=== PATIENT | female | born 1975 | race Caucasian/White ===

== ENCOUNTER → 2018-12-18 | Outpatient (CLI) | payer OTHER, SELFPAY ==
[2018-12-18 11:56] LABS: BUP Internal Control LINE = VALID (VALID); Buprenorphine Drug Screen Positive (<10 ng/mL)
[2018-12-18 12:11] LABS: Amphetamine Urine VISTA NEGATIVE (<1000 ng/mL); Barbiturate Urine VISTA NEGATIVE (< 200 ng/mL); Benzodiazepine Urine VISTA NEGATIVE (< 200 ng/mL); Cocaine Urine VISTA NEGATIVE (< 300 ng/mL); Ecstacy Urine VISTA POSITIVE (< 500 ng/mL); Methadone Urine VISTA NEGATIVE (< 300 ng/mL); PCP Urine VISTA NEGATIVE (< 25 ng/mL); THC Urine VISTA NEGATIVE (< 50 ng/mL); Vista UDS pH Range 5
== END | disposition home or self-care (01) ==
LOC: LAB 11:33
PROVIDERS: Family Provider Family Medicine; PCP Family Medicine; Referring Provider Anesthesiology Pain Medicine; Visit Provider Anesthesiology Pain Medicine
DX: F11.20 Opioid dependence, uncomplicated (principal)
CPT/HCPCS: 80307

== ENCOUNTER 2020-05-30 12:54 | Outpatient (RCR) | payer OTHER, SELFPAY ==
[2019-06-11 13:50] VITALS: BMI 48.7
--- NOTE | 2020-05-30 14:25 | HP.PTEVAL_ITS ---
Patient's Visit Information SARAVANAN POWELL is a 45 year old F referred to Physical Therapy by Dr. Sameer Matt MD with a diagnosis of Vertigo. Date of Evaluation: 05/30/20 Physical Therapist: LISA Mckinney - Visit Plan Frequency: 3x /Week Duration: 6 Weeks Plan: 2X/ week for 6 weeks for VOR progression from sitting to standing and then dynamic and habituation exercises wtih HEP. - Subjective This all started 05-03-2020. She started with her R ear was clogged and could not hear worse than before. She was very dizzy and was losing her balance and vomited. Ambulance and got her and she was in the hospital for 2 days and stroke was ruled out. Pt reports that she has vertigo. She describes it as dizzy nausea. She has better days than other days. Sometimes the room spins. She reports that one time she was just sitting and started spinning. Looking up is very hard for her. Normal day and will get very dizzy and nausea. She takes 2 of the meclazine and that helps some. She has had 2 major episodes since the hospital and the dizziness lasts an hour. Today she feels like her head is spacy....fighting a BHAGAT. She has had more BHAGAT. - Objective -L Hallpike for dizziness or nystagmus. -R Hallpike for dizziness or nystagmus but pt did not feel right and had increase in head pressure on the back of her head. Horizontal saccades.... increase head pressure on B side of head after about 20 seconds. Vertical saccades.... increased slight head pressure. head and eyes move together horizontal.... increase head pressure, slight dizziness, pt does not like to turn her head X 20 seconds but not steady... pt was clearly not comfortable doing this motion... made her head feel spacy. C-spine AROM: flex 100, ext 25% (increase dizzines), R rotation 50% and L Rotation 50%....hesitant to rotate sideways. Gait: walks very slow and guarded. Not able to walk and turn her head... she has to stop to turn her head and has a hard time turning to the L when standing as she feels she will go that dir ection. - Goals Goal 1:: I HEP Goal Time Frame: 1 Week Goal 2:: Be able to walk with head turns with a normal pace without getting dizzy or veering. Goal Time Frame: 4-6 Weeks Goal 3:: Be able to complete head and eye movements in standing X 60 seconds without dizziness Goal Time Frame: 4-6 Weeks - Rehabilitation Potential Rehabilitation Potential: Good - Anticipated Interventions Patient/Client Instruction: Educate patient on: Condition, Plan of Care For the Purpose of:: To increase ROM, To improve nutrient delivery to tissue, To improve muscle performance and motor function, To improve ability to perform ADL's, To increase tolerance to activity/condition/position, To improve performance and independence with ADL's, To decrease level of supervision to perform tasks, To improve ability of physical actions for home/community/work/leisure, To improve gait and locomotor functions, To decrease soft tissue restriction, To increase flexibility/ROM, To improve balance, To improve safety with gait Therapeutic Exercise to Include: Strength training, Balance training, Flexibilty training, Gait and locomotor training, Neuromotor development For the Purpose of:: To improve nutrient delivery to tissue, To increase oxygenation perfusion, To improve muscle performance and motor function, To improve ability to perform ADL's, To increase tolerance to activity/condition/position, To improve performance and independence with ADL's, To decrease level of supervision to perform tasks, To improve gait and locomotor functions, To improve health of tissue, To increase flexibility/ROM, To improve endurance, To improve balance, To improve safety with gait Functional Training to Include: Gait training For the Purpose of:: To improve gait and locomotor functions, To improve safety with gait Thank you for the opportunity to evaluate your patient. For Medicare and Medicare HMO plans, please review the plan of care and approve it. It will need to be FAXED BACK to us at [phone] for Medicare purposes. For Medicare only, by signing this I certify the plan of care. Please let me know if there are questions or concerns regarding this plan of care. Physician Signature: Date:
--- NOTE | 2020-08-09 11:46 | HP.PT.NRP ---
SARAVANAN POWELL was seen in my office for initial evaluation on 05/30/20. The following Plan of Care was established for this patient: Initial Frequency: 3x /Week Initial Duration: 6 Weeks Patient/Client Instruction: Educate patient on: Condition, Plan of Care For the Purpose of:: To increase ROM, To improve nutrient delivery to tissue, To improve muscle performance and motor function, To improve ability to perform ADL's, To increase tolerance to activity/condition/position, To improve performance and independence with ADL's, To decrease level of supervision to perform tasks, To improve ability of physical actions for home/community/work/leisure, To improve gait and locomotor functions, To decrease soft tissue restriction, To increase flexibility/ROM, To improve balance, To improve safety with gait Therapeutic Exercise to Include: Strength training, Balance training, Flexibilty training, Gait and locomotor training, Neuromotor development For the Purpose of:: To improve nutrient delivery to tissue, To increase oxygenation perfusion, To improve muscle performance and motor function, To improve ability to perform ADL's, To increase tolerance to activity/condition/position, To improve performance and independence with ADL's, To decrease level of supervision to perform tasks, To improve gait and locomotor functions, To improve health of tissue, To increase flexibility/ROM, To improve endurance, To improve balance, To improve safety with gait Functional Training to Include: Gait training For the Purpose of:: To improve gait and locomotor functions, To improve safety with gait This patient was last seen in our office 05/30/20. Pertinent comments regarding their Physical therapy will appear below: [facility] PT... pt cancelled his follow up appointment. At this point I will be discontinuing this patient from physical therapy. I would be happy to see this patient again in the future if found appropriate by the physician. Thank you! Alicia Calabrese, MPT
== END 2020-05-30 19:00 | disposition home or self-care (01) ==
LOC: PT 12:54
PROVIDERS: PCP Family Medicine; Referring Provider Family Medicine; Visit Provider Family Medicine
DX: R42 Dizziness and giddiness (principal)
CPT/HCPCS: 97162

== ENCOUNTER → 2020-11-24 08:53 | Outpatient (CLI) | payer OTHER, SELFPAY ==
[2019-06-11 13:50] VITALS: BMI 48.7
[2020-11-24 10:17] LABS: BUP Internal Control LINE = VALID (VALID); Buprenorphine Drug Screen Positive (<10 ng/mL)
[2020-11-24 10:26] LABS: Amphetamine Urine VISTA NEGATIVE (<1000 ng/mL); Barbiturate Urine VISTA NEGATIVE (< 200 ng/mL); Benzodiazepine Urine VISTA POSITIVE (< 200 ng/mL); Cocaine Urine VISTA NEGATIVE (< 300 ng/mL); Ecstacy Urine VISTA POSITIVE (< 500 ng/mL); Methadone Urine VISTA NEGATIVE (< 300 ng/mL); PCP Urine VISTA NEGATIVE (< 25 ng/mL); THC Urine VISTA NEGATIVE (< 50 ng/mL); Vista UDS pH Range 5
== END ==
PROVIDERS: PCP Family Medicine; Referring Provider Anesthesiology Pain Medicine; Visit Provider Anesthesiology Pain Medicine
DX: F11.20 Opioid dependence, uncomplicated (principal)
CPT/HCPCS: 80307

== ENCOUNTER 2021-01-15 01:24 | Emergency (ER) | payer OTHER, SELFPAY ==
[2019-06-11 13:50] VITALS: BMI 48.7
[2021-01-15 01:25] VITALS: BP 187/124; PULSE 90; RESP 28; TEMP 36.2; O2SAT 100; BMI 50.6
--- NOTE | 2021-01-15 01:35 | EX.ED.DYSGE1 ---
HPI History of Present Illness Chief Complaint: Flank Pain Narrative Narrative: 45-year-old female presenting with left flank pain. She states that the pain was acute in onset and woke her up from sleep. Patient states she had this pain in the past and was in the ED and had hematuria without finding of a kidney stone. She has associated nausea. Patient states that she has not had a kidney stone before. She has not had one since that time when she had flank pain. [facility] Medical History Anxiety and depression Arthritis Breast lump in female Carpal tunnel syndrome Diabetes Fibromyalgia Frequent headaches Hearing problem Hormone deficiency Home Medications buprenorphine 1 patch TD Q7D 04/12/17 [History Last Taken Unknown] cephalexin [Keflex] 500 mg PO 4X/DAY #30 capsule 04/12/17 [Rx Last Taken Unknown] duloxetine 60 mg PO BID 04/12/17 [History Last Taken Unknown] glimepiride 1 mg PO DAILY 04/12/17 [History Last Taken Unknown] metformin 1,000 mg PO BID 04/12/17 [History Last Taken Unknown] pregabalin 150 mg PO BID 04/12/17 [History Last Taken Unknown] tramadol 50 mg PO BID 04/12/17 [History Last Taken Unknown] alpha lipoic acid 300 mg capsule 300 mg PO DAILY 05/18/19 [History Last Taken Unknown] bupropion HCl 75 mg tablet 75 mg PO BID tab 05/18/19 [History Last Taken Unknown] cholecalciferol (vitamin D3) 250 mcg (10,000 unit) capsule 10,000 unit PO DAILY 05/18/19 [History Last Taken Unknown] conjugated estrogens 0.3 mg tablet 0.3 mg PO DAILY 05/18/19 [History Last Taken Unknown] esterified estrogens-methyltestosterone 0.625 mg-1.25 mg tablet 1 tab PO DAILY 05/18/19 [History Last Taken Unknown] metoprolol tartrate 25 mg tablet 25 mg PO BID 05/18/19 [History Last Taken Unknown] pyridoxine (vitamin B6) 100 mg tablet 100 mg PO DAILY 05/18/19 [History Last Taken Unknown] sulfamethoxazole-trimethoprim [Bactrim DS] 1 tab PO BID 14 Days #28 tab 01/15/21 [Rx Last Taken Unknown] Allergy/AdvReac Type Severity Reaction Status Date / Time acetaminophen [From Vicodin] AdvReac Unknown Verified 06/11/19 13:28 codeine AdvReac Unknown Verified 06/11/19 13:28 hydrocodone [From Vicodin] AdvReac Unknown Verified 06/11/19 13:28 Family History Other Arthritis Cancer Depression Diabetes Heart disease Hormone disorder Hypertension Severe allergy Skin cancer Surgical History H/O total hysterectomy History of cholecystectomy Social History Smoking Status: Former smoker alcohol intake: never substance use type: does not use additional social history: DOES NOT USE ASPIRIN DOES NOT USE IBUPROFEN ROS ROS ED Constitutional Constitutional ED: Denies chills, fever(s) or sweats Eyes Eyes: Denies blurry vision or change in vision ENT ENT ED: Denies ear pain or sore throat Cardiovascular Cardiovascular: Denies chest pain, palpitations or racing heartbeat Respiratory/Chest Respiratory/Chest: Denies cough, dyspnea or sputum Gastrointestinal Gastrointestinal: Reports nausea; Denies abdominal pain, constipation, diarrhea or vomiting Genitourinary Genitourinary ED: Denies dysuria, hematuria or urinary frequency Musculoskeletal Musculoskeletal: Reports other Details: Left flank pain ; Denies arthralgias, myalgias or neck pain Integumentary Denies abscess, Abrasions or rash Neurologic Neurologic: Denies headache(s), paresthesias or weakness Psychiatric Psychiatric: Denies anxiety, depression, suicidal ideation or suicidal thoughts Endocrine Endocrinology: Denies polydipsia or polyuria EXAM Physical Exam Const Vital Signs: 01/15/21 01:25 Temperature 97.2 F L Temperature Source Temporal Pulse Rate 90 Respiratory Rate 28 H Blood Pressure 187/124 H Blood Pressure Mean 145 Pulse Ox 100 Oxygen Delivery Method Room Air General Appearance ED: Negative for pallor HEENT Reports normocephalic, head/scalp atraumatic and moist mucous membranes Eyes PERRL and EOMs intact bilaterally Neck no lymphadenopathy and supple Resp normal respiratory effort and clear to auscultation bilaterally Auscultation: Negative for rales, rhonchi or wheezes Cardio regular rate and regular rhythm GI normal to inspection, nondistended, normoactive bowel sounds and non-distended Auscultation: normoactive bowel sounds Palpation: soft Narrative: Deferred Back/Spine no CVA tenderness General Back: Negative for CVA tenderness Cervical Spine: Negative for cervical spine tenderness Extremity normal to inspection General Extremety ED: Yes edema and tenderness General Extremity: edema Neuro oriented x3 and CN's II-XII intact bilaterally Sensorium / Orientation: alert Motor Exam: strength 5/5 throughout Psych mental status grossly normal Attitude: No agitated Skin no rashes or lesions noted and no wounds General Skin Exam: Negative for jaundice or pallor MDM MDM MDM Narrative Medical decision making narrative: 45-year-old female presenting with left flank pain which is acute in onset. She denies symptoms prior to this. She has history of this pain previously and had CT imaging which showed no kidney stone. She did not follow-up with urology. Patient states that this pain is similar. Urinalysis today shows positive nitrites without leukocyte Estrace, 0-5 squamous epithelial cells, 1+ bacteria. Patient's blood work shows a slight leukocytosis at 12.4, hemoglobin hematocrit stable. Platelet count 358. Patient had CT of the abdomen pelvis without IV contrast which shows no renal calculi. Patient states she had a history of a stent when she had previous endometriosis which was occluding her ureter. Patient's pain is better with morphine and she was given 1 oxycodone prior to discharge. I did not give her pain medication for home given that she is in pain management. Patient does have a UTI and I will treat her as pyelonephritis. She is given urology follow-up. It is possible she could have passed a stone. She is given strict return precautions. Patient stable for discharge at this time. Impression: 1. Hydronephrosis 2. Hydroureter 3. Hematuria 4. Pyelonephritis Lab Data Attestation: I reviewed the patient's lab results. Labs: Laboratory Results - last 24 hr 01/15/21 01/15/21 01/15/21 01:25 01:25 02:50 WBC 12.4 H RBC 4.94 Hgb 14.0 Hct 41.9 MCV 84.8 MCH 28.3 MCHC 33.4 RDW Std Deviation 40.7 RDW Coeff of Pritesh 13.3 Plt Count 358 MPV 11.3 Immature Gran % (Auto) 0.400 Neut % (Auto) 63.5 Lymph % (Auto) 27.5 [place] % (Auto) 6.5 Eos % (Auto) 1.5 Baso % (Auto) 0.6 Absolute Neuts (auto) 7.9 H Absolute Lymphs (auto) 3.41 Nucleated RBC % 0 Sodium 140 Potassium 3.9 Chloride 104 Carbon Dioxide 28.0 Anion Gap 8 BUN 18 Creatinine 1.28 H Estim Creat Clear Calc 46.92 Est GFR (MDRD) Af Amer 57 L Est GFR (MDRD) Non-Af 47 L BUN/Creatinine Ratio 14.1 Glucose 195 H Calcium 9.9 Urine Color SEE COMMENT BELOW Urine Clarity Cloudy Urine pH 5.0 Ur Specific [place] 1.030 Urine Protein 15 H Urine Glucose (UA) 50 H Urine Ketones Negative Urine Occult Blood 150 H Urine Nitrite Positive H Urine Bilirubin 3 H Urine Urobilinogen 4 H Ur Leukocyte Esterase Negative Urine RBC 5-10 SEEN Urine WBC 0 SEEN Ur Squamous Epith Cells 0-5 SEEN Urine Bacteria 1+ Urine Mucus 0 SEEN Radiography Diagnostic Testing: Radiology Impression Abdomen/Pelvis CT 01/15/21 02:15 IMPRESSION: Left-sided moderate hydronephrosis along with mild to moderate left-sided hydroureter with no distinct radiopaque stone along the trajectory of the left ureter. These findings may be related to a distal ureteral stricture given history of left ureteral stent. Differential diagnosis includes nonradiopaque stone, obstruction related to blood clot or atypical distal mass reflux not entirely excluded. Clinical correlation recommended. If indicated, these findings may further assessed with retrograde pyelogram. Status post cholecystectomy and hysterectomy. Otherwise no acute process within the abdomen or pelvis. Electronically Signed: Ebonie Finney MD at 3:09 EDT , Service support , Discharge Plan Triage Chief Complaint: Flank Pain ED Provider: Isac Cai Dx/Rx/DC Orders Instructions: ED Pyelonephritis, Female (Adult) Prescriptions: New sulfamethoxazole-trimethoprim [Bactrim DS] 800-160 mg tablet 1 tab PO BID 14 Days Qty: 28 RF: 0 No Action bupropion HCl 75 mg tablet 75 mg PO BID RF: 0 estrogens-methyltestosterone 0.625-1.25 mg tablet 1 tab PO DAILY RF: 0 Premarin 0.3 mg tablet 0.3 mg PO DAILY RF: 0 metoprolol tartrate 25 mg tablet 25 mg PO BID RF: 0 alpha lipoic acid 300 mg capsule 300 mg PO DAILY RF: 0 pyridoxine (vitamin B6) 100 mg tablet 100 mg PO DAILY RF: 0 cholecalciferol (vitamin D3) 10,000 unit capsule 10,000 unit PO DAILY RF: 0 tramadol 50 MG tablet 50 mg PO BID RF: 0 glimepiride 1 MG tablet 1 mg PO DAILY RF: 0 metformin 1,000 MG tablet 1,000 mg PO BID RF: 0 duloxetine 60 MG capsule 60 mg PO BID RF: 0 pregabalin 150 MG capsule 150 mg PO BID RF: 0 buprenorphine 1 EACH patch weekly 1 patch TD Q7D RF: 0 cephalexin [Keflex] 500 MG capsule 500 mg PO 4X/DAY Qty: 30 RF: 0 Primary Care Provider: Sameer Matt Referrals: Mayda Cerda MD [STAFF PHYSICIAN] - As soon as possible Sameer Matt MD [Primary Care Provider] - Disposition Disposition: Home, self care
[2021-01-15 01:39] LABS: Absolute Lymphocyte Count 3.41 X10^3/uL (0.83-4.51); Absolute Neutrophil Count 7.9 X10^3/uL (2.0-7.7); Basophil# 0.07 X10^3/uL; Basophil% 0.6 % (0-1); Eosinophil# 0.19 X10^3/uL; Eosinophils% 1.5 % (0-5); Hematocrit 41.9 % (37-47); Lymphocyte # 3.41 X10^3/ul (0.83-4.51); Lymphocyte % 27.5 % (19-41); Mean Corp Hgb Conc 33.4 g/dL (32-36); Mean Corpuscular Hgb 28.3 pg (27.0-32.0); Mean Corpuscular Volume 84.8 fL (81-99); Mean Platelet Vol. 11.3 fl (6.2-12.0); Monocyte# 0.81 X10^3/uL; Monocyte% 6.5 % (0-10); NRBC Flagged by Analyzer 0 % (0-5); Neutrophil # 7.86 X10^3/uL (2.7-7.7); Neutrophil % 63.5 % (47-70); Platelet Count 358 K/mm3 (150-450); RBC Distribution Width CV 13.3 % (11.6-14.6); RBC Distribution Width SD 40.7 fl (35.1-43.9); Red Blood Count 4.94 M/mm3 (4.2-5.4); White Blood Count 12.4 K/mm3 (4.4-11.0)
[2021-01-15] MEDS: Ketorolac 15 MG/ML Vial IV (01:41)
[2021-01-15] MEDS: Ondansetron 4 MG/2 ML Vial IV (01:41)
[2021-01-15] MEDS: Morphine 4 MG/ML Syringe IV (01:42)
[2021-01-15 01:49] LABS: Anion Gap 8 (5-15); BUN 18 mg/dL (7-18); BUN/Creat Ratio 14.1 RATIO (10-20); Calcium,Total 9.9 mg/dL (8.5-10.1); Chloride 104 mmol/L (98-107); Creatinine, Serum 1.28 mg/dL (0.55-1.02); EST Glomerular Filtration Rate 47 mL/min (>60); Est Glom Filt Rate - Afr Amer 57 mL/min (>60); Estimated Creatinine Clearance 46.92 ml/min; Glucose 195 mg/dL (74-106); Potassium 3.9 mmol/L (3.5-5.1); Sodium Level 140 mmol/L (136-145)
--- NOTE | 2021-01-15 02:15 | CT_ITS ---
STUDY: CT ABDOMEN AND PELVIS WITHOUT CONTRAST REASON FOR EXAM: Female, 45 years old. left flank pain RADIATION DOSAGE (If Supplied By Facility): CTDIvol = ( 24.15 ) mGy, DLP = ( 1284.94 ) mGycm TECHNIQUE: Transaxial images were obtained from the dome of the diaphragm to the symphysis pubis without oral contrast, and without intravenous contrast. Sagittal and coronal images were reconstructed. Individualized dose optimization techniques were used for this CT. COMPARISON: None. FINDINGS: Mild posterior dependent atelectasis, remainder of the lung bases are clear. The visualized portions of the heart are within normal limits. Normal liver. There are surgical clips in the gallbladder fossa consistent with a prior cholecystectomy. Normal spleen. Normal pancreas. Normal bilateral adrenal glands. Normal right kidney. Moderate left-sided hydronephrosis and hydroureter. The left ureter is dilated to the distal aspect near the UV junction. There is no evidence of radiopaque stone along the trajectory of the left ureter. These findings may be due to nonradiopaque stone, structure related to a blood clot, distal stricture. Normal visualized stomach. Normal small intestine. Normal colon. The appendix is visualized and appears normal. Normal abdominal aorta. Normal inferior vena cava. Normal retroperitoneum. Normal urinary bladder. There is absence of the uterus consistent with a prior hysterectomy. Normal abdominal wall. There are diffuse degenerative changes of the visualized lumbar spine. CT/Abdomen/Pelvis without Cont IMPRESSION: Left-sided moderate hydronephrosis along with mild to moderate left-sided hydroureter with no distinct radiopaque stone along the trajectory of the left ureter. These findings may be related to a distal ureteral stricture given history of left ureteral stent. Differential diagnosis includes nonradiopaque stone, obstruction related to blood clot or atypical distal mass reflux not entirely excluded. Clinical correlation recommended. If indicated, these findings may further assessed with retrograde pyelogram. Status post cholecystectomy and hysterectomy. Otherwise no acute process within the abdomen or pelvis. Electronically Signed: Ebonie Finney MD at 3:09 EDT , Service support ,
[2021-01-15] MEDS: 0.9% Normal Saline 1,000 ML 999 ML IV (02:24)
[2021-01-15 02:54] LABS: Mucous, Urine 0 SEEN /hpf (<or=2+); White Blood Cells 0 SEEN /hpf (0-5)
[2021-01-15 02:56] LABS: Glucose, Dipstick 50 mg/dl (Normal); Ketone-Dipstick Negative (Negative); Leukocyte Esterase-Dipstick Negative /ul (Negative); Nitrite-Dipstick Positive (Negative); Occult Blood-Urine 150 /ul (Negative); Protein-Dipstick 15 mg/dl (Negative); Urine Clarity Cloudy (Clear); Urine Urobilinogen 4 mg/dl (Normal)
[2021-01-15 02:57] LABS: Color, Urine SEE COMMENT BELOW (Yellow); Urine Bilirubin Dipstick 3 mg/dL (Negative)
[2021-01-15 03:02] LABS: Bacteria 1+ /hpf (None Seen); Red Blood Cells-Urine 5-10 SEEN /hpf (0-5); Squamous Epithelial Cells - UA 0-5 SEEN /hpf (5-10)
[2021-01-15] MEDS: Smz/Tmp Ds Tablet 1 TABLET PO (03:40)
[2021-01-15] MEDS: oxyCODONE 5 MG Tablet PO (03:40)
[2021-01-15 03:43] VITALS: BP 150/85; PULSE 88; RESP 16; O2SAT 96
== END 2021-01-15 03:45 | disposition home or self-care (01) ==
PROVIDERS: Emergency Provider Student in an Organized Health Care Education/Training Program; PCP Family Medicine
DX: N13.6 Pyonephrosis (principal); E11.9 Type 2 diabetes mellitus without complications; M79.7 Fibromyalgia; F32.9 Major depressive disorder, single episode, unspecified; F41.9 Anxiety disorder, unspecified; G56.00 Carpal tunnel syndrome, unspecified upper limb; M19.90 Unspecified osteoarthritis, unspecified site; Z79.84 Long term (current) use of oral hypoglycemic drugs; Z79.899 Other long term (current) drug therapy; Z87.891 Personal history of nicotine dependence
CPT/HCPCS: 74176; 80048; 81001; 85025; 87086; 87088; 96361; 96374; 96375; 99284; J7030; A4216; J2405

== ENCOUNTER → 2022-08-10 | Outpatient (CLI) | payer OTHER, MEDICARE, SELFPAY ==
--- NOTE | 2022-08-10 16:45 | MRI_ITS ---
EXAM: MR LEFT UPPER EXTREMITY WITHOUT INTRAVENOUS CONTRAST, WRIST CLINICAL INDICATION: LEFT wrist pain carpal tunnel syndrome TECHNIQUE: Multiplanar and multisequence MR images of the left wrist without intravenous contrast. This report was created using [employer] report [employer] technology. COMPARISON: None. FINDINGS: ARTIFACTS: Significant motion artifact limits assessment. LIGAMENTS: SCAPHOLUNATE: Unremarkable. Intact. LUNOTRIQUETRAL: Unremarkable. Intact. TENDONS: FLEXOR COMPARTMENTS: Unremarkable. Intact. No tenosynovitis. EXTENSOR COMPARTMENTS: Unremarkable. Intact. No tenosynovitis. NERVES: MEDIAN: Normal views of the median nerve. ULNAR: Unremarkable. Ulnar nerve is normal in size and signal intensity. MUSCLES: Unremarkable. FLUID: No significant wrist joint effusion. No ganglion cyst or other masses. CARTILAGE: Unremarkable. The articular cartilage is preserved. TRIANGULAR FIBROCARTILAGE COMPLEX: Unremarkable. Intact without communicating defect. BONES/JOINTS: Moderate degenerative changes of the first metacarpal joint with capsular thickening. No fracture. No abnormal bone marrow signal. No joint effusion or synovitis. OTHER SOFT TISSUES: Unremarkable. No ganglion. MRI/Upper Ext Joint Only(Routine) IMPRESSION: No other remarkable marrow signal alterations. Moderate degenerative changes of the first metacarpal joint with capsular thickening. Electronically Signed: Julio Skinner MD at 2:20 EST ,
--- NOTE | 2022-08-10 17:30 | MRI_ITS ---
EXAM: MR RIGHT UPPER EXTREMITY WITHOUT INTRAVENOUS CONTRAST, WRIST CLINICAL INDICATION: RIGHT wrist pain TECHNIQUE: Multiplanar and multisequence MR images of the right wrist without intravenous contrast. This report was created using [employer] report [employer] technology. COMPARISON: None. FINDINGS: LIGAMENTS: SCAPHOLUNATE: Unremarkable. Intact. LUNOTRIQUETRAL: Unremarkable. Intact. TENDONS: FLEXOR COMPARTMENTS: Unremarkable. Intact. No tenosynovitis. EXTENSOR COMPARTMENTS: Extensor carpi ulnaris tendinosis without tendon tearing. No tenosynovitis. NERVES: MEDIAN: Unremarkable. Median nerve is normal in size and signal intensity. ULNAR: Unremarkable. Ulnar nerve is normal in size and signal intensity. MUSCLES: Unremarkable. FLUID: No organized fluid collections are identified. CARTILAGE: Unremarkable. The articular cartilage is preserved. TRIANGULAR FIBROCARTILAGE COMPLEX: Unremarkable. Intact without communicating defect. BONES/JOINTS: No concerning bone marrow signal alterations. OTHER SOFT TISSUES: Mild subcutaneous edema along the dorsal/ulnar aspect of the wrist. No ganglion. OTHER FINDINGS: Neurovascular structures are unremarkable. MRI/Upper Ext Joint Only(Routine) IMPRESSION: Extensor carpi ulnaris tendinosis without tendon tearing. No other significant internal derangement. Electronically Signed: Julio Skinner MD at 2:14 EST ,
== END | disposition home or self-care (01) ==
LOC: MRI 16:12
PROVIDERS: PCP Family Medicine; Visit Provider Orthopaedic Surgery
DX: G56.03 Carpal tunnel syndrome, bilateral upper limbs (principal); M25.532 Pain in left wrist
CPT/HCPCS: 73221

== ENCOUNTER → 2022-09-25 | Outpatient (CLI) | payer OTHER, MEDICARE, SELFPAY ==
[2022-09-25 18:20] LABS: Absolute Neutrophil Count 7.5 X10^3/uL (2.0-7.7); Basophil# 0.08 X10^3/uL; Basophil% 0.8 % (0-1); Eosinophil# 0.06 X10^3/uL; Eosinophils% 0.6 % (0-5); Hematocrit 39.2 % (37-47); Hemoglobin 12.5 g/dL (12.0-15.0); Lymphocyte % 13.6 % (19-41); Mean Corp Hgb Conc 31.9 g/dL (32-36); Mean Corpuscular Hgb 26.8 pg (27.0-32.0); Mean Corpuscular Volume 83.9 fL (81-99); Mean Platelet Vol. 11.8 fl (6.2-12.0); Monocyte# 0.47 X10^3/uL; Monocyte% 4.9 % (0-10); NRBC Flagged by Analyzer 0 % (0-5); Neutrophil # 7.49 X10^3/uL (2.7-7.7); Neutrophil % 78.7 % (47-70); Platelet Count 320 K/mm3 (150-450); RBC Distribution Width CV 13.4 % (11.6-14.6); RBC Distribution Width SD 41.3 fl (35.1-43.9); Red Blood Count 4.67 M/mm3 (4.2-5.4); White Blood Count 9.5 K/mm3 (4.4-11.0)
[2022-09-25 18:47] LABS: AST(SGOT) 22 U/L (15-37); Alanine Aminotransfer ALT/SGPT 40 U/L (13-56); Albumin, Serum 3.7 g/dL (3.2-5.0); Alkaline Phosphatase 82 U/L (45-117); Anion Gap 8 (5-15); BUN 20 mg/dL (7-18); BUN/Creat Ratio 24.3 RATIO (10-20); Calcium,Total 9.3 mg/dL (8.5-10.1); Chloride 106 mmol/L (98-107); Creatinine, Serum 0.82 mg/dL (0.55-1.02); EST Glomerular Filtration Rate 78 mL/min (>60); Est Glom Filt Rate - Afr Amer 95 mL/min (>60); Globulin 3.7 g/dL (2.2-4.2); Glucose 165 mg/dL (74-106); Potassium 4.6 mmol/L (3.5-5.1); Protein, Total 7.4 g/dL (6.4-8.2); Sodium Level 141 mmol/L (136-145)
== END | disposition home or self-care (01) ==
LOC: MTLAB 16:35
PROVIDERS: PCP Family Medicine; Referring Provider Internal Medicine Rheumatology; Visit Provider Internal Medicine Rheumatology
DX: M06.4 Inflammatory polyarthropathy (principal); Z79.899 Other long term (current) drug therapy
CPT/HCPCS: 36415; 80053; 85025

== ENCOUNTER → 2022-10-15 | Outpatient (CLI) | payer OTHER, MEDICARE, SELFPAY ==
--- NOTE | 2022-10-15 09:45 | ASPOS_PTH ---
PATIENT: SARAVANAN POWELL LOC: LAB U#:[id number] AGE/SX: 47/F ROOM: RE10/15/[address]: Dr. Abe Haley MD : 1975 BED: DIS: 10/15/2022 SPEC #: [id number] RECD: 10/15/22 10:00 STATUS: SUSANA SINGH #: [id number] WILY: 10/15/22 09:[address]: Abe Haley DEPT: CYTOLOGY RECD BY: Emerald Fierro ENTERED: 10/15/22 10:39 SP TYPE: ASP HERE OTHR DR: Dr. Sameer Matt MD Tissues: Parotid gland, NOS Procedures: Surgery Specimen Level IV Cytology Other Fine Needle Asp on Site HEADER OPERATION: Fine needle aspiration left parotid mass PRE-OP DIAGNOSIS: Left parotid mass TISSUE SUBMITTED: Left parotid mass DIAGNOSIS CYTOLOGY Fine needle aspiration, left parotid mass (smears and cell block): Benign salivary gland tissue. Consistent with benign cyst contents. AM:clarke 10/16/2022 COMMENT The specimen is evaluated at the time of FNA by Dr. Mcgrath. Immediate Evaluation = Benign salivary gland tissue. Consistent with contents of benign cyst. CYTOLOGY STUDY Slides are reviewed. CYTOLOGY GROSS Received is 2.0 ml of light boggs fluid labeled with the patient's name, and designated left parotid mass. Six imprints and two paps are made from the submitted fluid and the rest is added to CytoLyt for cell block preparation. Submitted for cytology study. / AM:clarke 10/15/2022 TC:5 CPT: 10033, 26765, 09630, 98451
== END | disposition home or self-care (01) ==
LOC: LAB 09:29
PROVIDERS: PCP Family Medicine; Referring Provider Otolaryngology; Visit Provider Otolaryngology
DX: D11.0 Benign neoplasm of parotid gland (principal)
CPT/HCPCS: 10021; 88161; 88305

== ENCOUNTER → 2022-10-24 | Outpatient (CLI) | payer OTHER, MEDICARE, SELFPAY ==
--- NOTE | 2022-10-24 10:32 | RAD_ITS ---
EXAM: XR BILATERAL HIPS WITH PELVIS WHEN PERFORMED, 2 VIEWS CLINICAL INDICATION: BILATERAL HIP OA TECHNIQUE: Frontal view of the bilateral hips with pelvis when performed. This report was created using [employer] report generation technology. COMPARISON: None. FINDINGS: BONES/JOINTS: The hip joint spaces are relatively preserved. Minimal degenerative spurring noted about both hips. No abnormal sclerosis or lucency noted within the femoral heads. Lower lumbar facet arthritis is present. No acute fracture or dislocation. SI joints are unremarkable. SOFT TISSUES: Surgical clips are noted within the pelvis. No soft tissue swelling or gas. RAD/Hips B/L min 2 views w/ Pelvis IMPRESSION: Minimal degenerative spurring about both hip joints, without joint space narrowing. Lumbar facet arthritis. No acute findings in the pelvis or bilateral hips. Electronically Signed: Jordan Calles MD at 5:51 EST ,
[2022-10-24 11:10] LABS: BUP Internal Control LINE = VALID (VALID); Buprenorphine Drug Screen Positive (<10 ng/mL)
[2022-10-24 11:16] LABS: Amphetamine Urine VISTA NEGATIVE (<1000 ng/mL); Barbiturate Urine VISTA NEGATIVE (< 200 ng/mL); Benzodiazepine Urine VISTA NEGATIVE (< 200 ng/mL); Cocaine Urine VISTA NEGATIVE (< 300 ng/mL); Ecstacy Urine VISTA POSITIVE (< 500 ng/mL); Methadone Urine VISTA NEGATIVE (< 300 ng/mL); PCP Urine VISTA NEGATIVE (< 25 ng/mL); THC Urine VISTA NEGATIVE (< 50 ng/mL); Vista UDS pH Range 4
== END | disposition home or self-care (01) ==
PROVIDERS: PCP Family Medicine; Referring Provider Anesthesiology Pain Medicine; Visit Provider Anesthesiology Pain Medicine
DX: F11.20 Opioid dependence, uncomplicated (principal); M16.0 Bilateral primary osteoarthritis of hip
CPT/HCPCS: 73521; 80307

== ENCOUNTER → 2022-12-04 | Outpatient (CLI) | payer OTHER, MEDICARE, SELFPAY ==
[2022-12-04 15:22] LABS: Absolute Lymphocyte Count 2.03 X10^3/uL (0.83-4.51); Basophil# 0.05 X10^3/uL; Basophil% 0.6 % (0-1); Eosinophil# 0.14 X10^3/uL; Eosinophils% 1.6 % (0-5); Hematocrit 40.2 % (37-47); Hemoglobin 12.8 g/dL (12.0-15.0); Lymphocyte # 2.03 X10^3/ul (0.83-4.51); Lymphocyte % 23.4 % (19-41); Mean Corp Hgb Conc 31.8 g/dL (32-36); Mean Corpuscular Hgb 26.8 pg (27.0-32.0); Mean Corpuscular Volume 84.3 fL (81-99); Mean Platelet Vol. 11.7 fl (6.2-12.0); Monocyte# 0.43 X10^3/uL; NRBC Flagged by Analyzer 0 % (0-5); Neutrophil # 5.99 X10^3/uL (2.7-7.7); Neutrophil % 68.9 % (47-70); Platelet Count 300 K/mm3 (150-450); RBC Distribution Width CV 13.8 % (11.6-14.6); Red Blood Count 4.77 M/mm3 (4.2-5.4); White Blood Count 8.7 K/mm3 (4.4-11.0)
[2022-12-04 15:46] LABS: AST(SGOT) 22 U/L (15-37); Alanine Aminotransfer ALT/SGPT 47 U/L (13-56); Albumin, Serum 3.6 g/dL (3.2-5.0); Alkaline Phosphatase 79 U/L (45-117); Anion Gap 7 (5-15); BUN 14 mg/dL (7-18); BUN/Creat Ratio 17.9 RATIO (10-20); Calcium,Total 9.2 mg/dL (8.5-10.1); Chloride 105 mmol/L (98-107); Creatinine, Serum 0.78 mg/dL (0.55-1.02); EST Glomerular Filtration Rate 83 mL/min (>60); Est Glom Filt Rate - Afr Amer 100 mL/min (>60); Globulin 3.5 g/dL (2.2-4.2); Glucose 125 mg/dL (74-106); Potassium 3.9 mmol/L (3.5-5.1); Protein, Total 7.1 g/dL (6.4-8.2); Sodium Level 137 mmol/L (136-145)
== END | disposition home or self-care (01) ==
LOC: MTLAB 11:18
PROVIDERS: PCP Family Medicine; Referring Provider Internal Medicine Rheumatology; Visit Provider Internal Medicine Rheumatology
DX: M06.4 Inflammatory polyarthropathy (principal); E11.9 Type 2 diabetes mellitus without complications; Z79.899 Other long term (current) drug therapy; M79.7 Fibromyalgia; M47.897 Other spondylosis, lumbosacral region; M17.0 Bilateral primary osteoarthritis of knee; I10 Essential (primary) hypertension; R51.0 Headache with orthostatic component, not elsewhere classified; F32.A Depression, unspecified; K76.0 Fatty (change of) liver, not elsewhere classified
CPT/HCPCS: 36415; 80053; 85025

== ENCOUNTER → 2023-01-25 | Outpatient (CLI) | payer OTHER, MEDICARE, SELFPAY ==
[2023-01-25 17:59] LABS: Absolute Lymphocyte Count 2.51 X10^3/uL (0.83-4.51); Absolute Neutrophil Count 6.8 X10^3/uL (2.0-7.7); Basophil# 0.07 X10^3/uL; Basophil% 0.7 % (0-1); Eosinophil# 0.17 X10^3/uL; Eosinophils% 1.7 % (0-5); Hematocrit 40.5 % (37-47); Hemoglobin 13.3 g/dL (12.0-15.0); Lymphocyte # 2.51 X10^3/ul (0.83-4.51); Mean Corp Hgb Conc 32.8 g/dL (32-36); Mean Corpuscular Hgb 27.8 pg (27.0-32.0); Mean Corpuscular Volume 84.7 fL (81-99); Mean Platelet Vol. 11.7 fl (6.2-12.0); Monocyte# 0.47 X10^3/uL; Monocyte% 4.7 % (0-10); NRBC Flagged by Analyzer 0 % (0-5); Neutrophil % 67.5 % (47-70); Platelet Count 284 K/mm3 (150-450); RBC Distribution Width CV 15.1 % (11.6-14.6); RBC Distribution Width SD 46.4 fl (35.1-43.9); Red Blood Count 4.78 M/mm3 (4.2-5.4); White Blood Count 10.1 K/mm3 (4.4-11.0)
[2023-01-25 18:04] LABS: ALB/GLOB Ratio 0.9 RATIO (0.9-2.4); AST(SGOT) 27 U/L (15-37); Alanine Aminotransfer ALT/SGPT 51 U/L (13-56); Albumin, Serum 3.9 g/dL (3.2-5.0); Alkaline Phosphatase 88 U/L (45-117); Anion Gap 8 (5-15); BUN 18 mg/dL (7-18); BUN/Creat Ratio 18.9 RATIO (10-20); Calcium,Total 9.4 mg/dL (8.5-10.1); Chloride 107 mmol/L (98-107); Creatinine, Serum 0.95 mg/dL (0.55-1.02); EST Glomerular Filtration Rate 66 mL/min (>60); Est Glom Filt Rate - Afr Amer 80 mL/min (>60); Globulin 4.2 g/dL (2.2-4.2); Glucose 117 mg/dL (74-106); Protein, Total 8.1 g/dL (6.4-8.2); Sodium Level 140 mmol/L (136-145)
== END | disposition home or self-care (01) ==
LOC: MTLAB 14:38
PROVIDERS: PCP Family Medicine; Referring Provider Internal Medicine Rheumatology; Visit Provider Internal Medicine Rheumatology
DX: M06.4 Inflammatory polyarthropathy (principal); Z79.899 Other long term (current) drug therapy; M79.7 Fibromyalgia
CPT/HCPCS: 36415; 80053; 85025

== ENCOUNTER → 2023-03-14 | Outpatient (CLI) | payer OTHER, MEDICARE, SELFPAY ==
[2023-03-14 12:48] LABS: Absolute Lymphocyte Count 1.92 X10^3/uL (0.83-4.51); Absolute Neutrophil Count 4.2 X10^3/uL (2.0-7.7); Basophil# 0.08 X10^3/uL; Basophil% 1.2 % (0-1); Eosinophil# 0.18 X10^3/uL; Eosinophils% 2.6 % (0-5); Hemoglobin 12.6 g/dL (12.0-15.0); Lymphocyte # 1.92 X10^3/ul (0.83-4.51); Lymphocyte % 27.7 % (19-41); Mean Corp Hgb Conc 32.3 g/dL (32-36); Mean Corpuscular Hgb 28.3 pg (27.0-32.0); Mean Corpuscular Volume 87.6 fL (81-99); Mean Platelet Vol. 11.7 fl (6.2-12.0); Monocyte# 0.53 X10^3/uL; Monocyte% 7.7 % (0-10); NRBC Flagged by Analyzer 0 % (0-5); Neutrophil # 4.17 X10^3/uL (2.7-7.7); Neutrophil % 60.2 % (47-70); Platelet Count 263 K/mm3 (150-450); RBC Distribution Width CV 14.4 % (11.6-14.6); RBC Distribution Width SD 46.4 fl (35.1-43.9); Red Blood Count 4.45 M/mm3 (4.2-5.4); White Blood Count 6.9 K/mm3 (4.4-11.0)
[2023-03-14 13:05] LABS: ALB/GLOB Ratio 1.1 RATIO (0.9-2.4); AST(SGOT) 16 U/L (15-37); Alanine Aminotransfer ALT/SGPT 32 U/L (13-56); Albumin, Serum 3.4 g/dL (3.2-5.0); Alkaline Phosphatase 89 U/L (45-117); Anion Gap 4 (5-15); BUN 16 mg/dL (7-18); BUN/Creat Ratio 21.9 RATIO (10-20); Chloride 107 mmol/L (98-107); Creatinine, Serum 0.73 mg/dL (0.55-1.02); EST Glomerular Filtration Rate 89 mL/min (>60); Est Glom Filt Rate - Afr Amer 108 mL/min (>60); Globulin 3.2 g/dL (2.2-4.2); Glucose 175 mg/dL (74-106); Potassium 4.7 mmol/L (3.5-5.1); Protein, Total 6.6 g/dL (6.4-8.2); Sodium Level 138 mmol/L (136-145)
== END | disposition home or self-care (01) ==
LOC: MTLAB 10:10
PROVIDERS: PCP Family Medicine; Visit Provider Internal Medicine Rheumatology
DX: M06.4 Inflammatory polyarthropathy (principal); Z79.899 Other long term (current) drug therapy
CPT/HCPCS: 36415; 80053; 85025

== ENCOUNTER → 2023-05-21 | Outpatient (CLI) | payer OTHER, MEDICARE, SELFPAY ==
[2023-05-21 15:21] LABS: Absolute Lymphocyte Count 1.99 X10^3/uL (0.83-4.51); Absolute Neutrophil Count 5.8 X10^3/uL (2.0-7.7); Basophil# 0.08 X10^3/uL; Basophil% 0.9 % (0-1); Eosinophil# 0.21 X10^3/uL; Eosinophils% 2.5 % (0-5); Hematocrit 42.7 % (37-47); Hemoglobin 13.7 g/dL (12.0-15.0); Lymphocyte # 1.99 X10^3/ul (0.83-4.51); Lymphocyte % 23.6 % (19-41); Mean Corp Hgb Conc 32.1 g/dL (32-36); Mean Corpuscular Volume 87.1 fL (81-99); Mean Platelet Vol. 10.8 fl (6.2-12.0); Monocyte# 0.38 X10^3/uL; Monocyte% 4.5 % (0-10); NRBC Flagged by Analyzer 0 % (0-5); Neutrophil # 5.76 X10^3/uL (2.7-7.7); Neutrophil % 68.3 % (47-70); Platelet Count 299 K/mm3 (150-450); RBC Distribution Width CV 13.7 % (11.6-14.6); RBC Distribution Width SD 43.6 fl (35.1-43.9); White Blood Count 8.4 K/mm3 (4.4-11.0)
[2023-05-21 16:36] LABS: AST(SGOT) 18 U/L (15-37); Alanine Aminotransfer ALT/SGPT 41 U/L (13-56); Albumin, Serum 3.7 g/dL (3.2-5.0); Alkaline Phosphatase 105 U/L (45-117); Anion Gap 7 (5-15); BUN 20 mg/dL (7-18); BUN/Creat Ratio 23.2 RATIO (10-20); Chloride 106 mmol/L (98-107); Creatinine, Serum 0.86 mg/dL (0.55-1.02); EST Glomerular Filtration Rate 74 mL/min (>60); Est Glom Filt Rate - Afr Amer 90 mL/min (>60); Globulin 3.6 g/dL (2.2-4.2); Glucose 202 mg/dL (74-106); Potassium 4.3 mmol/L (3.5-5.1); Protein, Total 7.3 g/dL (6.4-8.2); Sodium Level 140 mmol/L (136-145)
== END | disposition home or self-care (01) ==
LOC: MTLAB 11:43
PROVIDERS: PCP Family Medicine; Referring Provider Internal Medicine Rheumatology; Visit Provider Internal Medicine Rheumatology
DX: M06.4 Inflammatory polyarthropathy (principal); E11.9 Type 2 diabetes mellitus without complications; Z79.899 Other long term (current) drug therapy; M79.7 Fibromyalgia; M17.0 Bilateral primary osteoarthritis of knee; I10 Essential (primary) hypertension; R51.9 Headache, unspecified; F32.A Depression, unspecified; G54.5 Neuralgic amyotrophy; K76.0 Fatty (change of) liver, not elsewhere classified
CPT/HCPCS: 36415; 80053; 85025

== ENCOUNTER → 2023-07-12 | Outpatient (CLI) | payer OTHER, MEDICARE, SELFPAY ==
[2023-07-12 18:45] LABS: Absolute Lymphocyte Count 1.82 X10^3/uL (0.83-4.51); Absolute Neutrophil Count 10.9 X10^3/uL (2.0-7.7); Basophil# 0.06 X10^3/uL; Basophil% 0.4 % (0-1); Eosinophil# 0.14 X10^3/uL; Hematocrit 37.9 % (37-47); Hemoglobin 12.2 g/dL (12.0-15.0); Lymphocyte # 1.82 X10^3/ul (0.83-4.51); Lymphocyte % 13.2 % (19-41); Mean Corp Hgb Conc 32.2 g/dL (32-36); Mean Corpuscular Hgb 27.4 pg (27.0-32.0); Mean Platelet Vol. 11.8 fl (6.2-12.0); Monocyte# 0.62 X10^3/uL; Monocyte% 4.5 % (0-10); NRBC Flagged by Analyzer 0 % (0-5); Neutrophil # 10.91 X10^3/uL (2.7-7.7); Neutrophil % 79.5 % (47-70); Platelet Count 370 K/mm3 (150-450); RBC Distribution Width CV 13.7 % (11.6-14.6); RBC Distribution Width SD 42.2 fl (35.1-43.9); Red Blood Count 4.46 M/mm3 (4.2-5.4); White Blood Count 13.7 K/mm3 (4.4-11.0)
[2023-07-12 19:11] LABS: AST(SGOT) 7 U/L (15-37); Alanine Aminotransfer ALT/SGPT 28 U/L (13-56); Albumin, Serum 3.5 g/dL (3.2-5.0); Alkaline Phosphatase 91 U/L (45-117); Anion Gap 7 (5-15); BUN 19 mg/dL (7-18); BUN/Creat Ratio 19.8 RATIO (10-20); Calcium,Total 8.9 mg/dL (8.5-10.1); Chloride 105 mmol/L (98-107); Creatinine, Serum 0.96 mg/dL (0.55-1.02); EST Glomerular Filtration Rate 65 mL/min (>60); Est Glom Filt Rate - Afr Amer 79 mL/min (>60); Globulin 3.5 g/dL (2.2-4.2); Glucose 234 mg/dL (74-106); Potassium 4.3 mmol/L (3.5-5.1); Sodium Level 138 mmol/L (136-145)
== END | disposition home or self-care (01) ==
LOC: MTLAB 16:19
PROVIDERS: PCP Family Medicine; Referring Provider Internal Medicine Rheumatology; Visit Provider Internal Medicine Rheumatology
DX: M06.4 Inflammatory polyarthropathy (principal); Z79.899 Other long term (current) drug therapy; M79.7 Fibromyalgia
CPT/HCPCS: 36415; 80053; 85025

== ENCOUNTER → 2023-09-20 | Outpatient (CLI) | payer OTHER, MEDICARE, SELFPAY ==
[2023-09-20 17:42] LABS: Absolute Lymphocyte Count 2.07 X10^3/uL (0.83-4.51); Absolute Neutrophil Count 5.8 X10^3/uL (2.0-7.7); Basophil# 0.07 X10^3/uL; Basophil% 0.8 % (0-1); Eosinophil# 0.14 X10^3/uL; Eosinophils% 1.6 % (0-5); Hematocrit 37.6 % (37-47); Hemoglobin 12.2 g/dL (12.0-15.0); Lymphocyte # 2.07 X10^3/ul (0.83-4.51); Lymphocyte % 23.8 % (19-41); Mean Corp Hgb Conc 32.4 g/dL (32-36); Mean Corpuscular Hgb 27.7 pg (27.0-32.0); Mean Corpuscular Volume 85.5 fL (81-99); Mean Platelet Vol. 11.8 fl (6.2-12.0); Monocyte# 0.58 X10^3/uL; Monocyte% 6.7 % (0-10); NRBC Flagged by Analyzer 0 % (0-5); Neutrophil # 5.77 X10^3/uL (2.7-7.7); Neutrophil % 66.4 % (47-70); Platelet Count 298 K/mm3 (150-450); RBC Distribution Width CV 14.1 % (11.6-14.6); RBC Distribution Width SD 43.8 fl (35.1-43.9); White Blood Count 8.7 K/mm3 (4.4-11.0)
[2023-09-20 18:09] LABS: AST(SGOT) 17 U/L (15-37); Alanine Aminotransfer ALT/SGPT 34 U/L (13-56); Albumin, Serum 3.5 g/dL (3.2-5.0); Alkaline Phosphatase 91 U/L (45-117); Anion Gap 4 (5-15); BUN 13 mg/dL (7-18); Calcium,Total 9.3 mg/dL (8.5-10.1); Chloride 106 mmol/L (98-107); Creatinine, Serum 0.81 mg/dL (0.55-1.02); EST Glomerular Filtration Rate 79 mL/min (>60); Est Glom Filt Rate - Afr Amer 96 mL/min (>60); Globulin 3.5 g/dL (2.2-4.2); Glucose 172 mg/dL (74-106); Potassium 3.7 mmol/L (3.5-5.1); Sodium Level 140 mmol/L (136-145)
== END | disposition home or self-care (01) ==
LOC: MTLAB 15:57
PROVIDERS: PCP Family Medicine; Referring Provider Internal Medicine Rheumatology; Visit Provider Internal Medicine Rheumatology
DX: M06.4 Inflammatory polyarthropathy (principal); Z79.899 Other long term (current) drug therapy; M79.7 Fibromyalgia
CPT/HCPCS: 36415; 80053; 85025

== ENCOUNTER → 2023-10-30 | Outpatient (CLI) | payer OTHER, MEDICARE, SELFPAY ==
[2023-10-30 11:36] LABS: Amphetamine Urine VISTA NEGATIVE (<1000 ng/mL); Barbiturate Urine VISTA NEGATIVE (< 200 ng/mL); Benzodiazepine Urine VISTA NEGATIVE (< 200 ng/mL); Cocaine Urine VISTA NEGATIVE (< 300 ng/mL); Ecstacy Urine VISTA POSITIVE (< 500 ng/mL); Methadone Urine VISTA NEGATIVE (< 300 ng/mL); PCP Urine VISTA NEGATIVE (< 25 ng/mL); THC Urine VISTA NEGATIVE (< 50 ng/mL); Vista UDS pH Range 5
== END | disposition home or self-care (01) ==
PROVIDERS: PCP Family Medicine; Referring Provider Anesthesiology Pain Medicine; Visit Provider Anesthesiology Pain Medicine
DX: F11.20 Opioid dependence, uncomplicated (principal)
CPT/HCPCS: 80307

== ENCOUNTER → 2023-12-16 | Outpatient (CLI) | payer OTHER, MEDICARE, SELFPAY ==
[2023-12-16 17:26] LABS: Absolute Lymphocyte Count 2.17 X10^3/uL (0.83-4.51); Absolute Neutrophil Count 4.8 X10^3/uL (2.0-7.7); Basophil# 0.04 X10^3/uL; Basophil% 0.5 % (0-1); Eosinophil# 0.16 X10^3/uL; Eosinophils% 2.1 % (0-5); Hematocrit 38.4 % (37-47); Lymphocyte # 2.17 X10^3/ul (0.83-4.51); Mean Corp Hgb Conc 33.9 g/dL (32-36); Mean Corpuscular Hgb 27.8 pg (27.0-32.0); Mean Corpuscular Volume 82.2 fL (81-99); Mean Platelet Vol. 11.1 fl (6.2-12.0); Monocyte# 0.52 X10^3/uL; Monocyte% 6.7 % (0-10); NRBC Flagged by Analyzer 0 % (0-5); Neutrophil # 4.84 X10^3/uL (2.7-7.7); Neutrophil % 62.3 % (47-70); Platelet Count 302 K/mm3 (150-450); RBC Distribution Width CV 14.6 % (11.6-14.6); RBC Distribution Width SD 42.5 fl (35.1-43.9); Red Blood Count 4.67 M/mm3 (4.2-5.4); White Blood Count 7.8 K/mm3 (4.4-11.0)
[2023-12-16 17:46] LABS: ALB/GLOB Ratio 1.1 RATIO (0.9-2.4); AST(SGOT) 19 U/L (15-37); Alanine Aminotransfer ALT/SGPT 35 U/L (13-56); Albumin, Serum 3.8 g/dL (3.2-5.0); Alkaline Phosphatase 97 U/L (45-117); Anion Gap 5 (5-15); BUN 13 mg/dL (7-18); BUN/Creat Ratio 17.5 RATIO (10-20); Calcium,Total 9.3 mg/dL (8.5-10.1); Chloride 106 mmol/L (98-107); Creatinine, Serum 0.74 mg/dL (0.55-1.02); EST Glomerular Filtration Rate 88 mL/min (>60); Est Glom Filt Rate - Afr Amer 106 mL/min (>60); Globulin 3.4 g/dL (2.2-4.2); Glucose 151 mg/dL (74-106); Potassium 3.7 mmol/L (3.5-5.1); Protein, Total 7.2 g/dL (6.4-8.2); Sodium Level 140 mmol/L (136-145)
== END | disposition home or self-care (01) ==
LOC: MTLAB 16:04
PROVIDERS: PCP Family Medicine; Referring Provider Internal Medicine Rheumatology; Visit Provider Internal Medicine Rheumatology
DX: M06.4 Inflammatory polyarthropathy (principal); Z79.899 Other long term (current) drug therapy; M79.7 Fibromyalgia
CPT/HCPCS: 36415; 80053; 85025

== ENCOUNTER → 2024-03-09 | Outpatient (CLI) | payer OTHER, MEDICARE, SELFPAY ==
[2024-03-09 15:31] LABS: Absolute Lymphocyte Count 1.69 X10^3/uL (0.83-4.51); Absolute Neutrophil Count 3.7 X10^3/uL (2.0-7.7); Basophil# 0.05 X10^3/uL; Basophil% 0.9 % (0-1); Eosinophil# 0.13 X10^3/uL; Eosinophils% 2.2 % (0-5); Hemoglobin 12.6 g/dL (12.0-15.0); Lymphocyte # 1.69 X10^3/ul (0.83-4.51); Lymphocyte % 28.7 % (19-41); Mean Corp Hgb Conc 33.2 g/dL (32-36); Mean Corpuscular Hgb 28.1 pg (27.0-32.0); Mean Corpuscular Volume 84.6 fL (81-99); Mean Platelet Vol. 11.6 fl (6.2-12.0); Monocyte# 0.35 X10^3/uL; NRBC Flagged by Analyzer 0 % (0-5); Neutrophil # 3.65 X10^3/uL (2.7-7.7); Platelet Count 269 K/mm3 (150-450); RBC Distribution Width CV 13.3 % (11.6-14.6); RBC Distribution Width SD 40.9 fl (35.1-43.9); Red Blood Count 4.49 M/mm3 (4.2-5.4); White Blood Count 5.9 K/mm3 (4.4-11.0)
[2024-03-09 16:30] LABS: AST(SGOT) 13 U/L (15-37); Alanine Aminotransfer ALT/SGPT 29 U/L (13-56); Albumin, Serum 3.4 g/dL (3.2-5.0); Alkaline Phosphatase 80 U/L (45-117); Anion Gap 8 (5-15); BUN 10 mg/dL (7-18); BUN/Creat Ratio 13.6 RATIO (10-20); Calcium,Total 9.3 mg/dL (8.5-10.1); Chloride 105 mmol/L (98-107); Creatinine, Serum 0.74 mg/dL (0.55-1.02); EST Glomerular Filtration Rate 88 mL/min (>60); Est Glom Filt Rate - Afr Amer 107 mL/min (>60); Globulin 3.3 g/dL (2.2-4.2); Glucose 209 mg/dL (74-106); Potassium 4.2 mmol/L (3.5-5.1); Protein, Total 6.7 g/dL (6.4-8.2); Sodium Level 138 mmol/L (136-145)
== END | disposition home or self-care (01) ==
PROVIDERS: PCP Family Medicine; Referring Provider Internal Medicine Rheumatology; Visit Provider Internal Medicine Rheumatology
DX: M06.4 Inflammatory polyarthropathy (principal); M79.7 Fibromyalgia; Z79.899 Other long term (current) drug therapy
CPT/HCPCS: 36415; 80053; 85025

== ENCOUNTER → 2024-06-02 | Outpatient (CLI) | payer OTHER, MEDICARE, SELFPAY ==
[2024-06-02 15:26] LABS: Absolute Lymphocyte Count 2.11 X10^3/uL (0.83-4.51); Absolute Neutrophil Count 6.6 X10^3/uL (2.0-7.7); Basophil# 0.09 X10^3/uL; Basophil% 0.9 % (0-1); Eosinophil# 0.16 X10^3/uL; Eosinophils% 1.7 % (0-5); Hematocrit 41.7 % (37-47); Hemoglobin 13.3 g/dL (12.0-15.0); Lymphocyte # 2.11 X10^3/ul (0.83-4.51); Lymphocyte % 22.1 % (19-41); Mean Corp Hgb Conc 31.9 g/dL (32-36); Mean Corpuscular Hgb 27.6 pg (27.0-32.0); Mean Corpuscular Volume 86.5 fL (81-99); Mean Platelet Vol. 11.9 fl (6.2-12.0); Monocyte# 0.52 X10^3/uL; Monocyte% 5.4 % (0-10); NRBC Flagged by Analyzer 0 % (0-5); Neutrophil # 6.62 X10^3/uL (2.7-7.7); Neutrophil % 69.3 % (47-70); Platelet Count 338 K/mm3 (150-450); RBC Distribution Width SD 42.8 fl (35.1-43.9); Red Blood Count 4.82 M/mm3 (4.2-5.4); White Blood Count 9.6 K/mm3 (4.4-11.0)
[2024-06-02 15:55] LABS: ALB/GLOB Ratio 1.1 RATIO (0.9-2.4); AST(SGOT) 21 U/L (15-37); Alanine Aminotransfer ALT/SGPT 33 U/L (13-56); Alkaline Phosphatase 103 U/L (45-117); Anion Gap 9 (5-15); BUN 10 mg/dL (7-18); BUN/Creat Ratio 11.5 RATIO (10-20); Calcium,Total 9.8 mg/dL (8.5-10.1); Chloride 104 mmol/L (98-107); Creatinine, Serum 0.87 mg/dL (0.55-1.02); EST Glomerular Filtration Rate 73 mL/min (>60); Est Glom Filt Rate - Afr Amer 89 mL/min (>60); Globulin 3.5 g/dL (2.2-4.2); Glucose 176 mg/dL (74-106); Potassium 4.2 mmol/L (3.5-5.1); Protein, Total 7.5 g/dL (6.4-8.2); Sodium Level 138 mmol/L (136-145)
== END | disposition home or self-care (01) ==
LOC: MTLAB 11:16
PROVIDERS: PCP Family Medicine; Referring Provider Internal Medicine Rheumatology; Visit Provider Internal Medicine Rheumatology
DX: M06.4 Inflammatory polyarthropathy (principal); Z79.899 Other long term (current) drug therapy; M79.7 Fibromyalgia
CPT/HCPCS: 36415; 80053; 85025

== ENCOUNTER → 2024-10-01 | Outpatient (CLI) | payer OTHER, MEDICARE, SELFPAY ==
[2024-10-01 17:44] LABS: Absolute Lymphocyte Count 2.78 X10^3/uL (0.83-4.51); Absolute Neutrophil Count 5.8 X10^3/uL (2.0-7.7); Basophil# 0.11 X10^3/uL; Basophil% 1.1 % (0-1); Eosinophil# 0.26 X10^3/uL; Eosinophils% 2.7 % (0-5); Hematocrit 41.1 % (37-47); Hemoglobin 13.4 g/dL (12.0-15.0); Lymphocyte # 2.78 X10^3/ul (0.83-4.51); Mean Corp Hgb Conc 32.6 g/dL (32-36); Mean Corpuscular Hgb 28.2 pg (27.0-32.0); Mean Corpuscular Volume 86.3 fL (81-99); Mean Platelet Vol. 11.1 fl (6.2-12.0); Monocyte# 0.63 X10^3/uL; Monocyte% 6.6 % (0-10); NRBC Flagged by Analyzer 0 % (0-5); Neutrophil # 5.78 X10^3/uL (2.7-7.7); Neutrophil % 60.2 % (47-70); Platelet Count 261 K/mm3 (150-450); RBC Distribution Width CV 14.2 % (11.6-14.6); RBC Distribution Width SD 44.6 fl (35.1-43.9); Red Blood Count 4.76 M/mm3 (4.2-5.4); White Blood Count 9.6 K/mm3 (4.4-11.0)
[2024-10-01 18:00] LABS: ALB/GLOB Ratio 1.1 RATIO (0.9-2.4); AST(SGOT) 14 U/L (15-37); Alanine Aminotransfer ALT/SGPT 40 U/L (13-56); Albumin, Serum 3.8 g/dL (3.2-5.0); Alkaline Phosphatase 91 U/L (45-117); Anion Gap 6 (5-15); BUN 15 mg/dL (7-18); BUN/Creat Ratio 16.4 RATIO (10-20); Calcium,Total 9.5 mg/dL (8.5-10.1); Chloride 104 mmol/L (98-107); Creatinine, Serum 0.92 mg/dL (0.55-1.02); EST Glomerular Filtration Rate 69 mL/min (>60); Est Glom Filt Rate - Afr Amer 83 mL/min (>60); Globulin 3.6 g/dL (2.2-4.2); Glucose 128 mg/dL (74-106); Potassium 4.2 mmol/L (3.5-5.1); Protein, Total 7.4 g/dL (6.4-8.2); Sodium Level 139 mmol/L (136-145)
== END | disposition home or self-care (01) ==
LOC: MTLAB 15:51
PROVIDERS: PCP Family Medicine; Referring Provider Internal Medicine Rheumatology; Visit Provider Internal Medicine Rheumatology
DX: M06.4 Inflammatory polyarthropathy (principal); Z79.899 Other long term (current) drug therapy; M79.7 Fibromyalgia
CPT/HCPCS: 36415; 80053; 85025

== ENCOUNTER → 2025-03-18 | Outpatient (CLI) | payer OTHER, MEDICARE, SELFPAY ==
--- NOTE | 2025-03-18 09:20 | RAD_ITS ---
PROCEDURE: KNEE 4 OR MORE VIEWS 03/18/2025 REASON FOR EXAM: BILATERAL KNEE PAIN TECHNIQUE: KNEE 4 OR MORE VIEWS COMPARISON: No FINDINGS: Inferior patellar enthesophytes. No significant osteoarthritis. No acute bone or soft tissue pathology. RAD/Knee 4 or More Views IMPRESSION: Inferior patellar enthesophytes. No acute findings Reading Location: [place] [id number]
--- NOTE | 2025-03-18 09:22 | RAD_ITS ---
PROCEDURE: KNEE 4 OR MORE VIEWS 03/18/2025 REASON FOR EXAM: B/L KNEE PAIN TECHNIQUE: Right knee 4 OR MORE VIEWS COMPARISON: No FINDINGS: Patellar enthesophytes. Soft tissue ossification, medial to the proximal tibia, possibly remote ligamentous injury. Minimal osteoarthritic changes with small osteophytes and relatively preserved joint spaces. No acute bone or soft tissue pathology. RAD/Knee 4 or More Views IMPRESSION: Very mild right knee osteoarthritis. Reading [facility]
[2025-03-18 12:39] LABS: Hematocrit 36.7 % (37-47); Hemoglobin 12.3 g/dL (12.0-15.0); Immature Granulocytes Count 0.090 X10^3/uL (0.0-0.0); Mean Corp Hgb Conc 33.5 g/dL (32-36); Mean Corpuscular Volume 84.4 fL (81-99); Mean Platelet Vol. 12.1 fl (6.2-12.0); NRBC Flagged by Analyzer 0 % (0-5); Platelet Count 303 K/mm3 (150-450); RBC Distribution Width CV 13.9 % (11.6-14.6); RBC Distribution Width SD 42.5 fl (35.1-43.9); Red Blood Count 4.35 M/mm3 (4.2-5.4); White Blood Count 10.6 K/mm3 (4.4-11.0)
[2025-03-18 12:54] LABS: AST(SGOT) 23 U/L (<=31); Alanine Aminotransfer ALT/SGPT 28 U/L (<=34); Albumin, Serum 4.2 g/dL (3.5-5.0); Alkaline Phosphatase 97 U/L (35-104); Anion Gap 14 (5-15); BUN 13 mg/dL (4-19); BUN/Creat Ratio 17.7 RATIO (10-20); Calcium,Total 9.6 mg/dL (7.6-11.0); Carbon Dioxide 24.5 mmol/L (21.0-32.0); Chloride 102 mmol/L (98-108); Globulin 2.8 g/dL (2.2-4.2); Glucose 174 mg/dL (70-99); Potassium 4.2 mmol/L (3.3-5.1)
== END | disposition home or self-care (01) ==
PROVIDERS: PCP Family Medicine; Referring Provider Internal Medicine Rheumatology; Visit Provider Internal Medicine Rheumatology
DX: M06.4 Inflammatory polyarthropathy (principal); Z79.899 Other long term (current) drug therapy; M79.7 Fibromyalgia; M47.897 Other spondylosis, lumbosacral region; M17.0 Bilateral primary osteoarthritis of knee; M25.561 Pain in right knee; M25.562 Pain in left knee
CPT/HCPCS: 36415; 73564; 80053; 85025

== ENCOUNTER 2025-04-20 10:52 | Outpatient (CLI) | payer OTHER, MEDICARE, SELFPAY ==
[2025-04-20 12:51] LABS: Barbiturate Urine NEGATIVE (< 200 ng/mL); Benzodiazepine Urine NEGATIVE (< 200 ng/mL); PCP Urine NEGATIVE (< 25 ng/mL); THC Urine NEGATIVE (< 50 ng/mL)
== END 2025-04-20 23:59 | disposition home or self-care (01) ==
LOC: LAB 10:54
PROVIDERS: PCP Family Medicine; Referring Provider Anesthesiology Pain Medicine; Visit Provider Anesthesiology Pain Medicine
DX: Z00.00 Encounter for general adult medical examination without abnormal findings (principal)
CPT/HCPCS: 80307

== ENCOUNTER 2025-05-25 10:16 | Emergency (ER) | payer OTHER, MEDICARE, SELFPAY ==
--- OUTSIDE RECORDS SUMMARY | 2025-05-21 09:56 | XMS RPT_ITS ---
Author Name Auto Generated Organization [facility] Care Team Prov[facility] Name Role Phone JOLLY HILL Attending Unavailable SAMEER MATT Primary Care Unavailable JOLLY HILL Attending Unavailable SAMEER MATT Primary Care Unavailable SAMEER MATT Primary Care Unavailable SAMEER MATT Primary Care Unavailable KACIE GUEVARA Attending Unavailable SAMEER MATT Primary Care Unavailable SAMEER MATT Referring Unavailable SAMEER MATT Primary Care Unavailable SAMEER MATT Attending Unavailable SAMEER MATT Primary Care Unavailable KACIE GUEVARA Referring Unavailable SAMEER MATT Primary Care Unavailable SAMEER MATT Primary Care Unavailable CAROL LANGSTON Attending Unavailable KACIE GUEVARA Referring Unavailable SAMEER MATT Primary Care Unavailable SAMEER MATT Primary Care Unavailable LISSETTE VERA Attending Unavailable LISSETTE VERA Admitting Unavailable SAMEER MATT Primary Care Unavailable LISSETTE VERA Referring Unavailable LISSETTE VERA Attending Unavailable SAMEER MATT Primary Care Unavailable PROBLEMS DATE TYPE CONDITION / CODE ATTENDING STATUS [facility] 5 Active Obstructive sleep apnea syndrome / G47.33(ICD-10) SAMEER MATT Active [facility] 3 Active Type 2 diabetes mellitus with diabetic neuropathy, unspecified whether terminal clerk insulin use (HCC) / E11.40(ICD-10) SAMEER MATT Active [facility] 1 Active BMI 50.0-59.9, adult (HCC) / Z68.43(ICD-10) SAMEER MATT Active [facility] 5 Active Dysuria / R30.0(ICD-10) SAMEER MATT Lenny Active [facility] 5 Active Anxiety with depression / F41.8(ICD-10) SAMEER MATT [facility] 5 Active Hot flashes / R23.2(ICD-10) SAMEER MATT Active [facility] 5 Active Type 2 diabetes mellitus without complication, without long-term current use of insulin (HCC) / E11.9(ICD-10) NA Active [facility] 5 Active Burning with urination / R30.0(ICD-10) CAROL LANGSTON [facility] 5 Active Vaginal itching / N89.8(ICD-10) CAROL LANGSTON [facility] 5 Admitting diagnosis Follow-up / UNK(Unknown) LISSETTE VERA [facility] 5 Admitting diagnosis Pain in right foot / M79.671(ICD-10) LISSETTE VERA Active [facility] 5 Active Pure hypercholesterolemia / E78.00(ICD-10) NA [facility] 5 Active Upper respiratory tract infection, unspecified type / J06.9(ICD-10) JOLLY HILL [facility] 5 Active Type 2 diabetes mellitus without complication, with long-term current use of insulin (HCC) / E11.9(ICD-10) JOLLY HILL [facility] 5 Active Type 2 diabetes mellitus without complication, with long-term current use of insulin (HCC) / Z79.4(ICD-10) JOLLY HILL [facility] 0 Active Essential hypertension / I10(ICD-10) KACIE GUEVARA [facility] 4 Active Cutaneous candidiasis / B37.2(ICD-10) ESTEE KACIE [facility] 4 Active Medicare annual wellness visit, subsequent / Z00.00(ICD-10) KACIE GUEVARA Active [facility] 4 Active Encounter for screening mammogram for malignant neoplasm of breast / Z12.31(ICD-10) NA Active [facility] PROCEDURES No Procedure Records Found RESULTS PROGRESS Observed: 05/21/2025 12:36 PM Status: COMPLETED Source: [facility] HNO ID: [id number] Author: SAMEER MATT MD Service: ? Author Type: Physician Type: Progress Notes Filed: 05/21/2025 12:38 Note Text: The patient is a 50-year-old female with type 2 diabetes mellitus, presenting for evaluation of persistent vulvovaginal itching and burning concerning for recurrent candidal infection. HPI Recurrent Yeast Infections: - Initial symptoms began on 04/15, prompting an urgent care visit. - Urgent care prescribed a 3-day Monistat treatment, which was ineffective. - Women's clinic recommended a 7-day Monistat treatment, which provided temporary relief but symptoms recurred. - Urine culture from 04/15 was negative; vaginal swab was positive for Fabio, negative for bacterial vaginosis. - Urinalysis showed trace leukocytes and significant glucosuria. - Saravanan is currently experiencing pruritus and discomfort; denies hematuria, back pain, or vaginal discharge. - Saravanan believes Jardiance may be contributing to recurrent infections. Hot Flashes: - Persistent hot flashes since hysterectomy at age 34, with oophorectomy performed at the same time. - Hot flashes have never ceased; previously tried estrogen therapy with no relief. - Saravanan experiences diaphoresis and discomfort during episodes, particularly when in pain or unwell. - Recent episode of severe sweating and discomfort with a recorded temperature of 94.9?F. Type 2 Diabetes Mellitus: - Blood glucose levels range from 120-150 mg/dL. - Recent A1c test performed; awaiting results. - Saravanan is currently taking Jardiance and glimepiride. - Previous trial of GLP-1 receptor agonist caused gastrointestinal discomfort. Depression: - Managed with Wellbutrin. Sleep Apnea: - Saravanan is not currently using CPAP therapy. MEDICATIONS: Current Outpatient Medications Medication Sig pregabalin (LYRICA) 150 mg capsule Take 1 capsule by mouth two times a day for 30 days. linaGLIPtin (TRADJENTA) 5 mg tab Take 1 tablet by mouth once daily. DULoxetine (CYMBALTA) 60 mg capsule Take 1 capsule by mouth once daily. losartan (COZAAR) 50 mg tablet Take 1 tablet by mouth once daily. metoprolol succinate ER (TOPROL XL) 50 mg 24 hr tablet Take 1 tablet by mouth once daily. metFORMIN (GLUCOPHAGE) 1,000 mg tablet Take 1 tablet by mouth two times a day with meals. tiZANidine HCl (ZANAFLEX) 2 mg capsule Take 2 mg by mouth three times a day as needed for muscle spasm. folic acid 1 mg tablet Take 2 mg by mouth once daily. methotrexate 2.5 mg tablet take 6 tablets by mouth ONCE WEEKLY hydrOXYchloroQUINE (PLAQUENIL) 200 mg tablet Take 200 mg by mouth twice daily. buprenorphine (BELBUCA) [address] 150 mcg between cheek and gum q 12 HR. traMADol (ULTRAM) 50 mg tablet Take 50 mg by mouth every 8 hours as needed. buPROPion (WELLBUTRIN) 75 mg tablet Take 1 tablet by mouth two times a day. glimepiride (AMARYL) 2 mg tablet Take 1 tablet by mouth daily with breakfast. terconazole (TERAZOL 7) 0.4 % vaginal cream Use 1 applicator vaginally daily at bedtime for 7 days. promethazine-PHENYLephrine 6.25-5 mg/5 mL syrup Take 5 mL by mouth four times a day as needed (FOR CONGESTION AND POST NASAL DRIP; MAY CAUSE SEDATION ). meclizine (ANTIVERT) 25 mg tab Take 1 tablet by mouth three times a day as needed. Lancets Test blood sugar(s) 2 times daily. Dx: Type 2 DM - Uncontrolled E11.65 Insulin: No blood sugar diagnostic (BLOOD GLUCOSE TEST) test strip Test blood sugar(s) 2 times daily. Dx: Type 2 DM - Controlled E11.9 Insulin: No albuterol HFA (PROVENTIL HFA, VENTOLIN HFA) 90 mcg/actuation inhaler Inhale 2 Puffs as instructed every 4 hours as needed for wheezing/shortness of breath. ondansetron orally disintegrating (ZOFRAN ODT) 8 mg disintegrating tablet Take 1 tablet by mouth every 8 hours as needed for nausea/vomiting. blood sugar diagnostic (BLOOD GLUCOSE TEST) test strip Test blood sugar(s) 1 times daily. Dx: Type 2 DM - Uncontrolled E11.65 Insulin: No Lancets lancets Test blood sugar(s) 1 times daily. Dx: Type 2 DM - Uncontrolled E11.65 Insulin: No CPAP Autopap 11-20 cm H2O, Heat Humidity, suitable mask, [employer] supplies, opt Chinstrap, G47.33. EMGALITY PEN 120 mg/mL pnij INJECT 120MG/ML PEN TWICE FOR THE 1ST MONTH AND ONCE A MONTH THEREAFTER blood sugar diagnostic (ONETOUCH VERIO) test strip Test blood sugar(s) 2 times daily. Dx: 250.02. Insulin: No No current facility-administered medications for this visit. ALLERGIES: ALLERGIES Allergen Reactions Codeine Ozempic [Semaglutid* Vomiting Trulicity [Dulaglut* Vomiting Vicodin [Hydrocodon* Vomiting PAST MEDICAL HISTORY Diagnosis Date Adjustment disorder with depressed mood Allergic rhinitis, cause unspecified Benign paroxysmal positional vertigo Chronic cholecystitis Diabetes (HCC) Dysmenorrhea Fibromyalgia pain meds per Dr. Batista Gestational diabetes (HCC) Hormone replacement therapy (HRT) given premarin Hx of hysterectomy 09/2009 hx of low vitamin D 04/2010 persistently low 04/2018 19 neg celiac menopause s/p HT 05/15/201801/2018 elevated FSH 39 07/2018 nl DXA PMH - PAST MEDICAL HISTORY OF abnormal pap colp/ LEEP before 2001 [place], [place] Sleep apnea 05/2013 severe on sleep study not on tx Urinary tract infection, site not specified Takes Macrodantin postcoidal Weight gain PAST SURGICAL HISTORY Procedure Laterality Date COLONOSCOPY 07/2018 said benign polyp ?HP CYSTOSCOPY, W/INSERTION URETHRAL STENT 09/02/09 left ureteral stent LAPS SURG CHOLECYSTECTOMY W/CHOLANGIOGRAPHY 04/08/08 LEEP PROCEDURE (PRINTED CIRCUIT LAYOUT TAPER DEPT)_*FL 2001 abnormal pap PAST SURGICAL HISTORY OF 2003 anofistula repair PAST SURGICAL HISTORY OF right foot TOTAL ABDOMINAL HYSTERECT W/WO RMVL TUBE OVARY 09/26/2009 Hysterectomy, [place] FAMILY HISTORY Problem Relation Age of Onset other (Healthy) Mother Diabetes Father had a stroke or [place]. No Known Problems Brother Cancer Maternal Grandmother lung first then bloodstream Cancer Maternal Grandfather lung Heart Paternal Grandmother Heart Paternal Grandfather other (healthy) Daughter other (healthy) Son SOCIAL HISTORY[1] Reviewed current medications, allergies, past medical history, surgical history, family history and social history today. REVIEW OF SYSTEMS Constitutional: (+) diaphoresis, (+) insomnia, (-) fever, (-) chills Genitourinary: (+) urinary frequency, (+) dysuria, (+) vulvar pruritus, (-) hematuria, (-) vaginal discharge, (-) pelvic pain Skin: (+) foot corn Endocrine: (+) hot flashes LAB REVIEWED: (Today) Urinalysis: - Glucose: Positive - Leukocyte: Trace - Protein: Trace - Appearance: Clear (04/15/2025) - Urine culture: Negative - Vaginal swab: Positive for Fabio species; Negative for bacterial vaginosis - Urinalysis: - White blood cells: Trace - Glucose: Elevated VITALS: BP 122/70 Pulse 80 Wt 133.4 kg (294 lb) LMP 09/18/2009 SpO2 96% BMI 52.08 kg/m? Last 4 Encounter Wt Readings: Date: Wt: 05/21/2025 133.4 kg (294 lb) 04/15/2025 132.2 kg (291 lb 7.2 oz) 09/21/2024 134.7 kg (297 lb) 09/20/2024 131.2 kg (289 lb 3.9 oz) PHYSICAL EXAMINATION: General: Alert, well-developed, no acute distress Neck: No JVD. No carotid bruit Lungs: Respirations unlabored, clear to auscultation, no wheezes, rales or rhonchi, symmetric air entry Heart: Regular rate and regular rhythm, S1 and S2 normal, no murmur, no rub or gallop Abdomen: Soft, non-tender Extremities: No edema Pulses: 2+ symmetric radial pulse No cva tenderness. ASSESSMENT AND PLAN 1. Dysuria (R30.0) - Recurrent vulvovaginal candidiasis; prior 3-day and 7-day Monistat regimens ineffective. - Reviewed urgent care notes from 04/15/25: negative urine culture, positive fabio on vaginal swab, negative for bacterial vaginosis, UA showed trace WBCs and significant glucosuria. - UA today: glucose, trace leukocyte, minimal protein, otherwise clear. - Hold Jardiance due to potential contribution to recurrent yeast infections via glucosuria. - Start Terazol 7 (terconazole) vaginal cream. - Urine sent for culture. - Educated on the relationship between SGLT2 inhibitors and increased risk of genital mycotic infections. 2. Anxiety with depression (F41.8) - Continue Wellbutrin; refilled. - Discussed that Wellbutrin may contribute to sweating. 3. Essential hypertension (I10) - stable. Continue meds. 4. Obstructive sleep apnea syndrome (G47.33) - Not using CPAP. - Reviewed risks of untreated MOE, including hypertension, stroke, and atrial fibrillation. 5. Type 2 diabetes mellitus with diabetic neuropathy, unspecified whether chcf insulin use (HCC) (E11.40) - Blood glucose readings 120-150 mg/dL; A1c pending. - Hold Jardiance. - Continue glimepiride; refilled. - Follow-up appointment on May 25 to review A1c and discuss further diabetes management. 6. BMI 50.0-59.9, adult (HCC) (Z68.43) - Referral to [facility] program. 7. Hot flashes (R23.2) - Persistent since hysterectomy with oophorectomy at age 34. - Advised follow-up with gynecology for further management options, including possible SSRIs or hormone therapy. (See patient after visit summary for additional instructions to patient) Sameer Matt MD Recording using [employer] software for draft documentation of the visit was discussed with the patient/authorized brewery representative; all questions welcomed and answered. Patient/authorized brewery representative agreed to proceed [1] Social History Tobacco Use Smoking status: Former Current packs/day: 0.00 Types: Cigarettes Quit date: 09/14/1998 Years since quittin.7 Smokeless tobacco: Never Substance Use Topics Alcohol use: No Drug use: No BACTERIA UR CULT Observed: 05/21/2025 10:52 AM Status: F Source: [facility] ORGANISM ID: 1 <10,000 CFU/ml Normal urogenital laurent Performed By: #### [id number] ### # [facility] CLIA [id number] [address] [place] [address] [place] OF [place] Observed: 05/21/2025 10:20 AM Status: COMPLETED Source: [facility] SARAVANAN POWELL ([id number]) 1975 F Date Time Provider Department 05/21/25 10:20 AM SAMEER MATT During your visit today, we recorded the following information about you: Pulse Blood pressure Weight 80/minute 122/70 133.4 kg Sameer Matt MD 05/21/2025 10:37 AM Signed We discussed your recurrent yeast infections and urinary symptoms: - You have been prescribed Terazol 7 (a prescription antifungal cream) to treat the yeast infection. This has been sent to [facility]. Please use it as directed. - We are holding off on Jardiance for now, as it may be contributing to your recurrent yeast infections by increasing glucose in your urine. - Your urine sample today showed trace glucose, leukocytes, and a small amount of protein. It has been sent for a culture to check for any infections. We will follow up with the results. - Continue taking your current medications, including Wellbutrin and Amaryl (glimepiride), as refilled today. We discussed your concerns about sweating and hot flashes: - Your symptoms may be related to hot flashes, which could be linked to your history of a hysterectomy and removal of your ovaries. I recommend following up with your electronic development technician to discuss treatment options, which may include medications or hormone therapy. - Additional labs can be ordered if needed after your electronic development technician visit. We discussed your weight management: - I have referred you to the [facility] program, an 18-month intensive lifestyle treatment program. This program includes a team-based approach with primary care, endocrinology, wellness, and psychology. It may involve medications or surgery if clinically appropriate. You will be contacted with more details. We discussed your diabetes management: - Your A1c test is pending, and we will review the results at your next appointment. - Please keep your appointment on May 25 to discuss your blood sugar management and next steps. Follow-Up: - Keep your appointment on May 25 to review your diabetes management and lab results. - Follow up with your electronic development technician to address ongoing hot flashes and sweating. - You will be contacted by the [facility] program for next steps. If your symptoms worsen or do not improve, please contact our office. Sameer Matt MD 05/21/2025 12:38 PM Signed The patient is a 50-year-old female with type 2 diabetes mellitus, presenting for evaluation of persistent vulvovaginal itching and burning concerning for recurrent candidal infection. HPI Recurrent Yeast Infections: - Initial symptoms began on 04/15, prompting an urgent care visit. - Urgent care prescribed a 3-day Monistat treatment, which was ineffective. - Women's clinic recommended a 7-day Monistat treatment, which provided temporary relief but symptoms recurred. - Urine culture from 04/15 was negative; vaginal swab was positive for Fabio, negative for bacterial vaginosis. - Urinalysis showed trace leukocytes and significant glucosuria. - Saravanan is currently experiencing pruritus and discomfort; denies hematuria, back pain, or vaginal discharge. - Saravanan believes Jardiance may be contributing to recurrent infections. Hot Flashes: - Persistent hot flashes since hysterectomy at age 34, with oophorectomy performed at the same time. - Hot flashes have never ceased; previously tried estrogen therapy with no relief. - Saravanan experiences diaphoresis and discomfort during episodes, particularly when in pain or unwell. - Recent episode of severe sweating and discomfort with a recorded temperature of 94.9?F. Type 2 Diabetes Mellitus: - Blood glucose levels range from 120-150 mg/dL. - Recent A1c test performed; awaiting results. - Saravanan is currently taking Jardiance and glimepiride. - Previous trial of GLP-1 receptor agonist caused gastrointestinal discomfort. Depression: - Managed with Wellbutrin. Sleep Apnea: - Saravanan is not currently using CPAP therapy. MEDICATIONS: Current Outpatient Medications Medication Sig pregabalin (LYRICA) 150 mg capsule Take 1 capsule by mouth two times a day for 30 days. linaGLIPtin (TRADJENTA) 5 mg tab Take 1 tablet by mouth once daily. DULoxetine (CYMBALTA) 60 mg capsule Take 1 capsule by mouth once daily. losartan (COZAAR) 50 mg tablet Take 1 tablet by mouth once daily. metoprolol succinate ER (TOPROL XL) 50 mg 24 hr tablet Take 1 tablet by mouth once daily. metFORMIN (GLUCOPHAGE) 1,000 mg tablet Take 1 tablet by mouth two times a day with meals. tiZANidine HCl (ZANAFLEX) 2 mg capsule Take 2 mg by mouth three times a day as needed for muscle spasm. folic acid 1 mg tablet Take 2 mg by mouth once daily. methotrexate 2.5 mg tablet take 6 tablets by mouth ONCE WEEKLY hydrOXYchloroQUINE (PLAQUENIL) 200 mg tablet Take 200 mg by mouth twice daily. buprenorphine (BELBUCA) [address] 150 mcg between cheek and gum q 12 HR. traMADol (ULTRAM) 50 mg tablet Take 50 mg by mouth every 8 hours as needed. buPROPion (WELLBUTRIN) 75 mg tablet Take 1 tablet by mouth two times a day. glimepiride (AMARYL) 2 mg tablet Take 1 tablet by mouth daily with breakfast. terconazole (TERAZOL 7) 0.4 % vaginal cream Use 1 applicator vaginally daily at bedtime for 7 days. promethazine-PHENYLephrine 6.25-5 mg/5 mL syrup Take 5 mL by mouth four times a day as needed (FOR CONGESTION AND POST NASAL DRIP; MAY CAUSE SEDATION ). meclizine (ANTIVERT) 25 mg tab Take 1 tablet by mouth three times a day as needed. Lancets Test blood sugar(s) 2 times daily. Dx: Type 2 DM - Uncontrolled E11.65 Insulin: No blood sugar diagnostic (BLOOD GLUCOSE TEST) test strip Test blood sugar(s) 2 times daily. Dx: Type 2 DM - Controlled E11.9 Insulin: No albuterol HFA (PROVENTIL HFA, VENTOLIN HFA) 90 mcg/actuation inhaler Inhale 2 Puffs as instructed every 4 hours as needed for wheezing/shortness of breath. ondansetron orally disintegrating (ZOFRAN ODT) 8 mg disintegrating tablet Take 1 tablet by mouth every 8 hours as needed for nausea/vomiting. blood sugar diagnostic (BLOOD GLUCOSE TEST) test strip Test blood sugar(s) 1 times daily. Dx: Type 2 DM - Uncontrolled E11.65 Insulin: No Lancets lancets Test blood sugar(s) 1 times daily. Dx: Type 2 DM - Uncontrolled E11.65 Insulin: No CPAP Autopap 11-20 cm H2O, Heat Humidity, suitable mask, [employer] supplies, opt Chinstrap, G47.33. EMGALITY PEN 120 mg/mL pnij INJECT 120MG/ML PEN TWICE FOR THE 1ST MONTH AND ONCE A MONTH THEREAFTER blood sugar diagnostic (ONETOUCH VERIO) test strip Test blood sugar(s) 2 times daily. Dx: 250.02. Insulin: No No current facility-administered medications for this visit. ALLERGIES: ALLERGIES Allergen Reactions Codeine Ozempic [Semaglutid* Vomiting Trulicity [Dulaglut* Vomiting Vicodin [Hydrocodon* Vomiting PAST MEDICAL HISTORY Diagnosis Date Adjustment disorder with depressed mood Allergic rhinitis, cause unspecified Benign paroxysmal positional vertigo Chronic cholecystitis Diabetes (HCC) Dysmenorrhea Fibromyalgia pain meds per Dr. Batista Gestational diabetes (HCC) Hormone replacement therapy (HRT) given premarin Hx of hysterectomy 09/2009 hx of low vitamin D 04/2010 persistently low 04/2018 19 neg celiac menopause s/p HT 05/15/201801/2018 elevated FSH 39 07/2018 nl DXA PMH - PAST MEDICAL HISTORY OF abnormal pap colp/ LEEP before 2001 [place] Sleep apnea 05/2013 severe on sleep study not on tx Urinary tract infection, site not specified Takes Macrodantin postcoidal Weight gain PAST SURGICAL HISTORY Procedure Laterality Date COLONOSCOPY 07/2018 said benign polyp ?HP CYSTOSCOPY, W/INSERTION URETHRAL STENT 09/02/09 left ureteral stent LAPS SURG CHOLECYSTECTOMY W/CHOLANGIOGRAPHY 04/08/08 LEEP PROCEDURE (PRINTED CIRCUIT LAYOUT TAPER DEPT)_*FL 2001 abnormal pap PAST SURGICAL HISTORY OF 2003 anofistula repair PAST SURGICAL HISTORY OF right foot TOTAL ABDOMINAL HYSTERECT W/WO RMVL TUBE OVARY 09/26/2009 Hysterectomy, [place] FAMILY HISTORY Problem Relation Age of Onset other (Healthy) Mother Diabetes Father had a stroke or [place]. No Known Problems Brother Cancer Maternal Grandmother lung first then bloodstream Cancer Maternal Grandfather lung Heart Paternal Grandmother Heart Paternal Grandfather other (healthy) Daughter other (healthy) Son SOCIAL HISTORY[1] Reviewed current medications, allergies, past medical history, surgical history, family history and social history today. REVIEW OF SYSTEMS Constitutional: (+) diaphoresis, (+) insomnia, (-) fever, (-) chills Genitourinary: (+) urinary frequency, (+) dysuria, (+) vulvar pruritus, (-) hematuria, (-) vaginal discharge, (-) pelvic pain Skin: (+) foot corn Endocrine: (+) hot flashes LAB REVIEWED: (Today) Urinalysis: - Glucose: Positive - Leukocyte: Trace - Protein: Trace - Appearance: Clear (04/15/2025) - Urine culture: Negative - Vaginal swab: Positive for Fabio species; Negative for bacterial vaginosis - Urinalysis: - White blood cells: Trace - Glucose: Elevated VITALS: BP 122/70 Pulse 80 Wt 133.4 kg (294 lb) LMP 09/18/2009 SpO2 96% BMI 52.08 kg/m? Last 4 Encounter Wt Readings: Date: Wt: 05/21/2025 133.4 kg (294 lb) 04/15/2025 132.2 kg (291 lb 7.2 oz) 09/21/2024 134.7 kg (297 lb) 09/20/2024 131.2 kg (289 lb 3.9 oz) PHYSICAL EXAMINATION: General: Alert, well-developed, no acute distress Neck: No JVD. No carotid bruit Lungs: Respirations unlabored, clear to auscultation, no wheezes, rales or rhonchi, symmetric air entry Heart: Regular rate and regular rhythm, S1 and S2 normal, no murmur, no rub or gallop Abdomen: Soft, non-tender Extremities: No edema Pulses: 2+ symmetric radial pulse No cva tenderness. ASSESSMENT AND PLAN 1. Dysuria (R30.0) - Recurrent vulvovaginal candidiasis; prior 3-day and 7-day Monistat regimens ineffective. - Reviewed urgent care notes from 04/15/25: negative urine culture, positive fabio on vaginal swab, negative for bacterial vaginosis, UA showed trace WBCs and significant glucosuria. - UA today: glucose, trace leukocyte, minimal protein, otherwise clear. - Hold Jardiance due to potential contribution to recurrent yeast infections via glucosuria. - Start Terazol 7 (terconazole) vaginal cream. - Urine sent for culture. - Educated on the relationship between SGLT2 inhibitors and increased risk of genital mycotic infections. 2. Anxiety with depression (F41.8) - Continue Wellbutrin; refilled. - Discussed that Wellbutrin may contribute to sweating. 3. Essential hypertension (I10) - stable. Continue meds. 4. Obstructive sleep apnea syndrome (G47.33) - Not using CPAP. - Reviewed risks of untreated MOE, including hypertension, stroke, and atrial fibrillation. 5. Type 2 diabetes mellitus with diabetic neuropathy, unspecified whether terminal clerk insulin use (HCC) (E11.40) - Blood glucose readings 120-150 mg/dL; A1c pending. - Hold Jardiance. - Continue glimepiride; refilled. - Follow-up appointment on May 25 to review A1c and discuss further diabetes management. 6. BMI 50.0-59.9, adult ([facility]) (Z68.43) - Referral to [facility] program. 7. Hot flashes (R23.2) - Persistent since hysterectomy with oophorectomy at age 34. - Advised follow-up with gynecology for further management options, including possible SSRIs or hormone therapy. (See patient after visit summary for additional instructions to patient) Sameer Matt MD Recording using [employer] software for draft documentation of the visit was discussed with the patient/authorized brewery representative; all questions welcomed and answered. Patient/authorized brewery representative agreed to proceed [1] Social History Tobacco Use Smoking status: Former Current packs/day: 0.00 Types: Cigarettes Quit date: 09/14/1998 Years since quittin.7 Smokeless tobacco: Never Substance Use Topics Alcohol use: No Drug use: No Allergies As of Date: 05/21/2025 Noted Allergy Reaction CODEINE 10/12/2005 OZEMPIC (SEMAGLUTIDE) 05/18/2024 11 - Vomiting TRULICITY (DULAGLUTIDE) 05/18/2024 11 - Vomiting VICODIN (HYDROCODONE-ACETAMINOPHE*10/15/2005 11 - Vomiting Date Reviewed: 05/21/2025 Reviewed by: Maribell Peralta LPN - Fully Assessed Reason for Visit: UTI [116] Cmt: ? Also yeast infection Primary Visit Diagnosis:Dysuria [R30.0] Other Visit Diagnoses:Anxiety with depression [F41.8] Essential hypertension [I10] Obstructive sleep apnea syndrome [G47.33] Type 2 diabetes mellitus with diabetic neuropathy, unspecified whether terminal clerk insulin use (HCC) [E11.40] BMI 50.0-59.9, adult ([facility]) [Z68.43] Hot flashes [R23.2] Order(s):UA DIP, URINE (POC) [0091580] Order #: [id number]. #:[id number] buPROPion (WELLBUTRIN) 75 mg tabletTake 1 tablet by mouth two times a day.Disp: 180 tabletRfl: 3 glimepiride (AMARYL) 2 mg tabletTake 1 tablet by mouth daily with breakfast.Disp: 90 tabletRfl: 3 CONSULT TO ACTIVATE [facility]ITY CARE [5404067] Order #: [id number]: 1 FUTURE BACTERIAL CULTURE, URINE [SQURCUL] Order #: [id number] FUTURE CONSULT TO GYNECOLOGY [90] Order #: [id number]: 1 FUTURE terconazole (TERAZOL 7) 0.4 % vaginal creamUse 1 applicator vaginally daily at bedtime for 7 days.Disp: 45 gRfl: 0 BACTERIAL CULTURE, URINE [SQURCUL] Order #: [id number]. #:[id number] Prescriptions as of 05/21/2025 - buPROPion (WELLBUTRIN) 75 mg tablet Take 1 tablet by mouth two times a day. - glimepiride (AMARYL) 2 mg tablet Take 1 tablet by mouth daily with breakfast. - terconazole (TERAZOL 7) 0.4 % vaginal cream Use 1 applicator vaginally daily at bedtime for 7 days. - pregabalin (LYRICA) 150 mg capsule Take 1 capsule by mouth two times a day for 30 days. - linaGLIPtin (TRADJENTA) 5 mg tab Take 1 tablet by mouth once daily. - promethazine-PHENYLephrine 6.25-5 mg/5 mL syrup Take 5 mL by mouth four times a day as needed (FOR CONGESTION AND POST NASAL DRIP; MAY CAUSE SEDATION ). - DULoxetine (CYMBALTA) 60 mg capsule Take 1 capsule by mouth once daily. - meclizine (ANTIVERT) 25 mg tab Take 1 tablet by mouth three times a day as needed. - losartan (COZAAR) 50 mg tablet Take 1 tablet by mouth once daily. - metoprolol succinate ER (TOPROL XL) 50 mg 24 hr tablet Take 1 tablet by mouth once daily. - metFORMIN (GLUCOPHAGE) 1,000 mg tablet Take 1 tablet by mouth two times a day with meals. - Lancets Test blood sugar(s) 2 times daily. Dx: Type 2 DM - Uncontrolled E11.65 Insulin: No - blood sugar diagnostic (BLOOD GLUCOSE TEST) test strip Test blood sugar(s) 2 times daily. Dx: Type 2 DM - Controlled E11.9 Insulin: No - tiZANidine HCl (ZANAFLEX) 2 mg capsule Take 2 mg by mouth three times a day as needed for muscle spasm. - albuterol HFA (PROVENTIL HFA, VENTOLIN HFA) 90 mcg/actuation inhaler Inhale 2 Puffs as instructed every 4 hours as needed for wheezing/shortness of breath. - ondansetron orally disintegrating (ZOFRAN ODT) 8 mg disintegrating tablet Take 1 tablet by mouth every 8 hours as needed for nausea/vomiting. - folic acid 1 mg tablet Take 2 mg by mouth once daily. - methotrexate 2.5 mg tablet take 6 tablets by mouth ONCE WEEKLY - hydrOXYchloroQUINE (PLAQUENIL) 200 mg tablet Take 200 mg by mouth twice daily. - blood sugar diagnostic (BLOOD GLUCOSE TEST) test strip Test blood sugar(s) 1 times daily. Dx: Type 2 DM - Uncontrolled E11.65 Insulin: No - Lancets lancets Test blood sugar(s) 1 times daily. Dx: Type 2 DM - Uncontrolled E11.65 Insulin: No - CPAP Autopap 11-20 cm H2O, Heat Humidity, suitable mask, Lif[employer] supplies, opt Chinstrap, G47.33. - EMGALITY PEN 120 mg/mL pnij INJECT 120MG/ML PEN TWICE FOR THE 1ST MONTH AND ONCE A MONTH THEREAFTER - buprenorphine (BELBUCA) [address] 150 mcg between cheek and gum q 12 HR. - blood sugar diagnostic (ONETOUCH VERIO) test strip Test blood sugar(s) 2 times daily. Dx: 250.02. Insulin: No - traMADol (ULTRAM) 50 mg tablet Take 50 mg by mouth every 8 hours as needed. Problem List As Of Date 05/21/2025 Noted Resolved Migraine, unspecified, with intractable migrain*07/10/2006 05/15/2018 Dysmenorrhea [N94.6] 03/02/2008 09/14/2016 Left flank pain [R10.9] 08/31/2009 09/14/2016 Hydronephrosis [N13.30] 08/31/2009 09/14/2016 FB bladder/urethra [T19.1XXA, T19.0XXA] 09/13/2009 09/14/2016 Other and unspecified ovarian cyst [N83.209] 09/14/2009 05/15/2018 Endometriosis [N80.9] 11/29/2009 Restless Legs [G25.81] 12/27/2009 Numbness and tingling [R20.0, R20.2] 05/12/2010 09/14/2016 Fibromyalgia [M79.7] 10/17/2010 Obstructive sleep apnea syndrome [G47.33] 08/20/2013 Chronic pain [G89.29] 06/08/2014 Chronic back pain [M54.9, G89.29] 06/08/2014 09/14/2016 Type 2 diabetes mellitus without complication (*05/16/2015 05/11/2024 Low HDL (under 40) [E78.6] 01/02/2018 Obesity, Class III, BMI 40-49.9 (morbid obesity*01/16/2018 12/31/2023 Rosacea [L71.9] 02/04/2018 Post-hysterectomy menopause [E89.40, Z90.710] 02/04/2018 05/15/2018 Sweating profusely [R61] 02/04/2018 05/23/2020 Symptomatic menopausal or female climacteric st*05/15/2018 05/15/2018 Hx of hysterectomy [Z90.710] menopause age 43 with VMS s/p TH [N95.1] 05/15/2018 Hormone replacement therapy (HRT) [Z79.890] 05/15/2018 hx of low vitamin D [E55.9] Weight gain [R63.5] 12/31/2023 Screening for colon cancer [Z12.11] 07/10/2018 08/11/2018 Cervical radiculopathy [M54.12] 08/29/2018 Pain of left upper extremity [M79.602] 08/29/2018 05/23/2020 Muscle wasting and atrophy, not elsewhere class*09/03/2018 05/23/2020 Essential hypertension [I10] 05/23/2020 BMI 50.0-59.9, adult (HCC) [Z68.43] 10/25/2020 Rheumatoid arthritis (HCC) [M06.9] 11/19/2022 Type 2 diabetes mellitus with diabetic neuropat*12/19/2022 Other obesity not elsewhere classified [E66.89] 05/21/2025 05/21/2025 Other instructions from your clinician: We discussed your recurrent yeast infections and urinary symptoms: - You have been prescribed Terazol 7 (a prescription antifungal cream) to treat the yeast infection. This has been sent to [facility]. Please use it as directed. - We are holding off on Jardiance for now, as it may be contributing to your recurrent yeast infections by increasing glucose in your urine. - Your urine sample today showed trace glucose, leukocytes, and a small amount of protein. It has been sent for a culture to check for any infections. We will follow up with the results. - Continue taking your current medications, including Wellbutrin and Amaryl (glimepiride), as refilled today. We discussed your concerns about sweating and hot flashes: - Your symptoms may be related to hot flashes, which could be linked to your history of a hysterectomy and removal of your ovaries. I recommend following up with your electronic development technician to discuss treatment options, which may include medications or hormone therapy. - Additional labs can be ordered if needed after your electronic development technician visit. We discussed your weight management: - I have referred you to the [facility] program, an 18-month intensive lifestyle treatment program. This program includes a team-based approach with primary care, endocrinology, wellness, and psychology. It may involve medications or surgery if clinically appropriate. You will be contacted with more details. We discussed your diabetes management: - Your A1c test is pending, and we will review the results at your next appointment. - Please keep your appointment on May 25 to discuss your blood sugar management and next steps. Follow-Up: - Keep your appointment on May 25 to review your diabetes management and lab results. - Follow up with your electronic development technician to address ongoing hot flashes and sweating. - You will be contacted by the [facility] program for next steps. If your symptoms worsen or do not improve, please contact our office. Prescriptions ordered this encounter Disp Refills Start End BUPROPION HCL 75 MG TABLET 180 * 3 05/21/2025 05/21/2026 Route: PO Sig: Take 1 tablet by mouth two times a day. GLIMEPIRIDE 2 MG TABLET 90 t* 3 05/21/2025 06/20/2025 Route: PO Sig: Take 1 tablet by mouth daily with breakfast. TERCONAZOLE 0.4 % VAGINAL CREAM 45 g 0 05/21/2025 05/28/2025 Route: VAGINAL Sig: Use 1 applicator vaginally daily at bedtime for 7 days. Medications Discontinued During This Encounter Prescriptions - empagliflozin (JARDIANCE) 10 mg tablet (Discontinued) Take 1 tablet by mouth daily with breakfast. - buPROPion (WELLBUTRIN) 75 mg tablet (Discontinued) Take 1 tablet by mouth two times a day. - glimepiride (AMARYL) 2 mg tablet (Discontinued) Take 1 tablet by mouth daily with breakfast. Follow-up and Disposition History for Encounter Date Provider Department Center 05/21/2025 [id number]-USHGSAMEER MATT [facility] Encounter Status:Closed by SAMEER MATT on 05/21/25 DEPRECATED HGB A1C BLD Collected: 05/21 9:53 AM Status: F Source: [facility] Order Comment: Specimen Type : BLOOD SPECIMEN Ordering Facility: [facility] Address: [address] [place] [address] TYPE CODE TESTS RESULT OUT OF RANGE REFERENCE UNITS LAB 4548-4(LOINC) HbA1c MFr Bld 8.0 High 4.3-5.6 % Result Comment: Martiniqu[employer] guidelines indicate that patients with HgbA1c in the range 5.7-6.4% are at increased risk for development of diabetes, and intervention by lifestyle modification may be beneficial. HgbA1c greater or equal to 6.5% is considered diagnostic of diabetes. LAB 56386-5(LOINC) Est. average glucose Bld gHb Est-mCnc 183 mg/dL Result Comment: eAG: (Estima janak average glucose) is a calculated value from HgbA1c and is brewery representative of the average blood glucose level in the last 2-3 month period. Performed By: #### [id number] # ### [facility] CLIA [id number] [address] [place] [address] [place] [address] [place] PROGRESS Observed: 04/15/2025 6:18 PM Status: COMPLETED Source: [facility] HNO ID: [id number] Author: CAROL LANGSTON PA Service: ? Author Type: Physician [employer] Type: Progress Notes Filed: 04/15/2025 18:21 Note Text: [facility] Powell is a 50 year old female. Patient presents with: UTI: Itching, burning with urination, urgency, frequency x1 week HPI Dysuria and Pruritus: - Dysuria and pruritus at the onset of urination. - No discharge. - Denies fever, emesis, or back pain. - Reports pruritus localized to the vaginal and anal areas. - Currently taking Jardiance. Hand, Foot, and Mouth Disease Exposure: - grandSon has hand, foot, and mouth disease. - Noticed a lesion on her hand. Review of Systems Constitutional: (-) fever Gastrointestinal: (-) abdominal pain, (-) vomiting Genitourinary: (+) genital pruritus, (+) dysuria, (+) perineal pain, (-) vaginal discharge Musculoskeletal: (-) back pain Skin: (+) skin lesion Objective BP 131/71 Pulse 103 Temp 36.4 ?C (97.5 ?F) Resp 18 Wt 132.2 kg (291 lb 7.2 oz) LMP 09/18/2009 SpO2 99% BMI 51.63 kg/m? Physical Exam Vitals reviewed. Constitutional: General: She is not in acute distress. Appearance: Normal appearance. She is not toxic-appearing. HENT: Mouth/Throat: Mouth: Mucous membranes are moist. Cardiovascular: Rate and Rhythm: Normal rate and regular rhythm. Pulmonary: Effort: Pulmonary effort is normal. Breath sounds: Normal breath sounds. Abdominal: General: Abdomen is flat. Palpations: Abdomen is soft. Tenderness: There is no abdominal tenderness. There is no guarding or rebound. Skin: General: Skin is warm and dry. Neurological: Mental Status: She is alert. { 1. Burning with urination (R30.0) 2. Vaginal itching (N89.8) - Symptoms and exam findings more consistent with vulvovaginal candidiasis than UTI. - Urinalysis showed glucosuria (consistent with Jardiance use), minimal WBCs, no nitrites, and no hematuria. - Urine culture ordered to rule out UTI. - Vaginal swabs ordered. - POC glucose 172 - Start topical antifungal cream for external irritation. - Vagisil for suspected vaginal yeast infection. Interaction with plaquenil. Recording using [employer] software for draft documentation of the visit was discussed with the patient/authorized brewery representative; all questions welcomed and answered. Patient/authorized brewery representative agreed to proceed Differential Diagnoses - vaginitis is more likely for the following reason(s): suggested by MARY - uti is less likely for the following reason(s): laboratory studies not suggestive Disposition The patient was discharged. Procedures BACTERIA UR CULT Observed: 04/15/2025 6:00 PM Status: F Source: [facility] ORGANISM ID: 1 10,000 -<50,000 CFU/ml Normal urogenital laurent Performed By: #### [id number] ### # [facility] CLIA [id number] [address] [place] [address] [place] FABIO/TRICHOMONAS NAAT Collected: 6:00 PM Status: F Source: [facility] Order Comment: Specimen Type : SWAB Ordering Facility: [facility] Address: [address] [place] [address] TYPE CODE TESTS RESULT OUT OF RANGE REFERENCE UNITS LAB 38904-5(LOINC ) Fabio DNA Vag Ql JULITA+probe Detected Abnormal Not detected Result Comment: The Fabio species group target includes C. albicans, C. tropicalis, C. parapsilosis, and C. dubliniensis. LAB 97566-5(LOINC ) C glabrata RNA Vag Ql JULITA+probe Not detected Not detected LAB 59557-1(LOINC ) T vaginalis DNA Spec Ql JULITA+probe Not detected Not detected Performed By: #### BVAMP, CV TV #### [facility] CLIA [id number] [address] [place] [id number] [place] BACTERIAL VAGINOSIS NAAT Collected: 6:00 PM Status: F Source: [facility] Order Comment: Specimen Type : SWAB Ordering Facility: [facility] Address: [address] [place] [address] TYPE CODE TESTS RESULT OUT OF RANGE REFERENCE UNITS LAB 23522-6(LOINC) BV bacteria rRNA Vag Ql JULITA+probe Not detected Not detected Performed By: #### BVAMP, CV TV #### [facility] CLIA [id number] [address] [place], [place] [id number] [place] CNOV Observed: 04/15/2025 5:30 PM Status: COMPLETED Source: [facility] Office Visit (WOU[facility]) SARAVANAN POWELL ([id number]) 1975 F Date Time Provider Department 04/15/25 5:30 PM CAROL LANGSTON WOGERALDO During your visit today, we recorded the following information about you: Temperature Pulse Respiration Blood pressure 97.5 degrees 103/minute 18/minute 131/71 Weight 132.2 kg Carol Langston PA 04/15/2025 6:21 PM Signed [facility] Subjective Saravanan Poewll is a 50 year old female. Patient presents with: UTI: Itching, burning with urination, urgency, frequency x1 week HPI Dysuria and Pruritus: - Dysuria and pruritus at the onset of urination. - No discharge. - Denies fever, emesis, or back pain. - Reports pruritus localized to the vaginal and anal areas. - Currently taking Jardiance. Hand, Foot, and Mouth Disease Exposure: - grandSon has hand, foot, and mouth disease. - Noticed a lesion on her hand. Review of Systems Constitutional: (-) fever Gastrointestinal: (-) abdominal pain, (-) vomiting Genitourinary: (+) genital pruritus, (+) dysuria, (+) perineal pain, (-) vaginal discharge Musculoskeletal: (-) back pain Skin: (+) skin lesion Objective BP 131/71 Pulse 103 Temp 36.4 ?C (97.5 ?F) Resp 18 Wt 132.2 kg (291 lb 7.2 oz) LMP 09/18/2009 SpO2 99% BMI 51.63 kg/m? Physical Exam Vitals reviewed. Constitutional: General: She is not in acute distress. Appearance: Normal appearance. She is not toxic-appearing. HENT: Mouth/Throat: Mouth: Mucous membranes are moist. Cardiovascular: Rate and Rhythm: Normal rate and regular rhythm. Pulmonary: Effort: Pulmonary effort is normal. Breath sounds: Normal breath sounds. Abdominal: General: Abdomen is flat. Palpations: Abdomen is soft. Tenderness: There is no abdominal tenderness. There is no guarding or rebound. Skin: General: Skin is warm and dry. Neurological: Mental Status: She is alert. { 1. Burning with urination (R30.0) 2. Vaginal itching (N89.8) - Symptoms and exam findings more consistent with vulvovaginal candidiasis than UTI. - Urinalysis showed glucosuria (consistent with Jardiance use), minimal WBCs, no nitrites, and no hematuria. - Urine culture ordered to rule out UTI. - Vaginal swabs ordered. - POC glucose 172 - Start topical antifungal cream for external irritation. - Vagisil for suspected vaginal yeast infection. Interaction with plaquenil. Recording using [employer] software for draft documentation of the visit was discussed with the patient/authorized brewery representative; all questions welcomed and answered. Patient/authorized brewery representative agreed to proceed Differential Diagnoses - vaginitis is more likely for the following reason(s): suggested by HANDP - uti is less likely for the following reason(s): laboratory studies not suggestive Disposition The patient was discharged. Procedures Allergies As of Date: 04/15/2025 Noted Allergy Reaction CODEINE 10/12/2005 OZEMPIC (SEMAGLUTIDE) 05/18/2024 11 - Vomiting TRULICITY (DULAGLUTIDE) 05/18/2024 11 - Vomiting VICODIN (HYDROCODONE-ACETAMINOPHE*10/15/2005 11 - Vomiting Date Reviewed: 04/15/2025 Reviewed by: Isabel Garsia MA - Fully Assessed Reason for Visit: UTI [116] Cmt: Itching, burning with urination, urgency, frequency x1 week Primary Visit Diagnosis:Burning with urination [R30.0] Other Visit Diagnosis:Vaginal itching [N89.8] Order(s):UA DIP, URINE (POC) [9001368] Order #: [id number]. #:[id number] BACTERIAL CULTURE, URINE [SQURCUL] Order #: [id number]. #:[id number] FABIO/TRICHOMONAS NAAT [SQCVTV] Order #: [id number]. #:[id number] BACTERIAL VAGINOSIS NAAT [SQBVAMP] Order #: [id number]. #:[id number] GLUCOSE, BLOOD (POC) [3564722] Order #: [id number]. #:[id number] nystatin (MYCOSTATIN) creamApply to affected area two times a day for 7 days.Disp: 15 gRfl: 0 Miconazole Nitrate (MONISTAT 3) 200 mg/5 gram (4 %) creaUse 1 applicator vaginally once daily for 3 days.Disp: 25 gRfl: 0 Prescriptions as of 04/15/2025 - nystatin (MYCOSTATIN) cream Apply to affected area two times a day for 7 days. - Miconazole Nitrate (MONISTAT 3) 200 mg/5 gram (4 %) crea Use 1 applicator vaginally once daily for 3 days. - empagliflozin (JARDIANCE) 10 mg tablet Take 1 tablet by mouth daily with breakfast. - pregabalin (LYRICA) 150 mg capsule Take 1 capsule by mouth two times a day for 90 days. - linaGLIPtin (TRADJENTA) 5 mg tab Take 1 tablet by mouth once daily. - promethazine-PHENYLephrine 6.25-5 mg/5 mL syrup Take 5 mL by mouth four times a day as needed (FOR CONGESTION AND POST NASAL DRIP; MAY CAUSE SEDATION ). - DULoxetine (CYMBALTA) 60 mg capsule Take 1 capsule by mouth once daily. - meclizine (ANTIVERT) 25 mg tab Take 1 tablet by mouth three times a day as needed. - losartan (COZAAR) 50 mg tablet Take 1 tablet by mouth once daily. - metoprolol succinate ER (TOPROL XL) 50 mg 24 hr tablet Take 1 tablet by mouth once daily. - metFORMIN (GLUCOPHAGE) 1,000 mg tablet Take 1 tablet by mouth two times a day with meals. - Lancets Test blood sugar(s) 2 times daily. Dx: Type 2 DM - Uncontrolled E11.65 Insulin: No - blood sugar diagnostic (BLOOD GLUCOSE TEST) test strip Test blood sugar(s) 2 times daily. Dx: Type 2 DM - Controlled E11.9 Insulin: No - buPROPion (WELLBUTRIN) 75 mg tablet Take 1 tablet by mouth two times a day. - glimepiride (AMARYL) 2 mg tablet Take 1 tablet by mouth daily with breakfast. - tiZANidine HCl (ZANAFLEX) 2 mg capsule Take 2 mg by mouth three times a day as needed for muscle spasm. - albuterol HFA (PROVENTIL HFA, VENTOLIN HFA) 90 mcg/actuation inhaler Inhale 2 Puffs as instructed every 4 hours as needed for wheezing/shortness of breath. - ondansetron orally disintegrating (ZOFRAN ODT) 8 mg disintegrating tablet Take 1 tablet by mouth every 8 hours as needed for nausea/vomiting. - folic acid 1 mg tablet Take 2 mg by mouth once daily. - methotrexate 2.5 mg tablet take 6 tablets by mouth ONCE WEEKLY - hydrOXYchloroQUINE (PLAQUENIL) 200 mg tablet Take 200 mg by mouth twice daily. - blood sugar diagnostic (BLOOD GLUCOSE TEST) test strip Test blood sugar(s) 1 times daily. Dx: Type 2 DM - Uncontrolled E11.65 Insulin: No - Lancets lancets Test blood sugar(s) 1 times daily. Dx: Type 2 DM - Uncontrolled E11.65 Insulin: No - CPAP Autopap 11-20 cm H2O, Heat Humidity, suitable mask, [employer] supplies, opt Chinstrap, G47.33. - EMGALITY PEN 120 mg/mL pnij INJECT 120MG/ML PEN TWICE FOR THE 1ST MONTH AND ONCE A MONTH THEREAFTER - buprenorphine (BELBUCA) [address] 150 mcg between cheek and gum q 12 HR. - blood sugar diagnostic (ONETOUCH VERIO) test strip Test blood sugar(s) 2 times daily. Dx: 250.02. Insulin: No - traMADol (ULTRAM) 50 mg tablet Take 50 mg by mouth every 8 hours as needed. Problem List As Of Date 04/15/2025 Noted Resolved Migraine, unspecified, with intractable migrain*07/10/2006 05/15/2018 Dysmenorrhea [N94.6] 03/02/2008 09/14/2016 Left flank pain [R10.9] 08/31/2009 09/14/2016 Hydronephrosis [N13.30] 08/31/2009 09/14/2016 FB bladder/urethra [T19.1XXA, T19.0XXA] 09/13/2009 09/14/2016 Other and unspecified ovarian cyst [N83.209] 09/14/2009 05/15/2018 Endometriosis [N80.9] 11/29/2009 Restless Legs [G25.81] 12/27/2009 Numbness and tingling [R20.0, R20.2] 05/12/2010 09/14/2016 Fibromyalgia [M79.7] 10/17/2010 Obstructive sleep apnea syndrome [G47.33] 08/20/2013 Chronic pain [G89.29] 06/08/2014 Chronic back pain [M54.9, G89.29] 06/08/2014 09/14/2016 Type 2 diabetes mellitus without complication (*05/16/2015 05/11/2024 Low HDL (under 40) [E78.6] 01/02/2018 Obesity, Class III, BMI 40-49.9 (morbid obesity*01/16/2018 12/31/2023 Rosacea [L71.9] 02/04/2018 Post-hysterectomy menopause [E89.40, Z90.710] 02/04/2018 05/15/2018 Sweating profusely [R61] 02/04/2018 05/23/2020 Symptomatic menopausal or female climacteric st*05/15/2018 05/15/2018 Hx of hysterectomy [Z90.710] menopause age 43 with VMS s/p TH [N95.1] 05/15/2018 Hormone replacement therapy (HRT) [Z79.890] 05/15/2018 hx of low vitamin D [E55.9] Weight gain [R63.5] 12/31/2023 Screening for colon cancer [Z12.11] 07/10/2018 08/11/2018 Cervical radiculopathy [M54.12] 08/29/2018 Pain of left upper extremity [M79.602] 08/29/2018 05/23/2020 Muscle wasting and atrophy, not elsewhere class*09/03/2018 05/23/2020 Essential hypertension [I10] 05/23/2020 BMI 50.0-59.9, adult (HCC) [Z68.43] 10/25/2020 Rheumatoid arthritis (HCC) [M06.9] 11/19/2022 Type 2 diabetes mellitus with diabetic neuropat*12/19/2022 Prescriptions ordered this encounter Disp Refills Start End NYSTATIN 100,000 UNIT/GRAM TOPICAL C* 15 g 0 04/15/2025 04/22/2025 Route: TOP Sig: Apply to affected area two times a day for 7 days. MONISTAT 3 200 MG/5 GRAM (4 %) VAGIN* 25 g 0 04/15/2025 04/18/2025 Route: VAGINAL Sig: Use 1 applicator vaginally once daily for 3 days. Encounter Status:Closed by CAROL LANGSTON on 04/15/25 PROGRESS Observed: 03/22/2025 8:13 PM Status: COMPLETED Source: [facility] Established Patient Visit Lissette Vera DPM Patient Name: Saravanan Powell. . Date of : 1975, 50 y.o.. Gender: female. Subjective: Patient is a pleasant 50-year-old female who presents to clinic complaining of a painful callus to her right foot. Patient states that she has significant pain and discomfort with ambulation. No other pedal complaints at this time. Denies fevers, chills, nausea, vomiting, chest pain, shortness of breath, or any other constitutional symptoms. Past Medical History: Diagnosis Date Arthritis Chronic pain Diabetes mellitus (HCC) Fibromyalgia Hypertension Parsonage-Collins syndrome Plantar fasciitis Past Surgical History: Procedure Laterality Date CHOLECYSTECTOMY FOOT SURGERY Right HYSTERECTOMY KIDNEY SURGERY stones TUMOR EXCISION neck Physical Examination: BP (!) 142/93 (BP Location: Right arm, Patient Position: Sitting, BP Cuff Size: Adult) Pulse 78 Temp 98.2 degrees F (36.8 degrees C) (Oral) General Appearance: Alert, cooperative, no distress, appears stated age. Podiatric Exam Vascular: DP and PT pulses are palpable. Capillary refill time is less than 3 seconds to distal digits. Skin temperature is warm to warm from proximal tibial tuberosity to distal digit. Neurological: Gross sensation is intact. Protective sensation is intact. Dermatologic: Small porokeratotic lesions noted to the plantar right foot. No surrounding erythema, edema or any acute signs of infection. Interdigital spaces are clean dry and intact. Musculoskeletal: Tenderness to palpation to the porokeratotic lesions, plantar right foot. Ankle joint range of motion is intact. Muscle strength is 5/5 to dorsiflexors, plantar flexors, inverters and everters. Compartments soft and compressible. No calf pain Diagnoses: 1. Acquired plantar porokeratosis 2. Right foot pain Imaging: Right foot 3 views weightbearing radiographs were ordered on 02/22/2025 and I personally interpreted them as follows: A plantar calcaneal enthesophyte is noted. No cystic or osseous lesions noted. Joint spaces are within normal limits with exception of narrowing at the first metatarsophalangeal joint. No gross deformity noted Assessment/Plan: Patient was seen and evaluated. Discussed all clinical findings I previously ordered, interpreted, and discussed right foot radiographic findings with patient as noted above. Patient has small plantar parakeratotic lesions. Using a 4 mm ring curette, the nucleated core was removed. Patient expressed pain relief. Discussed possible treating them with cantharidin if they fail to improve or resolve. However, patient is not a candidate for cantharidin at this time given that her hemoglobin A1c is 8.7%. Patient understand that she needs to bring her A1c down to less than 8% to undergo this procedure. All questions were answered to patient satisfaction. Patient understands to call with any questions or concerns. Patient will follow-up as needed This note was partially created using voice recognition software and is inherently subject to errors including those of syntax and sound-alike substitutions which may escape proofreading. In such instances, original meaning may be extrapolated by contextual derivation. Lissette Vera DPM, MS Podiatric Physician & Surgeon AUTHENTICATED BY LISSETTE VERA, ON 03/22/2025 20:14:33 PROGRESS Observed: 03/11/2025 1:35 AM Status: COMPLETED Source: [facility] Established Patient Visit Lissette Vera DPM Patient Name: Saravanan Powell. . Date of : 1975, 50 y.o.. Gender: female. Subjective: Patient is a pleasant 50-year-old female who presents to clinic complaining of calluses to her right foot. Patient states that she has been treating the calluses with a wart medication and applying [id number] wart pads. Reports that they have gotten worse. Reports pain and discomfort with ambulation. No other pedal complaints at this time. Denies fevers, chills, nausea, vomiting, chest pain, shortness of breath, or any other constitutional symptoms. Past Medical History: Diagnosis Date Arthritis Chronic pain Diabetes mellitus (HCC) Fibromyalgia Hypertension Parsonage-Collins syndrome Plantar fasciitis Past Surgical History: Procedure Laterality Date CHOLECYSTECTOMY FOOT SURGERY Right HYSTERECTOMY KIDNEY SURGERY stones TUMOR EXCISION neck Physical Examination: BP 123/72 (BP Location: Left arm, Patient Position: Sitting, BP Cuff Size: Adult) Pulse 84 Temp 98.1 degrees F (36.7 degrees C) (Oral) General Appearance: Alert, cooperative, no distress, appears stated age. Podiatric Exam Vascular: DP and PT pulses are palpable. Capillary refill time is less than 3 seconds to distal digits. Skin temperature is warm to warm from proximal tibial tuberosity to distal digit. Neurological: Gross sensation is intact. Protective sensation is intact. Dermatologic: Small porokeratotic lesions noted to the plantar right foot. No surrounding erythema, edema or any acute signs of infection. Interdigital spaces are clean dry and intact. Musculoskeletal: Tenderness to palpation to the porokeratotic lesions, plantar right foot. Ankle joint range of motion is intact. Muscle strength is 5/5 to dorsiflexors, plantar flexors, inverters and everters. Compartments soft and compressible. No calf pain Diagnoses: 1. Acquired plantar porokeratosis 2. Right foot pain XR Foot Right 3+ Views (Standard) Imaging: Right foot 3 views weightbearing radiographs were ordered on 02/22/2025 and I personally interpreted them as follows: A plantar calcaneal enthesophyte is noted. No cystic or osseous lesions noted. Joint spaces are within normal limits with exception of narrowing at the first metatarsophalangeal joint. No gross deformity noted Assessment/Plan: Patient was seen and evaluated. Discussed all clinical findings I ordered, interpreted, and discussed right foot radiographic findings with patient as noted above. Patient has small plantar parakeratotic lesions. Using a 4 mm ring curette, the nucleated core was removed. Patient expressed pain relief. Discussed possible treating them with cantharidin if they fail to improve or resolve. All questions were answered to patient satisfaction. Patient understands to call with any questions or concerns. Follow-up in 2 weeks for reevaluation. This note was partially created using voice recognition software and is inherently subject to errors including those of syntax and sound-alike substitutions which may escape proofreading. In such instances, original meaning may be extrapolated by contextual derivation. Lissette Vera DPM, MS Podiatric Physician & Surgeon AUTHENTICATED BY LISSETTE VERA, ON 03/11/2025 01:38:20 XR FOOT RIGHT 3+ VIEWS (STANDARD) Observed: 02/22/2025 12:00 AM Status: F Source: [facility] Order Comment: Injury/Trauma or Illness?:Illness/Other How long have you had these symptoms (acute/chronic)?:Chronic Reason for exam?:Right foot pain. No injury History of cancer?:no Surgeries, chemotherapy, or radiation?:RIGHT FOOT PLANTAR FASCIOTOMY Type of Exam?:Initial Additional signs and symptoms?:none A plantar calcaneal enthesop hyte is noted. No cystic or osseous lesions noted. Joint spaces are within normal limits with exception of narrowing at the first metatarsophalangeal joint. No gross deformity noted Dictated by: LISSETTE VERA on SatFeb 23, 2025 11:49:08 PM EDT Transcribed by: LISSETTE VERA on SatFeb 23, 2025 11:49:08 PM EDT Finalized by: LISSETTE VERA on SatFeb 23, 2025 11:49:08 PM EDT ALBUMIN/CREATININE RATIO, URINE Collect ed: 02/15/2025 2:24 PM Status: F Source: [facility] Order Comment: Specimen Type : URINE SPECIMEN Ordering Facility: [facility] Address: [address] [place] [address] TYPE CODE TESTS RESULT OUT OF RANGE REFERENCE UNITS LAB 2161-8(LOINC) Creat Ur-mCnc 171.8 20.0-300.0 m g/dL LAB 50286-8(LOINC ) Microalbumin Ur-mCnc 19.0 mg/L LAB 9318-7(LOINC) Albumin/Creat Ur 11 <30 mg/g Result Comment: Adult Male a nd Female Nephrotic Criteria: <30 mg/g is considered normal to mildly increased 30-300 mg/g is considered moderately increased >300 mg/g is considered severely increased KDIGO. (2013). KDIGO 2012 Clinical Practice Guideline for the Evaluation and Management of Chronic Kidney Disease. Official Journal of the International Society of Nephrology, 3(1), 1-150. Performed By: #### UACR #### [facility] CLIA [id number] [address] [id number] [place] BACTERIA UR CULT Observed: 02/15/2025 2:24 PM Status: F Source: [facility] ORGANISM ID: 1 >=100,000 CFU/ml Escherichia coli ORGANISM ID: 1 (ESCHERICHIA COLI) ----- ----- ANTIBIOTIC INTERPRETATION KEYUR STATUS REFERENCE RANGE ----- ----- Ampicillin R >=32 F Susceptible <=8 , Intermediate >8 , Resistant >16 Cefazolin S <=4 F Susceptible 0-16 , Intermediate <0 or >16 , Resistant >16 For uncomplicated urinary tract infections, cefazolin results can be used to predict susceptibility or resistance to cephalexin. Ceftriaxone S <=1 F Susceptible <=1 , Intermediate >1 , Resistant >=4 Cefepime S <=1 F Susceptible <=2 , Susceptible-Dose Dependent >2 , Resistant >=16 Ertapenem S <=0.5 F Susceptible <=0.5 , Intermediate >.5 , Resistant >1 Meropenem S <=0.25 F Susceptible <=1 , Intermediate >1 , Resistant >2 Ampicillin/Sulbact I 16 F Susceptible <=8 , Intermediate >8 , Resistant >16 Piperacillin/Tazobac S 8 F Susceptible <16 , Susceptible-Dose Dependent >=16 , Resistant >=32 Gentamicin S <=1 F Susceptible <=2 , Intermediate >2 , Resistant >=8 Tobramycin S <=1 F Susceptible <4 , Intermediate >=4 , Resistant >=8 Trimeth sulfameth R >=320 F Susceptible <=40 , Resistant >40 Ciprofloxacin S <=0.25 F Susceptible <0.5 , Intermediate >=.5 , Resistant >=1 Nitrofurantoin S <=16 F Susceptible <=32 , Intermediate >32 , Resistant >64 Performed By: #### 630-4 ### # [facility] CLIA [id number] [address] [place] [address] STATES OF [facility] URINALYSIS COMPLETE PNL UR Collected: 02/15/2025 2:24 PM Status: F Source: [facility] Order Comment: Specimen Type : URINE SPECIMEN Ordering Facility: [facility] Address: [address] [place] [address] TYPE CODE TESTS RESULT OUT OF RANGE REFERENCE UNITS LAB 5778-6(LOINC) Color Ur Yellow Yellow LAB 33268-3(LOINC) Clarity Spec Clear Clear LAB 5792-7(LOINC) Glucose Ur Strip-mCnc 1+ Abnormal Negative LAB 5770-3(LOINC) Bilirub Ur Ql Strip Negative Negative LAB 2514-8(LOINC) Ketones Ur Strip Negative Negative LAB 5811-5(LOINC) Sp Gr Ur Strip 1.024 1.005-1.030 LAB 5794-3(LOINC) Hgb Ur Ql Strip Negative Negative LAB 5803-2(LOINC) pH Ur Strip 5.5 <8.5 LAB 5804-0(LOINC) Prot Ur Strip-mCnc 1+ Abnormal Negative LAB 5818-0(LOINC) Urobilinogen Ur Strip 0.2 EU/dL 0.2-1.0 EU/dL LAB 5802-4(LOINC) Nitrite Ur Ql Strip Negative Negative LAB 5799-2(LOINC) Leukocyte esterase Ur Ql Strip 1+ Abnormal Negative LAB 5821-4(LOINC) WBC #/area UrnS HPF 6-10 /HPF Abnormal 0-5 /HPF LAB 99282-7(LOINC) RBC #/area UrnS HPF 3-5 /HPF Abnormal 0-2 /HPF LAB [id number] BACTERIA UL 5572.8 High Negative uL LAB 5787-7(LOINC) Epi Cells #/area UrnS HPF Moderate /HPF LAB 5796-8(LOINC) Hyaline Casts #/area UrnS LPF 0 /LPF 0 /LPF LAB 1CAOX CALCIUM OXALATE CRYSTALS (UA) Few Abnormal None Seen /HPF Performed By: #### 15436-5 # ### [facility] CLIA [id number] [address] [place], [place] [address] [place] [address] [place] COMP METAB 2000 PNL SERPL Collected: 1:40 PM Status: F Source: [facility] Order Comment: Specimen Type : BLOOD SPECIMEN Ordering Facility: [facility] Address: [address] [place] [address] TYPE CODE TESTS RESULT OUT OF RANGE REFERENCE UNITS LAB 2885-2(LOINC) Prot SerPl-mCnc 6.9 6.3-8.0 g/dL LAB 1751-7(LOINC) Albumin SerPl-mCnc 4.1 3.9-4.9 g/dL LAB 35480-8(LOINC) Calcium SerPl-mCnc 9.9 8.5-10.2 mg/dL LAB 1975-2(LOINC) Bilirub SerPl-mCnc 0.3 0.2-1.3 mg/dL LAB 6768-6(LOINC) ALP SerPl-cCnc 93 34-123 U/L LAB 1920-8(LOINC) AST SerPl-cCnc 27 13-35 U/L LAB 1742-6(LOINC) ALT SerPl-cCnc 27 7-38 U/L LAB 2345-7(LOINC) Glucose SerPl-mCnc 245 High 74-99 mg/dL Result Comment: The [place] Diabetes Association (ADA) provides guidance for cutoff values for fasting glucose and random glucose. The ADA defines fasting as no caloric intake for at least 8 hours. Fasting plasma glucose results between 100 to 125 mg/dL indicate increased risk for diabetes (prediabetes). Fasting plasma glucose results greater than or equal to 126 mg/dL meet the criteria for diagnosis of diabetes. In the absence of unequivocal hyperglycemia, results should be confirmed by repeat testing. In a patient with classic symptoms of hyperglycemia or hyperglycemic crisis, random plasma glucose results greater than or equal to 200 mg/dL meet the criteria for diagnosis of diabetes. Reference: Standards of Medical Care in Diabetes 2016, [place] Diabetes Association. Diabetes Care. 2016.39(Suppl 1). LAB 3094-0(LOINC) BUN SerPl-mCnc 9 7-21 mg/ dL LAB 2160-0(LOINC) Creat SerPl-mCnc 0.61 0.58-0.96 mg/dL LAB 2951-2(LOINC) Sodium SerPl-sCnc 140 136-144 mmol/L LAB 2823-3(LOINC) Potassium SerPl-sCnc 4.3 3.7-5.1 mmol/L LAB 2075-0(LOINC) Chloride SerPl-sCnc 103 98-107 mmol/L LAB 2028-9(LOINC) CO2 SerPl-sCnc 21 Low 22-30 mmo l/L LAB 27682-8(LOINC) Anion Gap SerPl-sCnc 16 High 8-15 mmol/L LAB 86699-8(LOINC) Creatinine + eGFR Pnl SerPlBld 108 >=60 mL/min/1 .73m??? Result Comment: Estimated Gl omerular Filtration Rate (eGFR) is calculated using the 2020 CKD-EPI creatinine equation. This equation utilizes serum creatinine, sex, and age as parameters. The creatinine assay has traceable calibration to isotope dilution-mass spectrometry. Refer to KDIGO guidelines for clinical interpretation. In patients with unstable renal function, e.g. those with acute kidney injury, the eGFR may not accurately reflect actual GFR. Performed By: #### 66074-6, 69623-4 #### [facility] CLIA [id number] [address] [place] [address] [place] LIPID 1996 PNL SERPL Collected: 025 1:40 PM Status: F Source: [facility] Order Comment: Specimen Type : BLOOD SPECIMEN Ordering Facility: [facility] Address: [address] [place] [address] TYPE CODE TESTS RESULT OUT OF RANGE REFERENCE UNITS LAB 2093-3(LOINC) Cholest SerPl-mCnc 164 <200 mg/dL Result Comment: <200 mg/dL, Desirable 200-239 mg/dL, Borderline high >239 mg/dL, High LAB 2571-8(LOINC) Trigl SerPl-mCnc 178 High <150 mg/dL Result Comment: <150 mg/dL, Normal 150-199 mg/dL, Borderline high 200-499 mg/dL, High >499 mg/dL, Very high LAB 2085-9(LOINC) HDLc SerPl-mCnc 44 >39 mg/dL Result Comment: 40-59 mg/dL, Acceptable >59 mg/dL, High: Negative risk factor for coronary heart disease <40 mg/dL, Low: Positive risk factor for coronary heart disease LAB 2089-1(LOINC) LDLc SerPl-mCnc 89 <100 mg/dL Result Comment: <100 mg/dL, Optimal 100-129 mg/dL, Near optimal/above optimal 130-159 mg/dL, Borderline high 160-189 mg/dL, High >189 mg/dL, Very high Secondary prevention optimal LDL Cholesterol levels are recommended to be <70 mg/dL LDL cholesterol is calculated using the Flood-NIH equation. LAB 49645-9(LOINC) NonHDLc SerPl-mCnc 120 <130 mg/dL Result Comment: <130 mg/dL, Optimal 130-159 mg/dL, Near optimal/above optimal 160-189 mg/dL, Borderline high 190-219 mg/dL, High >219 mg/dL, Very high Secondary prevention optimal non HDL Cholesterol levels are recommended to be <100 mg/dL LAB 97203-5(LOINC) VLDLc SerPl Calc-mCnc 28 <30 mg/dL LAB 9830-1(LOINC) Cholest/HDLc SerPl 3.73 <5.10 LAB 09838-5(LOINC) LDLc/HDLc SerPl 2.02 <2.54 Result Comment: Reference: 1. National Cholesterol Education Program ATP III Guideline At-A-Glance Quick Desk Reference: National Heart, Lung, and Blood [place]. National Institutes of Health. 2001: NIH Publication No. 01-3305. 2. An International Atherosclerosis Society position paper: global recommendations for the management of dyslipidemia: executive summary, Atherosclerosis. 2014: 232(2):410-413. LAB FT FASTING TIME 12 hrs Performed By: #### 14757-9, 35991-6 #### [facility] CLIA [id number] [address] [place] [address] [place] [address] [place] DEPRECATED HGB A1C BLD Collected: 02/15 1:40 PM Status: F [facility]: [facility] Order Comment: Specimen Type : BLOOD SPECIMEN Ordering Facility: [facility] Address: [address] [place] [address] TYPE CODE TESTS RESULT OUT OF RANGE REFERENCE UNITS LAB 4548-4([facility]) HbA1c MFr Bld 8.7 High 4.3-5.6 % Result Comment: [place] Kimberly betes Association guidelines indicate that patients with HgbA1c in the range 5.7-6.4% are at increased risk for development of diabetes, and intervention by lifestyle modification may be beneficial. HgbA1c greater or equal to 6.5% is considered diagnostic of diabetes. LAB 81920-8([facility]) Est. average glucose Bld gHb Est-mCnc 203 mg/dL Result Comment: eAG: (Estima janak average glucose) is a calculated value from HgbA1c and is brewery representative of the average blood glucose level in the last 2-3 month period. Performed By: #### 13110-6 # ### [facility] CLIA [id number] [address] [place] [address] OF [facility] CNPN Observed: 02/15/2025 12:00 AM Status: COMPLETED Source: [facility] Telephone ([employer]) SARAVANAN POWELL ([id number]) 1975 F Date Time Provider Department 02/15/25 [facility] During your visit today, we recorded the following information about you: Mercy Mireles MA 02/15/2025 1:44 PM Signed Patient at lab today. She had to give urine sample for albumin. She feel like she might be getting a UTI again and asking for lab order to check. Jolly Hill APRN.HAT IRONER 02/15/2025 5:21 PM Signed Done. Allergies As of Date: 02/15/2025 Noted Allergy Reaction CODEINE 10/12/2005 OZEMPIC (SEMAGLUTIDE) 05/18/2024 11 - Vomiting TRULICITY (DULAGLUTIDE) 05/18/2024 11 - Vomiting VICODIN (HYDROCODONE-ACETAMINOPHE*10/15/2005 11 - Vomiting Date Reviewed: 10/01/2024 Reviewed by: Soniya Patricio LPN - Fully Assessed Reason for Visit: Orders [681] Primary Visit Diagnosis:Dysuria [R30.0] Other Visit Diagnosis:Urinary frequency [R35.0] Order(s):BACTERIAL CULTURE, URINE [SQURCUL] Order #: [id number] FUTURE URINALYSIS, WITH MICROSCOPIC [SQUAWMIC] Order #: [id number] FUTURE Prescriptions as of 02/15/2025 - pregabalin (LYRICA) 150 mg capsule Take 1 capsule by mouth two times a day for 90 days. - linaGLIPtin (TRADJENTA) 5 mg tab Take 1 tablet by mouth once daily. - promethazine-PHENYLephrine 6.25-5 mg/5 mL syrup Take 5 mL by mouth four times a day as needed (FOR CONGESTION AND POST NASAL DRIP; MAY CAUSE SEDATION ). - DULoxetine (CYMBALTA) 60 mg capsule Take 1 capsule by mouth once daily. - meclizine (ANTIVERT) 25 mg tab Take 1 tablet by mouth three times a day as needed. - losartan (COZAAR) 50 mg tablet Take 1 tablet by mouth once daily. - metoprolol succinate ER (TOPROL XL) 50 mg 24 hr tablet Take 1 tablet by mouth once daily. - metFORMIN (GLUCOPHAGE) 1,000 mg tablet Take 1 tablet by mouth two times a day with meals. - Lancets Test blood sugar(s) 2 times daily. Dx: Type 2 DM - Uncontrolled E11.65 Insulin: No - blood sugar diagnostic (BLOOD GLUCOSE TEST) test strip Test blood sugar(s) 2 times daily. Dx: Type 2 DM - Controlled E11.9 Insulin: No - buPROPion (WELLBUTRIN) 75 mg tablet Take 1 tablet by mouth two times a day. - glimepiride (AMARYL) 2 mg tablet Take 1 tablet by mouth daily with breakfast. - tiZANidine HCl (ZANAFLEX) 2 mg capsule Take 2 mg by mouth three times a day as needed for muscle spasm. - albuterol HFA (PROVENTIL HFA, VENTOLIN HFA) 90 mcg/actuation inhaler Inhale 2 Puffs as instructed every 4 hours as needed for wheezing/shortness of breath. - ondansetron orally disintegrating (ZOFRAN ODT) 8 mg disintegrating tablet Take 1 tablet by mouth every 8 hours as needed for nausea/vomiting. - folic acid 1 mg tablet Take 2 mg by mouth once daily. - methotrexate 2.5 mg tablet take 6 tablets by mouth ONCE WEEKLY - hydrOXYchloroQUINE (PLAQUENIL) 200 mg tablet Take 200 mg by mouth twice daily. - blood sugar diagnostic (BLOOD GLUCOSE TEST) test strip Test blood sugar(s) 1 times daily. Dx: Type 2 DM - Uncontrolled E11.65 Insulin: No - Lancets lancets Test blood sugar(s) 1 times daily. Dx: Type 2 DM - Uncontrolled E11.65 Insulin: No - CPAP Autopap 11-20 cm H2O, Heat Humidity, suitable mask, [employer] supplies, opt Chinstrap, G47.33. - EMGALITY PEN 120 mg/mL pnij INJECT 120MG/ML PEN TWICE FOR THE 1ST MONTH AND ONCE A MONTH THEREAFTER - buprenorphine (BELBUCA) [address] 150 mcg between cheek and gum q 12 HR. - blood sugar diagnostic (ONETOUCH VERIO) test strip Test blood sugar(s) 2 times daily. Dx: 250.02. Insulin: No - traMADol (ULTRAM) 50 mg tablet Take 50 mg by mouth every 8 hours as needed. Problem List As Of Date 02/15/2025 Noted Resolved Migraine, unspecified, with intractable migrain*07/10/2006 05/15/2018 Dysmenorrhea [N94.6] 03/02/2008 09/14/2016 Left flank pain [R10.9] 08/31/2009 09/14/2016 Hydronephrosis [N13.30] 08/31/2009 09/14/2016 FB bladder/urethra [T19.1XXA, T19.0XXA] 09/13/2009 09/14/2016 Other and unspecified ovarian cyst [N83.209] 09/14/2009 05/15/2018 Endometriosis [N80.9] 11/29/2009 Restless Legs [G25.81] 12/27/2009 Numbness and tingling [R20.0, R20.2] 05/12/2010 09/14/2016 Fibromyalgia [M79.7] 10/17/2010 Obstructive sleep apnea syndrome [G47.33] 08/20/2013 Chronic pain [G89.29] 06/08/2014 Chronic back pain [M54.9, G89.29] 06/08/2014 09/14/2016 Type 2 diabetes mellitus without complication (*05/16/2015 05/11/2024 Low HDL (under 40) [E78.6] 01/02/2018 Obesity, Class III, BMI 40-49.9 (morbid obesity*01/16/2018 12/31/2023 Rosacea [L71.9] 02/04/2018 Post-hysterectomy menopause [E89.40, Z90.710] 02/04/2018 05/15/2018 Sweating profusely [R61] 02/04/2018 05/23/2020 Symptomatic menopausal or female climacteric st*05/15/2018 05/15/2018 Hx of hysterectomy [Z90.710] menopause age 43 with VMS s/p TH [N95.1] 05/15/2018 Hormone replacement therapy (HRT) [Z79.890] 05/15/2018 hx of low vitamin D [E55.9] Weight gain [R63.5] 12/31/2023 Screening for colon cancer [Z12.11] 07/10/2018 08/11/2018 Cervical radiculopathy [M54.12] 08/29/2018 Pain of left upper extremity [M79.602] 08/29/2018 05/23/2020 Muscle wasting and atrophy, not elsewhere class*09/03/2018 05/23/2020 Essential hypertension [I10] 05/23/2020 BMI 50.0-59.9, adult (HCC) [Z68.43] 10/25/2020 Rheumatoid arthritis (HCC) [M06.9] 11/19/2022 Type 2 diabetes mellitus with diabetic neuropat*12/19/2022 Encounter Status:Closed by MER[facility] MIRELES on 02/15/25 PROGRESS Observed: 02/09/2025 10:15 AM Status: COMPLETED Source: [facility] ID: [id number] Author: ?, ?, ? Service: ? Author Type: ? Type: Progress Notes Filed: 02/09/2025 13:08 Note Text: POPULATION HEALTH NAVIGATION OUTREACH Action/FYI Patient outreach for Hcc Gaps; ZEE, A1C, AWV, BP, KED. Spoke with pt and declined scheduling all appointments. Uses OSH for EYE and is aware to have done in May. Did okay to have KED pended. A1C is already ordered. Dr. Matt, Please approve these orders for the patient to be completed prior to their appointment. Additionally, feel free to place any other orders you deem necessary. Thank you! Pended Orders ID Status Description Pended By When Reason [id number] Pended ALBUMIN/CREATININE RATIO, URINE Nicole Harding 02/09/25 1022 Reason for Outreach Care Gap/HCC or Scheduling Wellness Visits Care Gaps due: Medicare Annual Wellness Visit Controlling Blood Pressure Diabetic Eye Exam HBA1C KED Patient Contacted: Spoke to patient/parent/or legal guardian Patient identified by name and : Yes Care Gap/HCC/Scheduling Wellness actions taken: Patient declined: Patient will contact office directly to schedule HCC related Navigation Signature: Nicole Doe February 09, 2025 10:15 AM RACHEL Observed: 02/09/2025 12:00 AM Status: COMPLETED Source: [facility] Patient Outreach (NETNAV) SARAVANAN POWELL ([id number]) 1975 F Date Time Provider Department 02/09/25 SAMEER MATT During your visit today, we recorded the following information about you: Nicole Harding 02/09/2025 1:08 PM Signed POPULATION HEALTH NAVIGATION OUTREACH Action/FYI Patient outreach for Hcc Gaps; ZEE, A1C, AWV, BP, KED. Spoke with pt and declined scheduling all appointments. Uses OSH for EYE and is aware to have done in May. Did okay to have KED pended. A1C is already ordered. Dr. Matt, Please approve these orders for the patient to be completed prior to their appointment. Additionally, feel free to place any other orders you deem necessary. Thank you! Pended Orders ID Status Description Pended By When Reason [id number] Pended ALBUMIN/CREATININE RATIO, URINE Tommy NaderNicole 02/09/25 1022 Reason for Outreach Care Gap/HCC or Scheduling Wellness Visits Care Gaps due: Medicare Annual Wellness Visit Controlling Blood Pressure Diabetic Eye Exam HBA1C KED Patient Contacted: Spoke to patient/parent/or legal guardian Patient identified by name and : Yes Care Gap/HCC/Scheduling Wellness actions taken: Patient declined: Patient will contact office directly to schedule HCC related Navigation Signature: Nicole Engserene Pss February 09, 2025 10:15 AM Allergies As of Date: 02/09/2025 Noted Allergy Reaction CODEINE 10/12/2005 OZEMPIC (SEMAGLUTIDE) 05/18/2024 11 - Vomiting TRULICITY (DULAGLUTIDE) 05/18/2024 11 - Vomiting VICODIN (HYDROCODONE-ACETAMINOPHE*10/15/2005 11 - Vomiting Date Reviewed: 10/01/2024 Reviewed by: Soniya Patricio LPN - Fully Assessed Reason for Visit: Population Health Navigation Outreach [3910] Cmt: Penelope Atkins Primary Visit Diagnosis:Type 2 diabetes mellitus with diabetic neuropathy, unspecified whether chcf insulin use (HCC) [E11.40] Order(s):ALBUMIN/CREATININE RATIO, URINE [SQUACR] Order #: [id number] FUTURE Prescriptions as of 02/09/2025 - pregabalin (LYRICA) 150 mg capsule Take 1 capsule by mouth two times a day for 90 days. - linaGLIPtin (TRADJENTA) 5 mg tab Take 1 tablet by mouth once daily. - promethazine-PHENYLephrine 6.25-5 mg/5 mL syrup Take 5 mL by mouth four times a day as needed (FOR CONGESTION AND POST NASAL DRIP; MAY CAUSE SEDATION ). - DULoxetine (CYMBALTA) 60 mg capsule Take 1 capsule by mouth once daily. - meclizine (ANTIVERT) 25 mg tab Take 1 tablet by mouth three times a day as needed. - losartan (COZAAR) 50 mg tablet Take 1 tablet by mouth once daily. - metoprolol succinate ER (TOPROL XL) 50 mg 24 hr tablet Take 1 tablet by mouth once daily. - metFORMIN (GLUCOPHAGE) 1,000 mg tablet Take 1 tablet by mouth two times a day with meals. - Lancets Test blood sugar(s) 2 times daily. Dx: Type 2 DM - Uncontrolled E11.65 Insulin: No - blood sugar diagnostic (BLOOD GLUCOSE TEST) test strip Test blood sugar(s) 2 times daily. Dx: Type 2 DM - Controlled E11.9 Insulin: No - buPROPion (WELLBUTRIN) 75 mg tablet Take 1 tablet by mouth two times a day. - glimepiride (AMARYL) 2 mg tablet Take 1 tablet by mouth daily with breakfast. - tiZANidine HCl (ZANAFLEX) 2 mg capsule Take 2 mg by mouth three times a day as needed for muscle spasm. - albuterol HFA (PROVENTIL HFA, VENTOLIN HFA) 90 mcg/actuation inhaler Inhale 2 Puffs as instructed every 4 hours as needed for wheezing/shortness of breath. - ondansetron orally disintegrating (ZOFRAN ODT) 8 mg disintegrating tablet Take 1 tablet by mouth every 8 hours as needed for nausea/vomiting. - folic acid 1 mg tablet Take 2 mg by mouth once daily. - methotrexate 2.5 mg tablet take 6 tablets by mouth ONCE WEEKLY - hydrOXYchloroQUINE (PLAQUENIL) 200 mg tablet Take 200 mg by mouth twice daily. - blood sugar diagnostic (BLOOD GLUCOSE TEST) test strip Test blood sugar(s) 1 times daily. Dx: Type 2 DM - Uncontrolled E11.65 Insulin: No - Lancets lancets Test blood sugar(s) 1 times daily. Dx: Type 2 DM - Uncontrolled E11.65 Insulin: No - CPAP Autopap 11-20 cm H2O, Heat Humidity, suitable mask, Lif[employer] supplies, opt Chinstrap, G47.33. - EMGALITY PEN 120 mg/mL pnij INJECT 120MG/ML PEN TWICE FOR THE 1ST MONTH AND ONCE A MONTH THEREAFTER - buprenorphine (BELBUCA) [address] 150 mcg between cheek and gum q 12 HR. - blood sugar diagnostic (ONETOUCH VERIO) test strip Test blood sugar(s) 2 times daily. Dx: 250.02. Insulin: No - traMADol (ULTRAM) 50 mg tablet Take 50 mg by mouth every 8 hours as needed. Problem List As Of Date 02/09/2025 Noted Resolved Migraine, unspecified, with intractable migrain*07/10/2006 05/15/2018 Dysmenorrhea [N94.6] 03/02/2008 09/14/2016 Left flank pain [R10.9] 08/31/2009 09/14/2016 Hydronephrosis [N13.30] 08/31/2009 09/14/2016 FB bladder/urethra [T19.1XXA, T19.0XXA] 09/13/2009 09/14/2016 Other and unspecified ovarian cyst [N83.209] 09/14/2009 05/15/2018 Endometriosis [N80.9] 11/29/2009 Restless Legs [G25.81] 12/27/2009 Numbness and tingling [R20.0, R20.2] 05/12/2010 09/14/2016 Fibromyalgia [M79.7] 10/17/2010 Obstructive sleep apnea syndrome [G47.33] 08/20/2013 Chronic pain [G89.29] 06/08/2014 Chronic back pain [M54.9, G89.29] 06/08/2014 09/14/2016 Type 2 diabetes mellitus without complication (*05/16/2015 05/11/2024 Low HDL (under 40) [E78.6] 01/02/2018 Obesity, Class III, BMI 40-49.9 (morbid obesity*01/16/2018 12/31/2023 Rosacea [L71.9] 02/04/2018 Post-hysterectomy menopause [E89.40, Z90.710] 02/04/2018 05/15/2018 Sweating profusely [R61] 02/04/2018 05/23/2020 Symptomatic menopausal or female climacteric st*05/15/2018 05/15/2018 Hx of hysterectomy [Z90.710] menopause age 43 with VMS s/p TH [N95.1] 05/15/2018 Hormone replacement therapy (HRT) [Z79.890] 05/15/2018 hx of low vitamin D [E55.9] Weight gain [R63.5] 12/31/2023 Screening for colon cancer [Z12.11] 07/10/2018 08/11/2018 Cervical radiculopathy [M54.12] 08/29/2018 Pain of left upper extremity [M79.602] 08/29/2018 05/23/2020 Muscle wasting and atrophy, not elsewhere class*09/03/2018 05/23/2020 Essential hypertension [I10] 05/23/2020 BMI 50.0-59.9, adult ([facility]) [Z68.43] 10/25/2020 Rheumatoid arthritis ([facility]) [M06.9] 11/19/2022 Type 2 diabetes mellitus with diabetic neuropat*12/19/2022 Encounter Status:Closed by SAMEER MATT on 02/09/25 MANUELN Observed: 02/08/2025 12:00 AM Status: COMPLETED Source: [facility] Telephone [facility] SARAVANAN POWELL ([id number]) 1975 F Date Time Provider Department 02/08/25 KACIE GUEVARA [facility] During your visit today, we recorded the following information about you: Kacie Guevara APRN.HAT IRONER 02/08/2025 8:12 AM Signed Needs updated labs. Allergies As of Date: 02/08/2025 Noted Allergy Reaction CODEINE 10/12/2005 OZEMPIC (SEMAGLUTIDE) 05/18/2024 11 - Vomiting TRULICITY (DULAGLUTIDE) 05/18/2024 11 - Vomiting VICODIN (HYDROCODONE-ACETAMINOPHE*10/15/2005 11 - Vomiting Date Reviewed: 10/01/2024 Reviewed by: Soniya Patricio LPN - Fully Assessed Primary Visit Diagnosis:Type 2 diabetes mellitus without complication, with long-term current use of insulin ([facility]) [E11.9, Z79.4] Other Visit Diagnoses:Essential hypertension [I10] Pure hypercholesterolemia [E78.00] Order(s):HEMOGLOBIN A1C [WVFAF5L] Order #: [id number] FUTURE LIPID PANEL, FASTING [SQLIPB] Order #: [id number] FUTURE COMPREHENSIVE METABOLIC PANEL [SQCMP] Order #: [id number] FUTURE Prescriptions as of 02/08/2025 - pregabalin (LYRICA) 150 mg capsule Take 1 capsule by mouth two times a day for 90 days. - linaGLIPtin (TRADJENTA) 5 mg tab Take 1 tablet by mouth once daily. - promethazine-PHENYLephrine 6.25-5 mg/5 mL syrup Take 5 mL by mouth four times a day as needed (FOR CONGESTION AND POST NASAL DRIP; MAY CAUSE SEDATION ). - DULoxetine (CYMBALTA) 60 mg capsule Take 1 capsule by mouth once daily. - meclizine (ANTIVERT) 25 mg tab Take 1 tablet by mouth three times a day as needed. - losartan (COZAAR) 50 mg tablet Take 1 tablet by mouth once daily. - metoprolol succinate ER (TOPROL XL) 50 mg 24 hr tablet Take 1 tablet by mouth once daily. - metFORMIN (GLUCOPHAGE) 1,000 mg tablet Take 1 tablet by mouth two times a day with meals. - Lancets Test blood sugar(s) 2 times daily. Dx: Type 2 DM - Uncontrolled E11.65 Insulin: No - blood sugar diagnostic (BLOOD GLUCOSE TEST) test strip Test blood sugar(s) 2 times daily. Dx: Type 2 DM - Controlled E11.9 Insulin: No - buPROPion (WELLBUTRIN) 75 mg tablet Take 1 tablet by mouth two times a day. - glimepiride (AMARYL) 2 mg tablet Take 1 tablet by mouth daily with breakfast. - tiZANidine HCl (ZANAFLEX) 2 mg capsule Take 2 mg by mouth three times a day as needed for muscle spasm. - albuterol HFA (PROVENTIL HFA, VENTOLIN HFA) 90 mcg/actuation inhaler Inhale 2 Puffs as instructed every 4 hours as needed for wheezing/shortness of breath. - ondansetron orally disintegrating (ZOFRAN ODT) 8 mg disintegrating tablet Take 1 tablet by mouth every 8 hours as needed for nausea/vomiting. - folic acid 1 mg tablet Take 2 mg by mouth once daily. - methotrexate 2.5 mg tablet take 6 tablets by mouth ONCE WEEKLY - hydrOXYchloroQUINE (PLAQUENIL) 200 mg tablet Take 200 mg by mouth twice daily. - blood sugar diagnostic (BLOOD GLUCOSE TEST) test strip Test blood sugar(s) 1 times daily. Dx: Type 2 DM - Uncontrolled E11.65 Insulin: No - Lancets lancets Test blood sugar(s) 1 times daily. Dx: Type 2 DM - Uncontrolled E11.65 Insulin: No - CPAP Autopap 11-20 cm H2O, Heat Humidity, suitable mask, [employer] supplies, opt Chinstrap, G47.33. - EMGALITY PEN 120 mg/mL pnij INJECT 120MG/ML PEN TWICE FOR THE 1ST MONTH AND ONCE A MONTH THEREAFTER - buprenorphine (BELBUCA) [address] 150 mcg between cheek and gum q 12 HR. - blood sugar diagnostic (ONETOUCH VERIO) test strip Test blood sugar(s) 2 times daily. Dx: 250.02. Insulin: No - traMADol (ULTRAM) 50 mg tablet Take 50 mg by mouth every 8 hours as needed. Problem List As Of Date 02/08/2025 Noted Resolved Migraine, unspecified, with intractable migrain*07/10/2006 05/15/2018 Dysmenorrhea [N94.6] 03/02/2008 09/14/2016 Left flank pain [R10.9] 08/31/2009 09/14/2016 Hydronephrosis [N13.30] 08/31/2009 09/14/2016 FB bladder/urethra [T19.1XXA, T19.0XXA] 09/13/2009 09/14/2016 Other and unspecified ovarian cyst [N83.209] 09/14/2009 05/15/2018 Endometriosis [N80.9] 11/29/2009 Restless Legs [G25.81] 12/27/2009 Numbness and tingling [R20.0, R20.2] 05/12/2010 09/14/2016 Fibromyalgia [M79.7] 10/17/2010 Obstructive sleep apnea syndrome [G47.33] 08/20/2013 Chronic pain [G89.29] 06/08/2014 Chronic back pain [M54.9, G89.29] 06/08/2014 09/14/2016 Type 2 diabetes mellitus without complication (*05/16/2015 05/11/2024 Low HDL (under 40) [E78.6] 01/02/2018 Obesity, Class III, BMI 40-49.9 (morbid obesity*01/16/2018 12/31/2023 Rosacea [L71.9] 02/04/2018 Post-hysterectomy menopause [E89.40, Z90.710] 02/04/2018 05/15/2018 Sweating profusely [R61] 02/04/2018 05/23/2020 Symptomatic menopausal or female climacteric st*05/15/2018 05/15/2018 Hx of hysterectomy [Z90.710] menopause age 43 with VMS s/p TH [N95.1] 05/15/2018 Hormone replacement therapy (HRT) [Z79.890] 05/15/2018 hx of low vitamin D [E55.9] Weight gain [R63.5] 12/31/2023 Screening for colon cancer [Z12.11] 07/10/2018 08/11/2018 Cervical radiculopathy [M54.12] 08/29/2018 Pain of left upper extremity [M79.602] 08/29/2018 05/23/2020 Muscle wasting and atrophy, not elsewhere class*09/03/2018 05/23/2020 Essential hypertension [I10] 05/23/2020 BMI 50.0-59.9, adult (HCC) [Z68.43] 10/25/2020 Rheumatoid arthritis (HCC) [M06.9] 11/19/2022 Type 2 diabetes mellitus with diabetic neuropat*12/19/2022 Encounter Status:Closed by KACIE GUEVARA on 02/08/25 PROGRESS Observed: 01/04/2025 9:57 AM Status: COMPLETED Source: [facility] HNO ID: [id number] Author: JULES GONZALEZ MA Service: ? Author Type: Brand Activation Manager Type: Progress Notes Filed: 01/04/2025 10:00 Note Text: POPULATION HEALTH NAVIGATION OUTREACH Action/FYI Gaps due: AWV BP DIABETIC RETINAL EXAM A1C LVM/MCM HCCS Med adherence: Tradjenta Reason for Outreach Care Gap/HCC or Scheduling Wellness Visits Care Gaps due: Medicare Annual Wellness Visit Controlling Blood Pressure Diabetic Eye Exam HBA1C Patient Contacted: Unable or unnecessary to reach patient: Left message MyChart message sent HCC related Navigation Signature: Jules Gonzalez MA January 04, 2025 9:57 AM CNPTOUTREACH Observed: 01/04/2025 12:00 AM Status: COMPLETED Source: [facility] Patient Outreach (NETNAV) SARAVANAN POWELL ([id number]) 1975 F Date Time Provider Department 01/04/25 JULES GONZALEZ During your visit today, we recorded the following information about you: Jules Gonzalez MA 01/04/2025 10:00 AM Signed POPULATION HEALTH NAVIGATION OUTREACH Action/FYI Gaps due: AWV BP DIABETIC RETINAL EXAM A1C [facility] HCCS Med adherence: Tradjenta Reason for Outreach Care Gap/HCC or Scheduling Wellness Visits Care Gaps due: Medicare Annual Wellness Visit Controlling Blood Pressure Diabetic Eye Exam HBA1C Patient Contacted: Unable or unnecessary to reach patient: Left message Rotapanelt message sent HCC related Navigation Signature: Jules Gonzalez MA January 04, 2025 9:57 AM Allergies As of Date: 01/04/2025 Noted Allergy Reaction CODEINE 10/12/2005 OZEMPIC (SEMAGLUTIDE) 05/18/2024 11 - Vomiting TRULICITY (DULAGLUTIDE) 05/18/2024 11 - Vomiting VICODIN (HYDROCODONE-ACETAMINOPHE*10/15/2005 11 - Vomiting Date Reviewed: 10/01/2024 Reviewed by: Soniya Patricio LPN - Fully Assessed Reason for Visit: Population Health Navigation Outreach [3910] Cmt: Penelope atkins Prescriptions as of 01/04/2025 - pregabalin (LYRICA) 150 mg capsule Take 1 capsule by mouth two times a day for 90 days. - linaGLIPtin (TRADJENTA) 5 mg tab Take 1 tablet by mouth once daily. - promethazine-PHENYLephrine 6.25-5 mg/5 mL syrup Take 5 mL by mouth four times a day as needed (FOR CONGESTION AND POST NASAL DRIP; MAY CAUSE SEDATION ). - DULoxetine (CYMBALTA) 60 mg capsule Take 1 capsule by mouth once daily. - meclizine (ANTIVERT) 25 mg tab Take 1 tablet by mouth three times a day as needed. - losartan (COZAAR) 50 mg tablet Take 1 tablet by mouth once daily. - metoprolol succinate ER (TOPROL XL) 50 mg 24 hr tablet Take 1 tablet by mouth once daily. - metFORMIN (GLUCOPHAGE) 1,000 mg tablet Take 1 tablet by mouth two times a day with meals. - Lancets Test blood sugar(s) 2 times daily. Dx: Type 2 DM - Uncontrolled E11.65 Insulin: No - blood sugar diagnostic (BLOOD GLUCOSE TEST) test strip Test blood sugar(s) 2 times daily. Dx: Type 2 DM - Controlled E11.9 Insulin: No - buPROPion (WELLBUTRIN) 75 mg tablet Take 1 tablet by mouth two times a day. - glimepiride (AMARYL) 2 mg tablet Take 1 tablet by mouth daily with breakfast. - tiZANidine HCl (ZANAFLEX) 2 mg capsule Take 2 mg by mouth three times a day as needed for muscle spasm. - albuterol HFA (PROVENTIL HFA, VENTOLIN HFA) 90 mcg/actuation inhaler Inhale 2 Puffs as instructed every 4 hours as needed for wheezing/shortness of breath. - ondansetron orally disintegrating (ZOFRAN ODT) 8 mg disintegrating tablet Take 1 tablet by mouth every 8 hours as needed for nausea/vomiting. - folic acid 1 mg tablet Take 2 mg by mouth once daily. - methotrexate 2.5 mg tablet take 6 tablets by mouth ONCE WEEKLY - hydrOXYchloroQUINE (PLAQUENIL) 200 mg tablet Take 200 mg by mouth twice daily. - blood sugar diagnostic (BLOOD GLUCOSE TEST) test strip Test blood sugar(s) 1 times daily. Dx: Type 2 DM - Uncontrolled E11.65 Insulin: No - Lancets lancets Test blood sugar(s) 1 times daily. Dx: Type 2 DM - Uncontrolled E11.65 Insulin: No - CPAP Autopap 11-20 cm H2O, Heat Humidity, suitable mask, [employer] supplies, opt Chinstrap, G47.33. - EMGALITY PEN 120 mg/mL pnij INJECT 120MG/ML PEN TWICE FOR THE 1ST MONTH AND ONCE A MONTH THEREAFTER - buprenorphine (BELBUCA) [address] 150 mcg between cheek and gum q 12 HR. - blood sugar diagnostic (ONETOUCH VERIO) test strip Test blood sugar(s) 2 times daily. Dx: 250.02. Insulin: No - traMADol (ULTRAM) 50 mg tablet Take 50 mg by mouth every 8 hours as needed. Problem List As Of Date 01/04/2025 Noted Resolved Migraine, unspecified, with intractable migrain*07/10/2006 05/15/2018 Dysmenorrhea [N94.6] 03/02/2008 09/14/2016 Left flank pain [R10.9] 08/31/2009 09/14/2016 Hydronephrosis [N13.30] 08/31/2009 09/14/2016 FB bladder/urethra [T19.1XXA, T19.0XXA] 09/13/2009 09/14/2016 Other and unspecified ovarian cyst [N83.209] 09/14/2009 05/15/2018 Endometriosis [N80.9] 11/29/2009 Restless Legs [G25.81] 12/27/2009 Numbness and tingling [R20.0, R20.2] 05/12/2010 09/14/2016 Fibromyalgia [M79.7] 10/17/2010 Obstructive sleep apnea syndrome [G47.33] 08/20/2013 Chronic pain [G89.29] 06/08/2014 Chronic back pain [M54.9, G89.29] 06/08/2014 09/14/2016 Type 2 diabetes mellitus without complication (*05/16/2015 05/11/2024 Low HDL (under 40) [E78.6] 01/02/2018 Obesity, Class III, BMI 40-49.9 (morbid obesity*01/16/2018 12/31/2023 Rosacea [L71.9] 02/04/2018 Post-hysterectomy menopause [E89.40, Z90.710] 02/04/2018 05/15/2018 Sweating profusely [R61] 02/04/2018 05/23/2020 Symptomatic menopausal or female climacteric st*05/15/2018 05/15/2018 Hx of hysterectomy [Z90.710] menopause age 43 with VMS s/p TH [N95.1] 05/15/2018 Hormone replacement therapy (HRT) [Z79.890] 05/15/2018 hx of low vitamin D [E55.9] Weight gain [R63.5] 12/31/2023 Screening for colon cancer [Z12.11] 07/10/2018 08/11/2018 Cervical radiculopathy [M54.12] 08/29/2018 Pain of left upper extremity [M79.602] 08/29/2018 05/23/2020 Muscle wasting and atrophy, not elsewhere class*09/03/2018 05/23/2020 Essential hypertension [I10] 05/23/2020 BMI 50.0-59.9, adult (HCC) [Z68.43] 10/25/2020 Rheumatoid arthritis (HCC) [M06.9] 11/19/2022 Type 2 diabetes mellitus with diabetic neuropat*12/19/2022 Encounter Status:Closed by JULES GONZALEZ on 01/04/25 PROGRESS Observed: 11/17/2024 1:02 PM Status: COMPLETED Source: [facility] HNO ID: [id number] Author: ?, ?, ? Service: ? Author Type: ? Type: Progress Notes Filed: 11/17/2024 13:05 Note Text: POPULATION HEALTH NAVIGATION OUTREACH Action/ Patient outreach for HCC gaps; AWV, DIABETIC EYE, BP, A1C, FLU,and KED. NEMOPTIC message sent to help closures. Reason for Outreach Care Gap/HCC or Scheduling Wellness Visits Care Gaps due: Medicare Annual Wellness Visit Controlling Blood Pressure Diabetic Eye Exam HBA1C KED Flu Vaccine Patient Contacted: Unable or unnecessary to reach patient: OwlTing ???hart message sent HCC related Navigation Signature: Nicole Doe November 17, 2024 1:04 PM CNPTOUTRROXANA Observed: 11/17/2024 12:00 AM Status: COMPLETED Source: [facility] Patient Outreach (NETNAV) SARAVANAN POWELL ([id number]) 1975 F Date Time Provider Department 11/17/24 SAMEER MATT During your visit today, we recorded the following information about you: Velasquezkeilafloresita NaderNicole 11/17/2024 1:05 PM Signed POPULATION HEALTH NAVIGATION OUTREACH Action/FYI Patient outreach for HCC gaps; AWV, DIABETIC EYE, BP, A1C, FLU,and KED. Tauliat message sent to help closures. Reason for Outreach Care Gap/HCC or Scheduling Wellness Visits Care Gaps due: Medicare Annual Wellness Visit Controlling Blood Pressure Diabetic Eye Exam HBA1C KED Flu Vaccine Patient Contacted: Unable or unnecessary to reach patient: MyChart message sent HCC related Navigation Signature: Nicole Sanders Nader November 17, 2024 1:04 PM Allergies As of Date: 11/17/2024 Noted Allergy Reaction CODEINE 10/12/2005 OZEMPIC (SEMAGLUTIDE) 05/18/2024 11 - Vomiting TRULICITY (DULAGLUTIDE) 05/18/2024 11 - Vomiting VICODIN (HYDROCODONE-ACETAMINOPHE*10/15/2005 11 - Vomiting Date Reviewed: 10/01/2024 Reviewed by: Soniya Patricio LPN - Fully Assessed Reason for Visit: Population Health Navigation Outreach [3910] Cmt: Penelope Atkins Prescriptions as of 11/17/2024 - promethazine-PHENYLephrine 6.25-5 mg/5 mL syrup Take 5 mL by mouth four times a day as needed (FOR CONGESTION AND POST NASAL DRIP; MAY CAUSE SEDATION ). - DULoxetine (CYMBALTA) 60 mg capsule Take 1 capsule by mouth once daily. - pregabalin (LYRICA) 150 mg capsule Take 1 capsule by mouth two times a day for 90 days. - meclizine (ANTIVERT) 25 mg tab Take 1 tablet by mouth three times a day as needed. - losartan (COZAAR) 50 mg tablet Take 1 tablet by mouth once daily. - metoprolol succinate ER (TOPROL XL) 50 mg 24 hr tablet Take 1 tablet by mouth once daily. - metFORMIN (GLUCOPHAGE) 1,000 mg tablet Take 1 tablet by mouth two times a day with meals. - linaGLIPtin (TRADJENTA) 5 mg tab Take 1 tablet by mouth once daily. - Lancets Test blood sugar(s) 2 times daily. Dx: Type 2 DM - Uncontrolled E11.65 Insulin: No - blood sugar diagnostic (BLOOD GLUCOSE TEST) test strip Test blood sugar(s) 2 times daily. Dx: Type 2 DM - Controlled E11.9 Insulin: No - buPROPion (WELLBUTRIN) 75 mg tablet Take 1 tablet by mouth two times a day. - glimepiride (AMARYL) 2 mg tablet Take 1 tablet by mouth daily with breakfast. - tiZANidine HCl (ZANAFLEX) 2 mg capsule Take 2 mg by mouth three times a day as needed for muscle spasm. - albuterol HFA (PROVENTIL HFA, VENTOLIN HFA) 90 mcg/actuation inhaler Inhale 2 Puffs as instructed every 4 hours as needed for wheezing/shortness of breath. - ondansetron orally disintegrating (ZOFRAN ODT) 8 mg disintegrating tablet Take 1 tablet by mouth every 8 hours as needed for nausea/vomiting. - folic acid 1 mg tablet Take 2 mg by mouth once daily. - methotrexate 2.5 mg tablet take 6 tablets by mouth ONCE WEEKLY - hydrOXYchloroQUINE (PLAQUENIL) 200 mg tablet Take 200 mg by mouth twice daily. - blood sugar diagnostic (BLOOD GLUCOSE TEST) test strip Test blood sugar(s) 1 times daily. Dx: Type 2 DM - Uncontrolled E11.65 Insulin: No - Lancets lancets Test blood sugar(s) 1 times daily. Dx: Type 2 DM - Uncontrolled E11.65 Insulin: No - CPAP Autopap 11-20 cm H2O, Heat Humidity, suitable mask, Lif[employer] supplies, opt Chinstrap, G47.33. - EMGALITY PEN 120 mg/mL pnij INJECT 120MG/ML PEN TWICE FOR THE 1ST MONTH AND ONCE A MONTH THEREAFTER - buprenorphine (BELBUCA) [address] 150 mcg between cheek and gum q 12 HR. - blood sugar diagnostic (ONETOUCH VERIO) test strip Test blood sugar(s) 2 times daily. Dx: 250.02. Insulin: No - traMADol (ULTRAM) 50 mg tablet Take 50 mg by mouth every 8 hours as needed. Problem List As Of Date 11/17/2024 Noted Resolved Migraine, unspecified, with intractable migrain*07/10/2006 05/15/2018 Dysmenorrhea [N94.6] 03/02/2008 09/14/2016 Left flank pain [R10.9] 08/31/2009 09/14/2016 Hydronephrosis [N13.30] 08/31/2009 09/14/2016 FB bladder/urethra [T19.1XXA, T19.0XXA] 09/13/2009 09/14/2016 Other and unspecified ovarian cyst [N83.209] 09/14/2009 05/15/2018 Endometriosis [N80.9] 11/29/2009 Restless Legs [G25.81] 12/27/2009 Numbness and tingling [R20.0, R20.2] 05/12/2010 09/14/2016 Fibromyalgia [M79.7] 10/17/2010 Obstructive sleep apnea syndrome [G47.33] 08/20/2013 Chronic pain [G89.29] 06/08/2014 Chronic back pain [M54.9, G89.29] 06/08/2014 09/14/2016 Type 2 diabetes mellitus without complication (*05/16/2015 05/11/2024 Low HDL (under 40) [E78.6] 01/02/2018 Obesity, Class III, BMI 40-49.9 (morbid obesity*01/16/2018 12/31/2023 Rosacea [L71.9] 02/04/2018 Post-hysterectomy menopause [E89.40, Z90.710] 02/04/2018 05/15/2018 Sweating profusely [R61] 02/04/2018 05/23/2020 Symptomatic menopausal or female climacteric st*05/15/2018 05/15/2018 Hx of hysterectomy [Z90.710] menopause age 43 with VMS s/p TH [N95.1] 05/15/2018 Hormone replacement therapy (HRT) [Z79.890] 05/15/2018 hx of low vitamin D [E55.9] Weight gain [R63.5] 12/31/2023 Screening for colon cancer [Z12.11] 07/10/2018 08/11/2018 Cervical radiculopathy [M54.12] 08/29/2018 Pain of left upper extremity [M79.602] 08/29/2018 05/23/2020 Muscle wasting and atrophy, not elsewhere class*09/03/2018 05/23/2020 Essential hypertension [I10] 05/23/2020 BMI 50.0-59.9, adult (HCC) [Z68.43] 10/25/2020 Rheumatoid arthritis (HCC) [M06.9] 11/19/2022 Type 2 diabetes mellitus with diabetic neuropat*12/19/2022 Encounter Status:Closed by NICOLE HARDING on 11/17/24 CNOV Observed: 10/01/2024 2:20 PM Status: COMPLETED Source: [facility] Office [facility] SARAVANAN POWELL ([id number]) 1975 F Date Time Provider Department 10/01/24 2:20 PM JOLLY HILL [facility] During your visit today, we recorded the following information about you: Pulse Respiration Blood pressure 81/minute 16/minute 119/84 Jolly Hill, PULP GRINDER.HAT IRONER 10/01/2024 2:35 PM Signed This is a 49 year old female who presents today with: Patient presents with: Follow Up HISTORY OF PRESENT ILLNESS: Saravanan Powell is a 49 year old female. Patient presents with: Follow Up Positive for RSV Left ear hurting and she hears popping when she lays down + More energy + head congestion Coughing with yellow productivity No body aches + chest congestion Full of phlegm No fevers Pain left upper lobe Painful sinuses Uses [employer] and they monitor blood sugars PAST MEDICAL HISTORY: PAST MEDICAL HISTORY Diagnosis Date Adjustment disorder with depressed mood Allergic rhinitis, cause unspecified Benign paroxysmal positional vertigo Chronic cholecystitis Diabetes (HCC) Dysmenorrhea Fibromyalgia pain meds per Dr. Batista Gestational diabetes Hormone replacement therapy (HRT) given premarin Hx of hysterectomy 09/2009 hx of low vitamin D 04/2010 persistently low 04/2018 21 neg celiac menopause s/p HT 05/15/201801/2018 elevated FSH 39 07/2018 nl DXA PMH - PAST MEDICAL HISTORY OF abnormal pap colp/ LEEP before 2001 Ken, MAUREEN Sleep apnea 05/2013 severe on sleep study not on tx Urinary tract infection, site not specified Takes Macrodantin postcoidal Weight gain PAST SURGICAL HISTORY Procedure Laterality Date COLONOSCOPY 07/2018 said benign polyp ?HP CYSTOSCOPY, W/INSERTION URETHRAL STENT 09/02/09 left ureteral stent LAPS SURG CHOLECYSTECTOMY W/CHOLANGIOGRAPHY 04/08/08 LEEP PROCEDURE (PRINTED CIRCUIT LAYOUT TAPER DEPT)_*FL 2001 abnormal pap PAST SURGICAL HISTORY OF 2003 anofistula repair PAST SURGICAL HISTORY OF right foot TOTAL ABDOMINAL HYSTERECT W/WO RMVL TUBE OVARY 09/26/2009 Hysterectomy, YANA ALLERGIES Codeine, Ozempic [Semaglutide], Trulicity [Dulaglutide], and Vicodin [Hydrocodone-Acetaminophen] MEDICATIONS Current Outpatient Medications Medication Sig DULoxetine (CYMBALTA) 60 mg capsule Take 1 capsule by mouth once daily. pregabalin (LYRICA) 150 mg capsule Take 1 capsule by mouth two times a day for 90 days. meclizine (ANTIVERT) 25 mg tab Take 1 tablet by mouth three times a day as needed. losartan (COZAAR) 50 mg tablet Take 1 tablet by mouth once daily. metoprolol succinate ER (TOPROL XL) 50 mg 24 hr tablet Take 1 tablet by mouth once daily. metFORMIN (GLUCOPHAGE) 1,000 mg tablet Take 1 tablet by mouth two times a day with meals. linaGLIPtin (TRADJENTA) 5 mg tab Take 1 tablet by mouth once daily. Lancets Test blood sugar(s) 2 times daily. Dx: Type 2 DM - Uncontrolled E11.65 Insulin: No blood sugar diagnostic (BLOOD GLUCOSE TEST) test strip Test blood sugar(s) 2 times daily. Dx: Type 2 DM - Controlled E11.9 Insulin: No buPROPion (WELLBUTRIN) 75 mg tablet Take 1 tablet by mouth two times a day. glimepiride (AMARYL) 2 mg tablet Take 1 tablet by mouth daily with breakfast. tiZANidine HCl (ZANAFLEX) 2 mg capsule Take 2 mg by mouth three times a day as needed for muscle spasm. albuterol HFA (PROVENTIL HFA, VENTOLIN HFA) 90 mcg/actuation inhaler Inhale 2 Puffs as instructed every 4 hours as needed for wheezing/shortness of breath. ondansetron orally disintegrating (ZOFRAN ODT) 8 mg disintegrating tablet Take 1 tablet by mouth every 8 hours as needed for nausea/vomiting. folic acid 1 mg tablet Take 2 mg by mouth once daily. methotrexate 2.5 mg tablet take 6 tablets by mouth ONCE WEEKLY hydrOXYchloroQUINE (PLAQUENIL) 200 mg tablet Take 200 mg by mouth twice daily. blood sugar diagnostic (BLOOD GLUCOSE TEST) test strip Test blood sugar(s) 1 times daily. Dx: Type 2 DM - Uncontrolled E11.65 Insulin: No Lancets lancets Test blood sugar(s) 1 times daily. Dx: Type 2 DM - Uncontrolled E11.65 Insulin: No CPAP Autopap 11-20 cm H2O, Heat Humidity, suitable mask, Lif[employer] supplies, opt Chinstrap, G47.33. EMGALITY PEN 120 mg/mL pnij INJECT 120MG/ML PEN TWICE FOR THE 1ST MONTH AND ONCE A MONTH THEREAFTER buprenorphine (BELBUCA) [address] 150 mcg between cheek and gum q 12 HR. blood sugar diagnostic (ONETOUCH VERIO) test strip Test blood sugar(s) 2 times daily. Dx: 250.02. Insulin: No traMADol (ULTRAM) 50 mg tablet Take 50 mg by mouth every 8 hours as needed. No current facility-administered medications for this visit. FAMILY HISTORY Problem Relation Age of Onset other (Healthy) Mother Diabetes Father had a stroke or [place]. No Known Problems Brother Cancer Maternal Grandmother lung first then bloodstream Cancer Maternal Grandfather lung Heart Paternal Grandmother Heart Paternal Grandfather other (healthy) Daughter other (healthy) Son Social History Tobacco Use Smoking status: Former Current packs/day: 0.00 Types: Cigarettes Quit date: 09/14/1998 Years since quittin.0 Smokeless tobacco: Never Substance Use Topics Alcohol use: No Drug use: No EXAM: BP 119/84 Pulse 81 Resp 16 LMP 09/18/2009 SpO2 97% PHYSICAL EXAM: Physical Exam Vitals reviewed. Constitutional: Appearance: Normal appearance. HENT: Head: Normocephalic. Right Ear: Tympanic membrane, ear canal and external ear normal. There is no impacted cerumen. Left Ear: Tympanic membrane, ear canal and external ear normal. There is no impacted cerumen. Nose: Congestion and rhinorrhea present. Mouth/Throat: Comments: Can't see past tongue- thick, full neck Cardiovascular: Rate and Rhythm: Normal rate and regular rhythm. Pulses: Normal pulses. Heart sounds: Normal heart sounds. Pulmonary: Effort: Pulmonary effort is normal. Breath sounds: Normal breath sounds. Comments: Pain with palpation in [place] Abdominal: General: Bowel sounds are normal. Palpations: Abdomen is soft. Tenderness: There is no abdominal tenderness. There is no guarding. Musculoskeletal: Comments: Moves all ext. And walks w/o assistive device Skin: General: Skin is warm and dry. Neurological: Mental Status: She is alert and oriented to person, place, and time. LABS: ASSESSMENT/PLAN: 1. Upper respiratory tract infection, unspecified type - ICD9: 465.9, ICD10: J06.9 (primary diagnosis) - Discussed viral etiology and rationale for treatment. - Symptomatic treatment with prn analgesia - Supportive care with fluids and rest - PROMETHAZINE-PHENYLEPHRINE 6.25 MG-5 MG/5 ML ORAL SYRUP - Doxycycline 100 mg 2 x day for 10 days 2. Type 2 diabetes mellitus without complication, with long-term current use of insulin ([facility]) - ICD9: 250.00, V58.67, ICD10: E11.9, Z79.4 - Uncontrolled - Continue current medications - Not testing blood sugars Discussed treatment plan and patient voices understanding. Patient's questions answered appropriately. Medications and potential side effects were discussed and patient voices understanding. Return to the office as scheduled or as needed for worsening/no improvement. SEBLE Doyle Jacqueline A, APRN.CNP 10/01/2024 2:34 PM Addendum 1) Doxycycline 100 mg 2 x day for 10 days 2) PROMETHAZINE-PHENYLEPHRINE 6.25 MG-5 MG/5 ML ORAL SYRUP 3) Follow up in 2 weeks if no improvement Allergies As of Date: 10/01/2024 Noted Allergy Reaction CODEINE 10/12/2005 OZEMPIC (SEMAGLUTIDE) 05/18/2024 11 - Vomiting TRULICITY (DULAGLUTIDE) 05/18/2024 11 - Vomiting VICODIN (HYDROCODONE-ACETAMINOPHE*10/15/2005 11 - Vomiting Date Reviewed: 10/01/2024 Reviewed by: Soniya Patricio LPN - Fully Assessed Reason for Visit: Follow Up [171] Primary Visit Diagnosis:Upper respiratory tract infection, unspecified type [J06.9] Other Visit Diagnosis:Type 2 diabetes mellitus without complication, with long-term current use of insulin ([facility]) [E11.9, Z79.4] Order(s):promethazine-PHENYLephrine 6.25-5 mg/5 mL syrupTake 5 mL by mouth four times a day as needed (FOR CONGESTION AND POST NASAL DRIP; MAY CAUSE SEDATION ).Disp: 180 mLRfl: 0 doxycycline hyclate (VIBRAMYCIN) 100 mg capsuleTake 1 capsule (100 mg) by mouth two times a day for 10 days.Disp: 20 capsuleRfl: 0 Prescriptions as of 10/01/2024 - promethazine-PHENYLephrine 6.25-5 mg/5 mL syrup Take 5 mL by mouth four times a day as needed (FOR CONGESTION AND POST NASAL DRIP; MAY CAUSE SEDATION ). - doxycycline hyclate (VIBRAMYCIN) 100 mg capsule Take 1 capsule (100 mg) by mouth two times a day for 10 days. - DULoxetine (CYMBALTA) 60 mg capsule Take 1 capsule by mouth once daily. - pregabalin (LYRICA) 150 mg capsule Take 1 capsule by mouth two times a day for 90 days. - meclizine (ANTIVERT) 25 mg tab Take 1 tablet by mouth three times a day as needed. - losartan (COZAAR) 50 mg tablet Take 1 tablet by mouth once daily. - metoprolol succinate ER (TOPROL XL) 50 mg 24 hr tablet Take 1 tablet by mouth once daily. - metFORMIN (GLUCOPHAGE) 1,000 mg tablet Take 1 tablet by mouth two times a day with meals. - linaGLIPtin (TRADJENTA) 5 mg tab Take 1 tablet by mouth once daily. - Lancets Test blood sugar(s) 2 times daily. Dx: Type 2 DM - Uncontrolled E11.65 Insulin: No - blood sugar diagnostic (BLOOD GLUCOSE TEST) test strip Test blood sugar(s) 2 times daily. Dx: Type 2 DM - Controlled E11.9 Insulin: No - buPROPion (WELLBUTRIN) 75 mg tablet Take 1 tablet by mouth two times a day. - glimepiride (AMARYL) 2 mg tablet Take 1 tablet by mouth daily with breakfast. - tiZANidine HCl (ZANAFLEX) 2 mg capsule Take 2 mg by mouth three times a day as needed for muscle spasm. - albuterol HFA (PROVENTIL HFA, VENTOLIN HFA) 90 mcg/actuation inhaler Inhale 2 Puffs as instructed every 4 hours as needed for wheezing/shortness of breath. - ondansetron orally disintegrating (ZOFRAN ODT) 8 mg disintegrating tablet Take 1 tablet by mouth every 8 hours as needed for nausea/vomiting. - folic acid 1 mg tablet Take 2 mg by mouth once daily. - methotrexate 2.5 mg tablet take 6 tablets by mouth ONCE WEEKLY - hydrOXYchloroQUINE (PLAQUENIL) 200 mg tablet Take 200 mg by mouth twice daily. - blood sugar diagnostic (BLOOD GLUCOSE TEST) test strip Test blood sugar(s) 1 times daily. Dx: Type 2 DM - Uncontrolled E11.65 Insulin: No - Lancets lancets Test blood sugar(s) 1 times daily. Dx: Type 2 DM - Uncontrolled E11.65 Insulin: No - CPAP Autopap 11-20 cm H2O, Heat Humidity, suitable mask, [employer] supplies, opt Chinstrap, G47.33. - EMGALITY PEN 120 mg/mL pnij INJECT 120MG/ML PEN TWICE FOR THE 1ST MONTH AND ONCE A MONTH THEREAFTER - buprenorphine (BELBUCA) [address] 150 mcg between cheek and gum q 12 HR. - blood sugar diagnostic (ONETOUCH VERIO) test strip Test blood sugar(s) 2 times daily. Dx: 250.02. Insulin: No - traMADol (ULTRAM) 50 mg tablet Take 50 mg by mouth every 8 hours as needed. Problem List As Of Date 10/01/2024 Noted Resolved Migraine, unspecified, with intractable migrain*07/10/2006 05/15/2018 Dysmenorrhea [N94.6] 03/02/2008 09/14/2016 Left flank pain [R10.9] 08/31/2009 09/14/2016 Hydronephrosis [N13.30] 08/31/2009 09/14/2016 FB bladder/urethra [T19.1XXA, T19.0XXA] 09/13/2009 09/14/2016 Other and unspecified ovarian cyst [N83.209] 09/14/2009 05/15/2018 Endometriosis [N80.9] 11/29/2009 Restless Legs [G25.81] 12/27/2009 Numbness and tingling [R20.0, R20.2] 05/12/2010 09/14/2016 Fibromyalgia [M79.7] 10/17/2010 Obstructive sleep apnea syndrome [G47.33] 08/20/2013 Chronic pain [G89.29] 06/08/2014 Chronic back pain [M54.9, G89.29] 06/08/2014 09/14/2016 Type 2 diabetes mellitus without complication (*05/16/2015 05/11/2024 Low HDL (under 40) [E78.6] 01/02/2018 Obesity, Class III, BMI 40-49.9 (morbid obesity*01/16/2018 12/31/2023 Rosacea [L71.9] 02/04/2018 Post-hysterectomy menopause [E89.40, Z90.710] 02/04/2018 05/15/2018 Sweating profusely [R61] 02/04/2018 05/23/2020 Symptomatic menopausal or female climacteric st*05/15/2018 05/15/2018 Hx of hysterectomy [Z90.710] menopause age 43 with VMS s/p TH [N95.1] 05/15/2018 Hormone replacement therapy (HRT) [Z79.890] 05/15/2018 hx of low vitamin D [E55.9] Weight gain [R63.5] 12/31/2023 Screening for colon cancer [Z12.11] 07/10/2018 08/11/2018 Cervical radiculopathy [M54.12] 08/29/2018 Pain of left upper extremity [M79.602] 08/29/2018 05/23/2020 Muscle wasting and atrophy, not elsewhere class*09/03/2018 05/23/2020 Essential hypertension [I10] 05/23/2020 BMI 50.0-59.9, adult (HCC) [Z68.43] 10/25/2020 Rheumatoid arthritis (HCC) [M06.9] 11/19/2022 Type 2 diabetes mellitus with diabetic neuropat*12/19/2022 Other instructions from your clinician: 1) Doxycycline 100 mg 2 x day for 10 days 2) PROMETHAZINE-PHENYLEPHRINE 6.25 MG-5 MG/5 ML ORAL SYRUP 3) Follow up in 2 weeks if no improvement Prescriptions ordered this encounter Disp Refills Start End PROMETHAZINE-PHENYLEPHRINE 6.25 MG-5* 180 * 0 10/01/2024 Route: ORAL Sig: Take 5 mL by mouth four times a day as needed (FOR CONGESTION AND POST NASAL DRIP; MAY CAUSE SEDATION ). DOXYCYCLINE HYCLATE 100 MG CAPSULE 20 c* 0 10/01/2024 10/11/2024 Route: ORAL Sig: Take 1 capsule (100 mg) by mouth two times a day for 10 days. Level of Service: OFFICE/OUTPATIENT ESTABLISHED LOW MDM 20 MIN [92711] Additional E/M codes: VISIT CPLX INHERENT EANDM ASSOC WITH MED * Disposition: Return in about 2 weeks (around 10/15/2024) for follow up on RSV. Follow-up and Disposition History for Encounter Date Provider Department Center 10/01/2024 [id number]-FIYOCRSHONNA HILL*[facility] Encounter Status:Closed by JOLLY HILL on 10/01/24 PROGRESS Observed: 10/01/2024 2:19 PM Status: COMPLETED Source: [facility] HNO ID: [id number] Author: JOLLY HILL APRN.HAT IRONER Service: ? Author Type: Nurse Practitioner Type: Progress Notes Filed: 10/01/2024 14:35 Note Text: This is a 49 year old female who presents today with: Patient presents with: Follow Up HISTORY OF PRESENT ILLNESS: Saravanan Powell is a 49 year old female. Patient presents with: Follow Up Positive for RSV Left ear hurting and she hears popping when she lays down + More energy + head congestion Coughing with yellow productivity No body aches + chest congestion Full of phlegm No fevers Pain left upper lobe Painful sinuses Uses [employer] and they monitor blood sugars PAST MEDICAL HISTORY: PAST MEDICAL HISTORY Diagnosis Date Adjustment disorder with depressed mood Allergic rhinitis, cause unspecified Benign paroxysmal positional vertigo Chronic cholecystitis Diabetes (HCC) Dysmenorrhea Fibromyalgia pain meds per Dr. Batista Gestational diabetes Hormone replacement therapy (HRT) given premarin Hx of hysterectomy 09/2009 hx of low vitamin D 04/2010 persistently low 04/2018 21 neg celiac menopause s/p HT 05/15/201801/2018 elevated FSH 39 07/2018 nl DXA PMH - PAST MEDICAL HISTORY OF abnormal pap colp/ LEEP before 2001 Ken, MAUREEN Sleep apnea 05/2013 severe on sleep study not on tx Urinary tract infection, site not specified Takes Macrodantin postcoidal Weight gain PAST SURGICAL HISTORY Procedure Laterality Date COLONOSCOPY 07/2018 said benign polyp ?HP CYSTOSCOPY, W/INSERTION URETHRAL STENT 09/02/09 left ureteral stent LAPS SURG CHOLECYSTECTOMY W/CHOLANGIOGRAPHY 04/08/08 LEEP PROCEDURE (PRINTED CIRCUIT LAYOUT TAPER DEPT)_*FL 2001 abnormal pap PAST SURGICAL HISTORY OF 2003 anofistula repair PAST SURGICAL HISTORY OF right foot TOTAL ABDOMINAL HYSTERECT W/WO RMVL TUBE OVARY 09/26/2009 Hysterectomy, YANA ALLERGIES Codeine, Ozempic [Semaglutide], Trulicity [Dulaglutide], and Vicodin [Hydrocodone-Acetaminophen] MEDICATIONS Current Outpatient Medications Medication Sig DULoxetine (CYMBALTA) 60 mg capsule Take 1 capsule by mouth once daily. pregabalin (LYRICA) 150 mg capsule Take 1 capsule by mouth two times a day for 90 days. meclizine (ANTIVERT) 25 mg tab Take 1 tablet by mouth three times a day as needed. losartan (COZAAR) 50 mg tablet Take 1 tablet by mouth once daily. metoprolol succinate ER (TOPROL XL) 50 mg 24 hr tablet Take 1 tablet by mouth once daily. metFORMIN (GLUCOPHAGE) 1,000 mg tablet Take 1 tablet by mouth two times a day with meals. linaGLIPtin (TRADJENTA) 5 mg tab Take 1 tablet by mouth once daily. Lancets Test blood sugar(s) 2 times daily. Dx: Type 2 DM - Uncontrolled E11.65 Insulin: No blood sugar diagnostic (BLOOD GLUCOSE TEST) test strip Test blood sugar(s) 2 times daily. Dx: Type 2 DM - Controlled E11.9 Insulin: No buPROPion (WELLBUTRIN) 75 mg tablet Take 1 tablet by mouth two times a day. glimepiride (AMARYL) 2 mg tablet Take 1 tablet by mouth daily with breakfast. tiZANidine HCl (ZANAFLEX) 2 mg capsule Take 2 mg by mouth three times a day as needed for muscle spasm. albuterol HFA (PROVENTIL HFA, VENTOLIN HFA) 90 mcg/actuation inhaler Inhale 2 Puffs as instructed every 4 hours as needed for wheezing/shortness of breath. ondansetron orally disintegrating (ZOFRAN ODT) 8 mg disintegrating tablet Take 1 tablet by mouth every 8 hours as needed for nausea/vomiting. folic acid 1 mg tablet Take 2 mg by mouth once daily. methotrexate 2.5 mg tablet take 6 tablets by mouth ONCE WEEKLY hydrOXYchloroQUINE (PLAQUENIL) 200 mg tablet Take 200 mg by mouth twice daily. blood sugar diagnostic (BLOOD GLUCOSE TEST) test strip Test blood sugar(s) 1 times daily. Dx: Type 2 DM - Uncontrolled E11.65 Insulin: No Lancets lancets Test blood sugar(s) 1 times daily. Dx: Type 2 DM - Uncontrolled E11.65 Insulin: No CPAP Autopap 11-20 cm H2O, Heat Humidity, suitable mask, [employer] supplies, opt Chinstrap, G47.33. EMGALITY PEN 120 mg/mL pnij INJECT 120MG/ML PEN TWICE FOR THE 1ST MONTH AND ONCE A MONTH THEREAFTER buprenorphine (BELBUCA) [address] 150 mcg between cheek and gum q 12 HR. blood sugar diagnostic (ONETOUCH VERIO) test strip Test blood sugar(s) 2 times daily. Dx: 250.02. Insulin: No traMADol (ULTRAM) 50 mg tablet Take 50 mg by mouth every 8 hours as needed. No current facility-administered medications for this visit. FAMILY HISTORY Problem Relation Age of Onset other (Healthy) Mother Diabetes Father had a stroke or [place]. No Known Problems Brother Cancer Maternal Grandmother lung first then bloodstream Cancer Maternal Grandfather lung Heart Paternal Grandmother Heart Paternal Grandfather other (healthy) Daughter other (healthy) Son Social History Tobacco Use Smoking status: Former Current packs/day: 0.00 Types: Cigarettes Quit date: 09/14/1998 Years since quittin.0 Smokeless tobacco: Never Substance Use Topics Alcohol use: No Drug use: No EXAM: BP 119/84 Pulse 81 Resp 16 LMP 09/18/2009 SpO2 97% PHYSICAL EXAM: Physical Exam Vitals reviewed. Constitutional: Appearance: Normal appearance. HENT: Head: Normocephalic. Right Ear: Tympanic membrane, ear canal and external ear normal. There is no impacted cerumen. Left Ear: Tympanic membrane, ear canal and external ear normal. There is no impacted cerumen. Nose: Congestion and rhinorrhea present. Mouth/Throat: Comments: Can't see past tongue- thick, full neck Cardiovascular: Rate and Rhythm: Normal rate and regular rhythm. Pulses: Normal pulses. Heart sounds: Normal heart sounds. Pulmonary: Effort: Pulmonary effort is normal. Breath sounds: Normal breath sounds. Comments: Pain with palpation in [place] Abdominal: General: Bowel sounds are normal. Palpations: Abdomen is soft. Tenderness: There is no abdominal tenderness. There is no guarding. Musculoskeletal: Comments: Moves all ext. And walks w/o assistive device Skin: General: Skin is warm and dry. Neurological: Mental Status: She is alert and oriented to person, place, and time. LABS: ASSESSMENT/PLAN: 1. Upper respiratory tract infection, unspecified type - ICD9: 465.9, ICD10: J06.9 (primary diagnosis) - Discussed viral etiology and rationale for treatment. - Symptomatic treatment with prn analgesia - Supportive care with fluids and rest - PROMETHAZINE-PHENYLEPHRINE 6.25 MG-5 MG/5 ML ORAL SYRUP - Doxycycline 100 mg 2 x day for 10 days 2. Type 2 diabetes mellitus without complication, with long-term current use of insulin ([facility]) - ICD9: 250.00, V58.67, ICD10: E11.9, Z79.4 - Uncontrolled - Continue current medications - Not testing blood sugars Discussed treatment plan and patient voices understanding. Patient's questions answered appropriately. Medications and potential side effects were discussed and patient voices understanding. Return to the office as scheduled or as needed for worsening/no improvement. Jolly Hill, RAJ.MANUEL LONG Observed: 09/23/2024 12:00 AM Status: COMPLETED Source: [facility] SARAVANAN POWELL ([id number]) 1975 F Date Time Provider Department 09/23/24 SAMEER MATT [facility] During your visit today, we recorded the following information about you: Olga Lidia Sadler LPN 09/23/2024 4:28 PM Signed Pt calling asking questions regarding RSV: 1) How long are you contagious? 2) Pt has RSV and babysit's granchildren. 14 month Grandchild started this and passed it to pt. Now sister of the 14 month old has it. Pt asking if she can still babysit and wear a mask. 3)Asking if the 14 month old can get reinfected? Pt not sure what to to here because her daughter can not afford to miss work. Please advise pt. REINA Pool William J, MD 09/23/2024 4:45 PM Signed Can be contagious while symptomatic. Can wash hands and wear mask. Still chance can get ill but will help If grand daughter recently had it, less chance of getting it again right away Kindra Boland MA 09/23/2024 4:49 PM Signed Informed. Kindra Boland MA Allergies As of Date: 09/23/2024 Noted Allergy Reaction CODEINE 10/12/2005 OZEMPIC (SEMAGLUTIDE) 05/18/2024 11 - Vomiting TRULICITY (DULAGLUTIDE) 05/18/2024 11 - Vomiting VICODIN (HYDROCODONE-ACETAMINOPHE*10/15/2005 11 - Vomiting Date Reviewed: 09/20/2024 Reviewed by: Nathalia Santoyo LPN - Fully Assessed Reason for Visit: questions regarding RSV [Other] Prescriptions as of 09/23/2024 - DULoxetine (CYMBALTA) 60 mg capsule Take 1 capsule by mouth once daily. - pregabalin (LYRICA) 150 mg capsule Take 1 capsule by mouth two times a day for 90 days. - methylPREDNISolone (MEDROL, RITA,) 4 mg Dose-Pack Follow dosing instructions, take with food. - meclizine (ANTIVERT) 25 mg tab Take 1 tablet by mouth three times a day as needed. - losartan (COZAAR) 50 mg tablet Take 1 tablet by mouth once daily. - metoprolol succinate ER (TOPROL XL) 50 mg 24 hr tablet Take 1 tablet by mouth once daily. - metFORMIN (GLUCOPHAGE) 1,000 mg tablet Take 1 tablet by mouth two times a day with meals. - linaGLIPtin (TRADJENTA) 5 mg tab Take 1 tablet by mouth once daily. - Lancets Test blood sugar(s) 2 times daily. Dx: Type 2 DM - Uncontrolled E11.65 Insulin: No - blood sugar diagnostic (BLOOD GLUCOSE TEST) test strip Test blood sugar(s) 2 times daily. Dx: Type 2 DM - Controlled E11.9 Insulin: No - buPROPion (WELLBUTRIN) 75 mg tablet Take 1 tablet by mouth two times a day. - glimepiride (AMARYL) 2 mg tablet Take 1 tablet by mouth daily with breakfast. - tiZANidine HCl (ZANAFLEX) 2 mg capsule Take 2 mg by mouth three times a day as needed for muscle spasm. - albuterol HFA (PROVENTIL HFA, VENTOLIN HFA) 90 mcg/actuation inhaler Inhale 2 Puffs as instructed every 4 hours as needed for wheezing/shortness of breath. - ondansetron orally disintegrating (ZOFRAN ODT) 8 mg disintegrating tablet Take 1 tablet by mouth every 8 hours as needed for nausea/vomiting. - folic acid 1 mg tablet Take 2 mg by mouth once daily. - methotrexate 2.5 mg tablet take 6 tablets by mouth ONCE WEEKLY - hydrOXYchloroQUINE (PLAQUENIL) 200 mg tablet Take 200 mg by mouth twice daily. - blood sugar diagnostic (BLOOD GLUCOSE TEST) test strip Test blood sugar(s) 1 times daily. Dx: Type 2 DM - Uncontrolled E11.65 Insulin: No - Lancets lancets Test blood sugar(s) 1 times daily. Dx: Type 2 DM - Uncontrolled E11.65 Insulin: No - CPAP Autopap 11-20 cm H2O, Heat Humidity, suitable mask, [employer] supplies, opt Chinstrap, G47.33. - EMGALITY PEN 120 mg/mL pnij INJECT 120MG/ML PEN TWICE FOR THE 1ST MONTH AND ONCE A MONTH THEREAFTER - buprenorphine (BELBUCA) [address] 150 mcg between cheek and gum q 12 HR. - blood sugar diagnostic (ONETOUCH VERIO) test strip Test blood sugar(s) 2 times daily. Dx: 250.02. Insulin: No - traMADol (ULTRAM) 50 mg tablet Take 50 mg by mouth every 8 hours as needed. Problem List As Of Date 09/23/2024 Noted Resolved Migraine, unspecified, with intractable migrain*07/10/2006 05/15/2018 Dysmenorrhea [N94.6] 03/02/2008 09/14/2016 Left flank pain [R10.9] 08/31/2009 09/14/2016 Hydronephrosis [N13.30] 08/31/2009 09/14/2016 FB bladder/urethra [T19.1XXA, T19.0XXA] 09/13/2009 09/14/2016 Other and unspecified ovarian cyst [N83.209] 09/14/2009 05/15/2018 Endometriosis [N80.9] 11/29/2009 Restless Legs [G25.81] 12/27/2009 Numbness and tingling [R20.0, R20.2] 05/12/2010 09/14/2016 Fibromyalgia [M79.7] 10/17/2010 Obstructive sleep apnea syndrome [G47.33] 08/20/2013 Chronic pain [G89.29] 06/08/2014 Chronic back pain [M54.9, G89.29] 06/08/2014 09/14/2016 Type 2 diabetes mellitus without complication (*05/16/2015 05/11/2024 Low HDL (under 40) [E78.6] 01/02/2018 Obesity, Class III, BMI 40-49.9 (morbid obesity*01/16/2018 12/31/2023 Rosacea [L71.9] 02/04/2018 Post-hysterectomy menopause [E89.40, Z90.710] 02/04/2018 05/15/2018 Sweating profusely [R61] 02/04/2018 05/23/2020 Symptomatic menopausal or female climacteric st*05/15/2018 05/15/2018 Hx of hysterectomy [Z90.710] menopause age 43 with VMS s/p TH [N95.1] 05/15/2018 Hormone replacement therapy (HRT) [Z79.890] 05/15/2018 hx of low vitamin D [E55.9] Weight gain [R63.5] 12/31/2023 Screening for colon cancer [Z12.11] 07/10/2018 08/11/2018 Cervical radiculopathy [M54.12] 08/29/2018 Pain of left upper extremity [M79.602] 08/29/2018 05/23/2020 Muscle wasting and atrophy, not elsewhere class*09/03/2018 05/23/2020 Essential hypertension [I10] 05/23/2020 BMI 50.0-59.9, adult (HCC) [Z68.43] 10/25/2020 Rheumatoid arthritis (HCC) [M06.9] 11/19/2022 Type 2 diabetes mellitus with diabetic neuropat*12/19/2022 Encounter Status:Closed by KINDRA BOLAND on 09/23/24 MERCEDES Observed: 09/22/2024 12:00 AM Status: COMPLETED Source: [facility] SARAVANAN POWELL ([id number]) 1975 F Date Time Provider Department 09/22/24 JOLLY HILL [facility] During your visit today, we recorded the following information about you: Mercy Mireles MA 09/22/2024 8:34 AM Signed Jolly Hill APRN.HAT IRONER [facility] Pool Please let patient know that she is positive for RSV. This is a respiratory virus. Rest, fluids, treat symptoms only. There is no cure, it will have to run its course. Mercy Mireles MA 09/22/2024 8:34 AM Signed Patient was made aware of the results. Patient verbalizes understanding. Mercy Mireles Ma Allergies As of Date: 09/22/2024 Noted Allergy Reaction CODEINE 10/12/2005 OZEMPIC (SEMAGLUTIDE) 05/18/2024 11 - Vomiting TRULICITY (DULAGLUTIDE) 05/18/2024 11 - Vomiting VICODIN (HYDROCODONE-ACETAMINOPHE*10/15/2005 11 - Vomiting Date Reviewed: 09/20/2024 Reviewed by: Nathalia Santoyo LPN - Fully Assessed Reason for Visit: Results [95] Prescriptions as of 09/22/2024 - methylPREDNISolone (MEDROL, RITA,) 4 mg Dose-Pack Follow dosing instructions, take with food. - meclizine (ANTIVERT) 25 mg tab Take 1 tablet by mouth three times a day as needed. - losartan (COZAAR) 50 mg tablet Take 1 tablet by mouth once daily. - metoprolol succinate ER (TOPROL XL) 50 mg 24 hr tablet Take 1 tablet by mouth once daily. - DULoxetine (CYMBALTA) 60 mg capsule Take 1 capsule by mouth once daily. - pregabalin (LYRICA) 150 mg capsule Take 1 capsule by mouth two times a day for 90 days. - metFORMIN (GLUCOPHAGE) 1,000 mg tablet Take 1 tablet by mouth two times a day with meals. - linaGLIPtin (TRADJENTA) 5 mg tab Take 1 tablet by mouth once daily. - Lancets Test blood sugar(s) 2 times daily. Dx: Type 2 DM - Uncontrolled E11.65 Insulin: No - blood sugar diagnostic (BLOOD GLUCOSE TEST) test strip Test blood sugar(s) 2 times daily. Dx: Type 2 DM - Controlled E11.9 Insulin: No - buPROPion (WELLBUTRIN) 75 mg tablet Take 1 tablet by mouth two times a day. - glimepiride (AMARYL) 2 mg tablet Take 1 tablet by mouth daily with breakfast. - tiZANidine HCl (ZANAFLEX) 2 mg capsule Take 2 mg by mouth three times a day as needed for muscle spasm. - albuterol HFA (PROVENTIL HFA, VENTOLIN HFA) 90 mcg/actuation inhaler Inhale 2 Puffs as instructed every 4 hours as needed for wheezing/shortness of breath. - ondansetron orally disintegrating (ZOFRAN ODT) 8 mg disintegrating tablet Take 1 tablet by mouth every 8 hours as needed for nausea/vomiting. - folic acid 1 mg tablet Take 2 mg by mouth once daily. - methotrexate 2.5 mg tablet take 6 tablets by mouth ONCE WEEKLY - hydrOXYchloroQUINE (PLAQUENIL) 200 mg tablet Take 200 mg by mouth twice daily. - blood sugar diagnostic (BLOOD GLUCOSE TEST) test strip Test blood sugar(s) 1 times daily. Dx: Type 2 DM - Uncontrolled .65 Insulin: No - Lancets lancets Test blood sugar(s) 1 times daily. Dx: Type 2 DM - Uncontrolled E11.65 Insulin: No - CPAP Autopap 11-20 cm H2O, Heat Humidity, suitable mask, Lifetime supplies, opt Chinstrap, G47.33. - EMGALITY PEN 120 mg/mL pnij INJECT 120MG/ML PEN TWICE FOR THE 1ST MONTH AND ONCE A MONTH THEREAFTER - buprenorphine (BELBUCA) [address] 150 mcg between cheek and gum q 12 HR. - blood sugar diagnostic (ONETOUCH VERIO) test strip Test blood sugar(s) 2 times daily. Dx: 250.02. Insulin: No - traMADol (ULTRAM) 50 mg tablet Take 50 mg by mouth every 8 hours as needed. Problem List As Of Date 09/22/2024 Noted Resolved Migraine, unspecified, with intractable migrain*07/10/2006 05/15/2018 Dysmenorrhea [N94.6] 03/02/2008 09/14/2016 Left flank pain [R10.9] 08/31/2009 09/14/2016 Hydronephrosis [N13.30] 08/31/2009 09/14/2016 FB bladder/urethra [T19.1XXA, T19.0XXA] 09/13/2009 09/14/2016 Other and unspecified ovarian cyst [N83.209] 09/14/2009 05/15/2018 Endometriosis [N80.9] 11/29/2009 Restless Legs [G25.81] 12/27/2009 Numbness and tingling [R20.0, R20.2] 05/12/2010 09/14/2016 Fibromyalgia [M79.7] 10/17/2010 Obstructive sleep apnea syndrome [G47.33] 08/20/2013 Chronic pain [G89.29] 06/08/2014 Chronic back pain [M54.9, G89.29] 06/08/2014 09/14/2016 Type 2 diabetes mellitus without complication (*05/16/2015 05/11/2024 Low HDL (under 40) [E78.6] 01/02/2018 Obesity, Class III, BMI 40-49.9 (morbid obesity*01/16/2018 12/31/2023 Rosacea [L71.9] 02/04/2018 Post-hysterectomy menopause [E89.40, Z90.710] 02/04/2018 05/15/2018 Sweating profusely [R61] 02/04/2018 05/23/2020 Symptomatic menopausal or female climacteric st*05/15/2018 05/15/2018 Hx of hysterectomy [Z90.710] menopause age 43 with VMS s/p TH [N95.1] 05/15/2018 Hormone replacement therapy (HRT) [Z79.890] 05/15/2018 hx of low vitamin D [E55.9] Weight gain [R63.5] 12/31/2023 Screening for colon cancer [Z12.11] 07/10/2018 08/11/2018 Cervical radiculopathy [M54.12] 08/29/2018 Pain of left upper extremity [M79.602] 08/29/2018 05/23/2020 Muscle wasting and atrophy, not elsewhere class*09/03/2018 05/23/2020 Essential hypertension [I10] 05/23/2020 BMI 50.0-59.9, adult ([facility]) [Z68.43] 10/25/2020 Rheumatoid arthritis (HCC) [M06.9] 11/19/2022 Type 2 diabetes mellitus with diabetic neuropat*12/19/2022 Encounter Status:Closed by MERCY MIRELES on 09/22/24 COVID AND INFLUENZA A/B AND RSV PCR, ROUTINE Observed: 09/21/2024 12:03 PM Status: F Source: [facility] SARS-COV-2 (AGENT OF COVID-1 9) RNA: Not detected INFLUENZA A RNA: Not detected INFLUENZA B RNA: Not detected RESPIRATORY SYNCYTIAL VIRUS (RSV) RNA: Detected Performed By: #### CVFLRS ## ## [facility] CLIA [id number] [address] [place] [address] OF [facility] Observed: 09/21/2024 11:40 AM Status: COMPLETED Source: [facility] Office Visit ([facility]) SARAVANAN POWELL ([id number]) 1975 F Date Time Provider Department 09/21/24 11:40 AM JOLLY HILL [facility] During your visit today, we recorded the following information about you: Temperature Pulse Blood pressure Weight 97.8 degrees 106/minute 110/72 134.7 kg Jolly Hill, PULP GRINDER.HAT IRONER 10/01/2024 2:12 PM Addendum This is a 49 year old female who presents today with: Patient presents with: Acute Visit: Head congestion, ear pressure, chest congestion, some shortness of breath. Dizziness with walking long distance. HISTORY OF PRESENT ILLNESS: Saravanan Powell is a 49 year old female. Patient presents with: Acute Visit: Head congestion, ear pressure, chest congestion, some shortness of breath. Dizziness with walking long distance. Treated for UTI a couple weeks ago. Ran right into head and chest congestion. Both ears are aching. + headaches No sore throat. Nauseated, no vomiting Diarrhea Chest congestion, productive but hasn't seen it Unsure if wheezing Some PHELPS No body aches At least a week Has gone through 2 bottles of Delsym DM BSS 183 the other day PAST MEDICAL HISTORY: PAST MEDICAL HISTORY Diagnosis Date Adjustment disorder with depressed mood Allergic rhinitis, cause unspecified Benign paroxysmal positional vertigo Chronic cholecystitis Diabetes (HCC) Dysmenorrhea Fibromyalgia pain meds per Dr. Batista Gestational diabetes Hormone replacement therapy (HRT) given premarin Hx of hysterectomy 09/2009 hx of low vitamin D 04/2010 persistently low 04/2018 19 neg celiac menopause s/p HT 05/15/201801/2018 elevated FSH 39 07/2018 nl DXA PMH - PAST MEDICAL HISTORY OF abnormal pap colp/ [place] Sleep apnea 05/2013 severe on sleep study not on tx Urinary tract infection, site not specified Takes Macrodantin postcoidal Weight gain PAST SURGICAL HISTORY Procedure Laterality Date COLONOSCOPY 07/2018 said benign polyp ?HP CYSTOSCOPY, W/INSERTION URETHRAL STENT 09/02/09 left ureteral stent LAPS SURG CHOLECYSTECTOMY W/CHOLANGIOGRAPHY 04/08/08 LEEP PROCEDURE (PRINTED CIRCUIT LAYOUT TAPER DEPT)_*FL 2001 abnormal pap PAST SURGICAL HISTORY OF 2003 anofistula repair PAST SURGICAL HISTORY OF right foot TOTAL ABDOMINAL HYSTERECT W/WO RMVL TUBE OVARY 09/26/2009 Hysterectomy, YANA ALLERGIES Codeine, Ozempic [Semaglutide], Trulicity [Dulaglutide], and Vicodin [Hydrocodone-Acetaminophen] MEDICATIONS Current Outpatient Medications Medication Sig meclizine (ANTIVERT) 25 mg tab Take 1 tablet by mouth three times a day as needed. losartan (COZAAR) 50 mg tablet Take 1 tablet by mouth once daily. metoprolol succinate ER (TOPROL XL) 50 mg 24 hr tablet Take 1 tablet by mouth once daily. DULoxetine (CYMBALTA) 60 mg capsule Take 1 capsule by mouth once daily. pregabalin (LYRICA) 150 mg capsule Take 1 capsule by mouth two times a day for 90 days. metFORMIN (GLUCOPHAGE) 1,000 mg tablet Take 1 tablet by mouth two times a day with meals. linaGLIPtin (TRADJENTA) 5 mg tab Take 1 tablet by mouth once daily. Lancets Test blood sugar(s) 2 times daily. Dx: Type 2 DM - Uncontrolled E11.65 Insulin: No blood sugar diagnostic (BLOOD GLUCOSE TEST) test strip Test blood sugar(s) 2 times daily. Dx: Type 2 DM - Controlled E11.9 Insulin: No buPROPion (WELLBUTRIN) 75 mg tablet Take 1 tablet by mouth two times a day. glimepiride (AMARYL) 2 mg tablet Take 1 tablet by mouth daily with breakfast. tiZANidine HCl (ZANAFLEX) 2 mg capsule Take 2 mg by mouth three times a day as needed for muscle spasm. albuterol HFA (PROVENTIL HFA, VENTOLIN HFA) 90 mcg/actuation inhaler Inhale 2 Puffs as instructed every 4 hours as needed for wheezing/shortness of breath. ondansetron orally disintegrating (ZOFRAN ODT) 8 mg disintegrating tablet Take 1 tablet by mouth every 8 hours as needed for nausea/vomiting. folic acid 1 mg tablet Take 2 mg by mouth once daily. methotrexate 2.5 mg tablet take 6 tablets by mouth ONCE WEEKLY hydrOXYchloroQUINE (PLAQUENIL) 200 mg tablet Take 200 mg by mouth twice daily. blood sugar diagnostic (BLOOD GLUCOSE TEST) test strip Test blood sugar(s) 1 times daily. Dx: Type 2 DM - Uncontrolled E11.65 Insulin: No Lancets lancets Test blood sugar(s) 1 times daily. Dx: Type 2 DM - Uncontrolled E11.65 Insulin: No CPAP Autopap 11-20 cm H2O, Heat Humidity, suitable mask, Lif[employer] supplies, opt Chinstrap, G47.33. EMGALITY PEN 120 mg/mL pnij INJECT 120MG/ML PEN TWICE FOR THE 1ST MONTH AND ONCE A MONTH THEREAFTER buprenorphine (BELBUCA) [address] 150 mcg between cheek and gum q 12 HR. blood sugar diagnostic (ONETOUCH VERIO) test strip Test blood sugar(s) 2 times daily. Dx: 250.02. Insulin: No traMADol (ULTRAM) 50 mg tablet Take 50 mg by mouth every 8 hours as needed. No current facility-administered medications for this visit. FAMILY HISTORY Problem Relation Age of Onset other (Healthy) Mother Diabetes Father had a stroke or [place]. No Known Problems Brother Cancer Maternal Grandmother lung first then bloodstream Cancer Maternal Grandfather lung Heart Paternal Grandmother Heart Paternal Grandfather other (healthy) Daughter other (healthy) Son Social History Tobacco Use Smoking status: Former Current packs/day: 0.00 Types: Cigarettes Quit date: 09/14/1998 Years since quittin.0 Smokeless tobacco: Never Substance Use Topics Alcohol use: No Drug use: No EXAM: BP 110/72 Pulse 106 Temp 36.6 ?C (97.8 ?F) (Temporal Artery) Wt 134.7 kg (297 lb) LMP 09/18/2009 SpO2 98% BMI 52.61 kg/m? PHYSICAL EXAM: Physical Exam Vitals reviewed. Constitutional: Appearance: She is obese. She is ill-appearing. HENT: Head: Normocephalic. Right Ear: Tympanic membrane and external ear normal. There is no impacted cerumen. Left Ear: Tympanic membrane and external ear normal. There is no impacted cerumen. Ears: Comments: Ear canals red Nose: Rhinorrhea present. No congestion. Mouth/Throat: Mouth: Mucous membranes are dry. Comments: Think full neck Neck: Vascular: No carotid bruit. Comments: Thick, full neck Cardiovascular: Rate and Rhythm: Normal rate and regular rhythm. Pulses: Normal pulses. Heart sounds: Normal heart sounds. Pulmonary: Effort: Pulmonary effort is normal. Breath sounds: Normal breath sounds. Abdominal: General: Bowel sounds are normal. Palpations: Abdomen is soft. Tenderness: There is no abdominal tenderness. There is no guarding. Musculoskeletal: Comments: Generalized weakness Lymphadenopathy: Cervical: No cervical adenopathy. Skin: General: Skin is warm and dry. Neurological: Mental Status: She is alert and oriented to person, place, and time. Comments: Lightheaded, worse with walking Psychiatric: Mood and Affect: Mood normal. Behavior: Behavior normal. 100/76 sitting, 84/70 standing LABS: ASSESSMENT/PLAN: 1. Upper respiratory tract infection, unspecified type - ICD9: 465.9, ICD10: J06.9 - Discussed viral etiology and rationale for treatment. - Symptomatic treatment with prn analgesia - Supportive care with fluids and rest - COVID AND INFLUENZA A/B AND RSV PCR, ROUTINE - METHYLPREDNISOLONE 4 MG TABLETS IN A DOSE PACK - Guaifenesin OTC SEBLE Doyle Jacqueline A, APRN.CNP 09/21/2024 11:56 AM Signed - COVID AND INFLUENZA A/B AND RSV PCR, ROUTINE - METHYLPREDNISOLONE 4 MG TABLETS IN A DOSE PACK - Guaifenesin OTC highest amount you can get in - Rest, fluids - Drink Gatorade, liquid IV, or Pedialyte - Follow up in 2 weeks Jolly Hill APRN.CNP 09/22/2024 7:59 AM Signed Please let patient know that she is positive for RSV. This is a respiratory virus. Rest, fluids, treat symptoms only. There is no cure, it will have to run its course. Allergies As of Date: 09/21/2024 Noted Allergy Reaction CODEINE 10/12/2005 OZEMPIC (SEMAGLUTIDE) 05/18/2024 11 - Vomiting TRULICITY (DULAGLUTIDE) 05/18/2024 11 - Vomiting VICODIN (HYDROCODONE-ACETAMINOPHE*10/15/2005 11 - Vomiting Date Reviewed: 09/20/2024 Reviewed by: Nathalia Santoyo LPN - Fully Assessed Reason for Visit: Acute Visit [896] Cmt: Head congestion, ear pressure, chest congestion, some shortness of breath. Dizziness with walking long distance. Primary Visit Diagnosis:Upper respiratory tract infection, unspecified type [J06.9] Order(s):COVID AND INFLUENZA A/B AND RSV PCR, ROUTINE [SQCVFLRS] Order #: [id number]. #:[id number] [] methylPREDNISolone (MEDROL, IRTA,) 4 mg Dose-PackFollow dosing instructions, take with food.Disp: 21 tabletRfl: 0 Prescriptions as of 10/01/2024 - DULoxetine (CYMBALTA) 60 mg capsule Take 1 capsule by mouth once daily. - pregabalin (LYRICA) 150 mg capsule Take 1 capsule by mouth two times a day for 90 days. - meclizine (ANTIVERT) 25 mg tab Take 1 tablet by mouth three times a day as needed. - losartan (COZAAR) 50 mg tablet Take 1 tablet by mouth once daily. - metoprolol succinate ER (TOPROL XL) 50 mg 24 hr tablet Take 1 tablet by mouth once daily. - metFORMIN (GLUCOPHAGE) 1,000 mg tablet Take 1 tablet by mouth two times a day with meals. - linaGLIPtin (TRADJENTA) 5 mg tab Take 1 tablet by mouth once daily. - Lancets Test blood sugar(s) 2 times daily. Dx: Type 2 DM - Uncontrolled E11.65 Insulin: No - blood sugar diagnostic (BLOOD GLUCOSE TEST) test strip Test blood sugar(s) 2 times daily. Dx: Type 2 DM - Controlled E11.9 Insulin: No - buPROPion (WELLBUTRIN) 75 mg tablet Take 1 tablet by mouth two times a day. - glimepiride (AMARYL) 2 mg tablet Take 1 tablet by mouth daily with breakfast. - tiZANidine HCl (ZANAFLEX) 2 mg capsule Take 2 mg by mouth three times a day as needed for muscle spasm. - albuterol HFA (PROVENTIL HFA, VENTOLIN HFA) 90 mcg/actuation inhaler Inhale 2 Puffs as instructed every 4 hours as needed for wheezing/shortness of breath. - ondansetron orally disintegrating (ZOFRAN ODT) 8 mg disintegrating tablet Take 1 tablet by mouth every 8 hours as needed for nausea/vomiting. - folic acid 1 mg tablet Take 2 mg by mouth once daily. - methotrexate 2.5 mg tablet take 6 tablets by mouth ONCE WEEKLY - hydrOXYchloroQUINE (PLAQUENIL) 200 mg tablet Take 200 mg by mouth twice daily. - blood sugar diagnostic (BLOOD GLUCOSE TEST) test strip Test blood sugar(s) 1 times daily. Dx: Type 2 DM - Uncontrolled E11.65 Insulin: No - Lancets lancets Test blood sugar(s) 1 times daily. Dx: Type 2 DM - Uncontrolled E11.65 Insulin: No - CPAP Autopap 11-20 cm H2O, Heat Humidity, suitable mask, Lif[employer] supplies, opt Chinstrap, G47.33. - EMGALITY PEN 120 mg/mL pnij INJECT 120MG/ML PEN TWICE FOR THE 1ST MONTH AND ONCE A MONTH THEREAFTER - buprenorphine (BELBUCA) [address] 150 mcg between cheek and gum q 12 HR. - blood sugar diagnostic (ONETOUCH VERIO) test strip Test blood sugar(s) 2 times daily. Dx: 250.02. Insulin: No - traMADol (ULTRAM) 50 mg tablet Take 50 mg by mouth every 8 hours as needed. Problem List As Of Date 09/21/2024 Noted Resolved Migraine, unspecified, with intractable migrain*07/10/2006 05/15/2018 Dysmenorrhea [N94.6] 03/02/2008 09/14/2016 Left flank pain [R10.9] 08/31/2009 09/14/2016 Hydronephrosis [N13.30] 08/31/2009 09/14/2016 FB bladder/urethra [T19.1XXA, T19.0XXA] 09/13/2009 09/14/2016 Other and unspecified ovarian cyst [N83.209] 09/14/2009 05/15/2018 Endometriosis [N80.9] 11/29/2009 Restless Legs [G25.81] 12/27/2009 Numbness and tingling [R20.0, R20.2] 05/12/2010 09/14/2016 Fibromyalgia [M79.7] 10/17/2010 Obstructive sleep apnea syndrome [G47.33] 08/20/2013 Chronic pain [G89.29] 06/08/2014 Chronic back pain [M54.9, G89.29] 06/08/2014 09/14/2016 Type 2 diabetes mellitus without complication (*05/16/2015 05/11/2024 Low HDL (under 40) [E78.6] 01/02/2018 Obesity, Class III, BMI 40-49.9 (morbid obesity*01/16/2018 12/31/2023 Rosacea [L71.9] 02/04/2018 Post-hysterectomy menopause [E89.40, Z90.710] 02/04/2018 05/15/2018 Sweating profusely [R61] 02/04/2018 05/23/2020 Symptomatic menopausal or female climacteric st*05/15/2018 05/15/2018 Hx of hysterectomy [Z90.710] menopause age 43 with VMS s/p TH [N95.1] 05/15/2018 Hormone replacement therapy (HRT) [Z79.890] 05/15/2018 hx of low vitamin D [E55.9] Weight gain [R63.5] 12/31/2023 Screening for colon cancer [Z12.11] 07/10/2018 08/11/2018 Cervical radiculopathy [M54.12] 08/29/2018 Pain of left upper extremity [M79.602] 08/29/2018 05/23/2020 Muscle wasting and atrophy, not elsewhere class*09/03/2018 05/23/2020 Essential hypertension [I10] 05/23/2020 BMI 50.0-59.9, adult (HCC) [Z68.43] 10/25/2020 Rheumatoid arthritis (HCC) [M06.9] 11/19/2022 Type 2 diabetes mellitus with diabetic neuropat*12/19/2022 Other instructions from your clinician: - COVID AND INFLUENZA A/B AND RSV PCR, ROUTINE - METHYLPREDNISOLONE 4 MG TABLETS IN A DOSE PACK - Guaifenesin OTC highest amount you can get in - Rest, fluids - Drink Gatorade, liquid IV, or Pedialyte - Follow up in 2 weeks Prescriptions ordered this encounter Disp Refills Start End METHYLPREDNISOLONE 4 MG TABLETS IN A* 21 t* 0 09/21/2024 09/27/2024 Sig: Follow dosing instructions, take with food. Level of Service: OFFICE/OUTPATIENT ESTABLISHED LOW MDM 20 MIN [66923] Additional E/M codes: VISIT CPLX INHERENT EANDM ASSOC WITH MED * Disposition: Return in about 2 weeks (around 10/05/2024) for follow up on URI. Follow-up and Disposition History for Encounter Date Provider Department Center 09/21/2024 [id number]-CQUVODSHONNA HILL*[facility] Encounter Status:Closed by JOLLY HILL on 09/21/24 PROGRESS Observed: 09/21/2024 11:37 AM Status: COMPLETED [facility] [id number] Author: JOLLY HILL APRN.HAT IRONER Service: ? Author Type: Nurse Practitioner Type: Progress Notes Filed: 10/01/2024 14:12 Note Text: This is a 49 year old female who presents today with: Patient presents with: Acute Visit: Head congestion, ear pressure, chest congestion, some shortness of breath. Dizziness with walking long distance. HISTORY OF PRESENT ILLNESS: Saravanan Powell is a 49 year old female. Patient presents with: Acute Visit: Head congestion, ear pressure, chest congestion, some shortness of breath. Dizziness with walking long distance. Treated for UTI a couple weeks ago. Ran right into head and chest congestion. Both ears are aching. + headaches No sore throat. Nauseated, no vomiting Diarrhea Chest congestion, productive but hasn't seen it Unsure if wheezing Some PHELPS No body aches At least a week Has gone through 2 bottles of Delsym DM BSS 183 the other day PAST MEDICAL HISTORY: PAST MEDICAL HISTORY Diagnosis Date Adjustment disorder with depressed mood Allergic rhinitis, cause unspecified Benign paroxysmal positional vertigo Chronic cholecystitis Diabetes (HCC) Dysmenorrhea Fibromyalgia pain meds per Dr. Batista Gestational diabetes Hormone replacement therapy (HRT) given premarin Hx of hysterectomy 09/2009 hx of low vitamin D 04/2010 persistently low 04/2018 21 neg celiac menopause s/p HT 05/15/201801/2018 elevated FSH 39 07/2018 nl DXA PMH - PAST MEDICAL HISTORY OF abnormal pap colp/ LEEP before 2001 [place], [place] Sleep apnea 05/2013 severe on sleep study not on tx Urinary tract infection, site not specified Takes Macrodantin postcoidal Weight gain PAST SURGICAL HISTORY Procedure Laterality Date COLONOSCOPY 07/2018 said benign polyp ?HP CYSTOSCOPY, W/INSERTION URETHRAL STENT 09/02/09 left ureteral stent LAPS SURG CHOLECYSTECTOMY W/CHOLANGIOGRAPHY 04/08/08 LEEP PROCEDURE (PRINTED CIRCUIT LAYOUT TAPER DEPT)_*FL 2001 abnormal pap PAST SURGICAL HISTORY OF 2003 anofistula repair PAST SURGICAL HISTORY OF right foot TOTAL ABDOMINAL HYSTERECT W/WO RMVL TUBE OVARY 09/26/2009 Hysterectomy, YANA ALLERGIES Codeine, Ozempic [Semaglutide], Trulicity [Dulaglutide], and Vicodin [Hydrocodone-Acetaminophen] MEDICATIONS Current Outpatient Medications Medication Sig meclizine (ANTIVERT) 25 mg tab Take 1 tablet by mouth three times a day as needed. losartan (COZAAR) 50 mg tablet Take 1 tablet by mouth once daily. metoprolol succinate ER (TOPROL XL) 50 mg 24 hr tablet Take 1 tablet by mouth once daily. DULoxetine (CYMBALTA) 60 mg capsule Take 1 capsule by mouth once daily. pregabalin (LYRICA) 150 mg capsule Take 1 capsule by mouth two times a day for 90 days. metFORMIN (GLUCOPHAGE) 1,000 mg tablet Take 1 tablet by mouth two times a day with meals. linaGLIPtin (TRADJENTA) 5 mg tab Take 1 tablet by mouth once daily. Lancets Test blood sugar(s) 2 times daily. Dx: Type 2 DM - Uncontrolled E11.65 Insulin: No blood sugar diagnostic (BLOOD GLUCOSE TEST) test strip Test blood sugar(s) 2 times daily. Dx: Type 2 DM - Controlled E11.9 Insulin: No buPROPion (WELLBUTRIN) 75 mg tablet Take 1 tablet by mouth two times a day. glimepiride (AMARYL) 2 mg tablet Take 1 tablet by mouth daily with breakfast. tiZANidine HCl (ZANAFLEX) 2 mg capsule Take 2 mg by mouth three times a day as needed for muscle spasm. albuterol HFA (PROVENTIL HFA, VENTOLIN HFA) 90 mcg/actuation inhaler Inhale 2 Puffs as instructed every 4 hours as needed for wheezing/shortness of breath. ondansetron orally disintegrating (ZOFRAN ODT) 8 mg disintegrating tablet Take 1 tablet by mouth every 8 hours as needed for nausea/vomiting. folic acid 1 mg tablet Take 2 mg by mouth once daily. methotrexate 2.5 mg tablet take 6 tablets by mouth ONCE WEEKLY hydrOXYchloroQUINE (PLAQUENIL) 200 mg tablet Take 200 mg by mouth twice daily. blood sugar diagnostic (BLOOD GLUCOSE TEST) test strip Test blood sugar(s) 1 times daily. Dx: Type 2 DM - Uncontrolled E11.65 Insulin: No Lancets lancets Test blood sugar(s) 1 times daily. Dx: Type 2 DM - Uncontrolled E11.65 Insulin: No CPAP Autopap 11-20 cm H2O, Heat Humidity, suitable mask, Lif[employer] supplies, opt Chinstrap, G47.33. EMGALITY PEN 120 mg/mL pnij INJECT 120MG/ML PEN TWICE FOR THE 1ST MONTH AND ONCE A MONTH THEREAFTER buprenorphine (BELBUCA) [address] 150 mcg between cheek and gum q 12 HR. blood sugar diagnostic (ONETOUCH VERIO) test strip Test blood sugar(s) 2 times daily. Dx: 250.02. Insulin: No traMADol (ULTRAM) 50 mg tablet Take 50 mg by mouth every 8 hours as needed. No current facility-administered medications for this visit. FAMILY HISTORY Problem Relation Age of Onset other (Healthy) Mother Diabetes Father had a stroke or [place]. No Known Problems Brother Cancer Maternal Grandmother lung first then bloodstream Cancer Maternal Grandfather lung Heart Paternal Grandmother Heart Paternal Grandfather other (healthy) Daughter other (healthy) Son Social History Tobacco Use Smoking status: Former Current packs/day: 0.00 Types: Cigarettes Quit date: 09/14/1998 Years since quittin.0 Smokeless tobacco: Never Substance Use Topics Alcohol use: No Drug use: No EXAM: BP 110/72 Pulse 106 Temp 36.6 ?C (97.8 ?F) (Temporal Artery) Wt 134.7 kg (297 lb) LMP 09/18/2009 SpO2 98% BMI 52.61 kg/m? PHYSICAL EXAM: Physical Exam Vitals reviewed. Constitutional: Appearance: She is obese. She is ill-appearing. HENT: Head: Normocephalic. Right Ear: Tympanic membrane and external ear normal. There is no impacted cerumen. Left Ear: Tympanic membrane and external ear normal. There is no impacted cerumen. Ears: Comments: Ear canals red Nose: Rhinorrhea present. No congestion. Mouth/Throat: Mouth: Mucous membranes are dry. Comments: Think full neck Neck: Vascular: No carotid bruit. Comments: Thick, full neck Cardiovascular: Rate and Rhythm: Normal rate and regular rhythm. Pulses: Normal pulses. Heart sounds: Normal heart sounds. Pulmonary: Effort: Pulmonary effort is normal. Breath sounds: Normal breath sounds. Abdominal: General: Bowel sounds are normal. Palpations: Abdomen is soft. Tenderness: There is no abdominal tenderness. There is no guarding. Musculoskeletal: Comments: Generalized weakness Lymphadenopathy: Cervical: No cervical adenopathy. Skin: General: Skin is warm and dry. Neurological: Mental Status: She is alert and oriented to person, place, and time. Comments: Lightheaded, worse with walking Psychiatric: Mood and Affect: Mood normal. Behavior: Behavior normal. 100/76 sitting, 84/70 standing LABS: ASSESSMENT/PLAN: 1. Upper respiratory tract infection, unspecified type - ICD9: 465.9, ICD10: J06.9 - Discussed viral etiology and rationale for treatment. - Symptomatic treatment with prn analgesia - Supportive care with fluids and rest - COVID AND INFLUENZA A/B AND RSV PCR, ROUTINE - METHYLPREDNISOLONE 4 MG TABLETS IN A DOSE PACK - Guaifenesin OTC Jolly Hill APRN.CNP PROGRESS Observed: 09/20/2024 1:26 PM Status: COMPLETED Source: [facility] HNO ID: [id number] Author: ANA FOX APRN.CNP Service: ? Author Type: Nurse Practitioner Type: Progress Notes Filed: 09/20/2024 13:38 Note Text: Patient came in with complaints of sick symptoms for 2 weeks.'s. Patient mentioned that she is having a heavy pressure feeling over her heart. Patient says it just feels so heavy. At this time due to specific complaint patient is being sent to the emergency room for an evaluation. Patient was agreeable. There was somebody here with her they will take her. CNOV Observed: 09/20/2024 1:15 PM Status: COMPLETED Source: [facility] Office Visit (WSTR) SARAVANAN POWELL ([id number]) 1975 F Date Time Provider Department 09/20/24 1:15 PM [facility] During your visit today, we recorded the following information about you: Temperature Pulse Respiration Blood pressure 97.8 degrees 101/minute 18/minute 110/64 Weight 131.2 kg Ana Fox APRN.HAT IRONER 09/20/2024 1:38 PM Signed Patient came in with complaints of sick symptoms for 2 weeks.'s. Patient mentioned that she is having a heavy pressure feeling over her heart. Patient says it just feels so heavy. At this time due to specific complaint patient is being sent to the emergency room for an evaluation. Patient was agreeable. There was somebody here with her they will take her. Allergies As of Date: 09/20/2024 Noted Allergy Reaction CODEINE 10/12/2005 OZEMPIC (SEMAGLUTIDE) 05/18/2024 11 - Vomiting TRULICITY (DULAGLUTIDE) 05/18/2024 11 - Vomiting VICODIN (HYDROCODONE-ACETAMINOPHE*10/15/2005 11 - Vomiting Date Reviewed: 09/20/2024 Reviewed by: Nathalia Santoyo LPN - Fully Assessed Reason for Visit: Cough [28] Cmt: Cough, sinus pain and pressure, chest congestion, chills, and ear pain x 2 weeks Primary Visit Diagnosis:Chest pressure [R07.89] Prescriptions as of 09/20/2024 - meclizine (ANTIVERT) 25 mg tab Take 1 tablet by mouth three times a day as needed. - losartan (COZAAR) 50 mg tablet Take 1 tablet by mouth once daily. - metoprolol succinate ER (TOPROL XL) 50 mg 24 hr tablet Take 1 tablet by mouth once daily. - DULoxetine (CYMBALTA) 60 mg capsule Take 1 capsule by mouth once daily. - pregabalin (LYRICA) 150 mg capsule Take 1 capsule by mouth two times a day for 90 days. - metFORMIN (GLUCOPHAGE) 1,000 mg tablet Take 1 tablet by mouth two times a day with meals. - linaGLIPtin (TRADJENTA) 5 mg tab Take 1 tablet by mouth once daily. - Lancets Test blood sugar(s) 2 times daily. Dx: Type 2 DM - Uncontrolled E11.65 Insulin: No - blood sugar diagnostic (BLOOD GLUCOSE TEST) test strip Test blood sugar(s) 2 times daily. Dx: Type 2 DM - Controlled E11.9 Insulin: No - buPROPion (WELLBUTRIN) 75 mg tablet Take 1 tablet by mouth two times a day. - glimepiride (AMARYL) 2 mg tablet Take 1 tablet by mouth daily with breakfast. - tiZANidine HCl (ZANAFLEX) 2 mg capsule Take 2 mg by mouth three times a day as needed for muscle spasm. - albuterol HFA (PROVENTIL HFA, VENTOLIN HFA) 90 mcg/actuation inhaler Inhale 2 Puffs as instructed every 4 hours as needed for wheezing/shortness of breath. - ondansetron orally disintegrating (ZOFRAN ODT) 8 mg disintegrating tablet Take 1 tablet by mouth every 8 hours as needed for nausea/vomiting. - folic acid 1 mg tablet Take 2 mg by mouth once daily. - methotrexate 2.5 mg tablet take 6 tablets by mouth ONCE WEEKLY - hydrOXYchloroQUINE (PLAQUENIL) 200 mg tablet Take 200 mg by mouth twice daily. - blood sugar diagnostic (BLOOD GLUCOSE TEST) test strip Test blood sugar(s) 1 times daily. Dx: Type 2 DM - Uncontrolled E11.65 Insulin: No - Lancets lancets Test blood sugar(s) 1 times daily. Dx: Type 2 DM - Uncontrolled E11.65 Insulin: No - CPAP Autopap 11-20 cm H2O, Heat Humidity, suitable mask, [employer] supplies, opt Chinstrap, G47.33. - EMGALITY PEN 120 mg/mL pnij INJECT 120MG/ML PEN TWICE FOR THE 1ST MONTH AND ONCE A MONTH THEREAFTER - buprenorphine (BELBUCA) [address] 150 mcg between cheek and gum q 12 HR. - blood sugar diagnostic (ONETOUCH VERIO) test strip Test blood sugar(s) 2 times daily. Dx: 250.02. Insulin: No - traMADol (ULTRAM) 50 mg tablet Take 50 mg by mouth every 8 hours as needed. Problem List As Of Date 09/20/2024 Noted Resolved Migraine, unspecified, with intractable migrain*07/10/2006 05/15/2018 Dysmenorrhea [N94.6] 03/02/2008 09/14/2016 Left flank pain [R10.9] 08/31/2009 09/14/2016 Hydronephrosis [N13.30] 08/31/2009 09/14/2016 FB bladder/urethra [T19.1XXA, T19.0XXA] 09/13/2009 09/14/2016 Other and unspecified ovarian cyst [N83.209] 09/14/2009 05/15/2018 Endometriosis [N80.9] 11/29/2009 Restless Legs [G25.81] 12/27/2009 Numbness and tingling [R20.0, R20.2] 05/12/2010 09/14/2016 Fibromyalgia [M79.7] 10/17/2010 Obstructive sleep apnea syndrome [G47.33] 08/20/2013 Chronic pain [G89.29] 06/08/2014 Chronic back pain [M54.9, G89.29] 06/08/2014 09/14/2016 Type 2 diabetes mellitus without complication (*05/16/2015 05/11/2024 Low HDL (under 40) [E78.6] 01/02/2018 Obesity, Class III, BMI 40-49.9 (morbid obesity*01/16/2018 12/31/2023 Rosacea [L71.9] 02/04/2018 Post-hysterectomy menopause [E89.40, Z90.710] 02/04/2018 05/15/2018 Sweating profusely [R61] 02/04/2018 05/23/2020 Symptomatic menopausal or female climacteric st*05/15/2018 05/15/2018 Hx of hysterectomy [Z90.710] menopause age 43 with VMS s/p TH [N95.1] 05/15/2018 Hormone replacement therapy (HRT) [Z79.890] 05/15/2018 hx of low vitamin D [E55.9] Weight gain [R63.5] 12/31/2023 Screening for colon cancer [Z12.11] 07/10/2018 08/11/2018 Cervical radiculopathy [M54.12] 08/29/2018 Pain of left upper extremity [M79.602] 08/29/2018 05/23/2020 Muscle wasting and atrophy, not elsewhere class*09/03/2018 05/23/2020 Essential hypertension [I10] 05/23/2020 BMI 50.0-59.9, adult (HCC) [Z68.43] 10/25/2020 Rheumatoid arthritis (HCC) [M06.9] 11/19/2022 Type 2 diabetes mellitus with diabetic neuropat*12/19/2022 Encounter Status:Closed by ANA FOX on 09/20/24 CNPN Observed: 09/03/2024 12:00 AM Status: COMPLETED Source: [facility] Telephone (Mango-MateTR) SARAVANAN POWELL ([id number]) 1975 F Date Time Provider Department 09/03/24 REVA MARTINO [facility]ate[facility] During your visit today, we recorded the following information about you: Reva Martino APRN.MANUEL 09/03/2024 9:15 AM Signed Urine culture POSITIVE Please advise patient that the antibiotic prescribed is appropriate. Complete. Follow up with PCP Please advise Kelsie Belcher MA 09/03/2024 9:19 AM Signed Unable to reach patient. Left message with spouse to have patient return call to office. Please read below and advise. MICHAEL Zhang Stephanie, RN 09/03/2024 4:53 PM Signed Patient notified of results and provider's instructions. Patient verbalizes understanding. Melissa Tello RN Allergies As of Date: 09/03/2024 Noted Allergy Reaction CODEINE 10/12/2005 OZEMPIC (SEMAGLUTIDE) 05/18/2024 11 - Vomiting TRULICITY (DULAGLUTIDE) 05/18/2024 11 - Vomiting VICODIN (HYDROCODONE-ACETAMINOPHE*10/15/2005 11 - Vomiting Date Reviewed: 08/31/2024 Reviewed by: Haresh Cantu APRN.HAT IRONER - Fully Assessed Reason for Visit: Results [95] Prescriptions as of 09/03/2024 - cephALEXin (KEFLEX) 500 mg capsule Take 1 capsule by mouth three times a day for 7 days. - meclizine (ANTIVERT) 25 mg tab Take 1 tablet by mouth three times a day as needed. - losartan (COZAAR) 50 mg tablet Take 1 tablet by mouth once daily. - metoprolol succinate ER (TOPROL XL) 50 mg 24 hr tablet Take 1 tablet by mouth once daily. - DULoxetine (CYMBALTA) 60 mg capsule Take 1 capsule by mouth once daily. - pregabalin (LYRICA) 150 mg capsule Take 1 capsule by mouth two times a day for 90 days. - metFORMIN (GLUCOPHAGE) 1,000 mg tablet Take 1 tablet by mouth two times a day with meals. - linaGLIPtin (TRADJENTA) 5 mg tab Take 1 tablet by mouth once daily. - Lancets Test blood sugar(s) 2 times daily. Dx: Type 2 DM - Uncontrolled E11.65 Insulin: No - blood sugar diagnostic (BLOOD GLUCOSE TEST) test strip Test blood sugar(s) 2 times daily. Dx: Type 2 DM - Controlled E11.9 Insulin: No - buPROPion (WELLBUTRIN) 75 mg tablet Take 1 tablet by mouth two times a day. - glimepiride (AMARYL) 2 mg tablet Take 1 tablet by mouth daily with breakfast. - tiZANidine HCl (ZANAFLEX) 2 mg capsule Take 2 mg by mouth three times a day as needed for muscle spasm. - albuterol HFA (PROVENTIL HFA, VENTOLIN HFA) 90 mcg/actuation inhaler Inhale 2 Puffs as instructed every 4 hours as needed for wheezing/shortness of breath. - ondansetron orally disintegrating (ZOFRAN ODT) 8 mg disintegrating tablet Take 1 tablet by mouth every 8 hours as needed for nausea/vomiting. - folic acid 1 mg tablet Take 2 mg by mouth once daily. - methotrexate 2.5 mg tablet take 6 tablets by mouth ONCE WEEKLY - hydrOXYchloroQUINE (PLAQUENIL) 200 mg tablet Take 200 mg by mouth twice daily. - blood sugar diagnostic (BLOOD GLUCOSE TEST) test strip Test blood sugar(s) 1 times daily. Dx: Type 2 DM - Uncontrolled E11.65 Insulin: No - Lancets lancets Test blood sugar(s) 1 times daily. Dx: Type 2 DM - Uncontrolled E11.65 Insulin: No - CPAP Autopap 11-20 cm H2O, Heat Humidity, suitable mask, [employer] supplies, opt Chinstrap, G47.33. - EMGALITY PEN 120 mg/mL pnij INJECT 120MG/ML PEN TWICE FOR THE 1ST MONTH AND ONCE A MONTH THEREAFTER - buprenorphine (BELBUCA) [address] 150 mcg between cheek and gum q 12 HR. - blood sugar diagnostic (ONETOUCH VERIO) test strip Test blood sugar(s) 2 times daily. Dx: 250.02. Insulin: No - traMADol (ULTRAM) 50 mg tablet Take 50 mg by mouth every 8 hours as needed. Problem List As Of Date 09/03/2024 Noted Resolved Migraine, unspecified, with intractable migrain*07/10/2006 05/15/2018 Dysmenorrhea [N94.6] 03/02/2008 09/14/2016 Left flank pain [R10.9] 08/31/2009 09/14/2016 Hydronephrosis [N13.30] 08/31/2009 09/14/2016 FB bladder/urethra [T19.1XXA, T19.0XXA] 09/13/2009 09/14/2016 Other and unspecified ovarian cyst [N83.209] 09/14/2009 05/15/2018 Endometriosis [N80.9] 11/29/2009 Restless Legs [G25.81] 12/27/2009 Numbness and tingling [R20.0, R20.2] 05/12/2010 09/14/2016 Fibromyalgia [M79.7] 10/17/2010 Obstructive sleep apnea syndrome [G47.33] 08/20/2013 Chronic pain [G89.29] 06/08/2014 Chronic back pain [M54.9, G89.29] 06/08/2014 09/14/2016 Type 2 diabetes mellitus without complication (*05/16/2015 05/11/2024 Low HDL (under 40) [E78.6] 01/02/2018 Obesity, Class III, BMI 40-49.9 (morbid obesity*01/16/2018 12/31/2023 Rosacea [L71.9] 02/04/2018 Post-hysterectomy menopause [E89.40, Z90.710] 02/04/2018 05/15/2018 Sweating profusely [R61] 02/04/2018 05/23/2020 Symptomatic menopausal or female climacteric st*05/15/2018 05/15/2018 Hx of hysterectomy [Z90.710] menopause age 43 with VMS s/p TH [N95.1] 05/15/2018 Hormone replacement therapy (HRT) [Z79.890] 05/15/2018 hx of low vitamin D [E55.9] Weight gain [R63.5] 12/31/2023 Screening for colon cancer [Z12.11] 07/10/2018 08/11/2018 Cervical radiculopathy [M54.12] 08/29/2018 Pain of left upper extremity [M79.602] 08/29/2018 05/23/2020 Muscle wasting and atrophy, not elsewhere class*09/03/2018 05/23/2020 Essential hypertension [I10] 05/23/2020 BMI 50.0-59.9, adult (HCC) [Z68.43] 10/25/2020 Rheumatoid arthritis (HCC) [M06.9] 11/19/2022 Type 2 diabetes mellitus with diabetic neuropat*12/19/2022 Encounter Status:Closed by MELISSA TELLO on 09/03/24 CNROSMERY Observed: 08/31/2024 5:00 PM Status: COMPLETED Source: [facility] Office Visit (WSTR) SARAVANAN POWELL ([id number]) 1975 F Date Time Provider Department 08/31/24 5:00 PM HARESH CANTU [facility] During your visit today, we recorded the following information about you: Temperature Pulse Respiration Blood pressure 100.6 degrees 100/minute 16/minute 156/92 Weight 134.1 kg Haresh Cantu APRN.HAT IRONER 08/31/2024 4:40 PM Signed This note was created using [employer]rivent[employer]. Subjective Saravanan Powell is a 49 year old female. HPI For the last three days pt has had urinary frequency and burning. Patient has a history of UTIs and states this feels similar. She also notes pain in the right CVA region. Review of Systems Gastrointestinal: Negative for abdominal pain, nausea and vomiting. Genitourinary: Positive for dysuria, frequency and urgency. Objective BP 156/92 Pulse 100 Temp (!) 38.1 ?C (100.6 ?F) Resp 16 Wt 134.1 kg (295 lb 10.2 oz) LMP 09/18/2009 SpO2 96% BMI 52.37 kg/m? Physical Exam Vitals and nursing note reviewed. Constitutional: General: She is not in acute distress. Appearance: Normal appearance. She is ill-appearing. HENT: Head: Normocephalic. Mouth/Throat: Mouth: Mucous membranes are moist. Eyes: Conjunctiva/sclera: Conjunctivae normal. Cardiovascular: Rate and Rhythm: Normal rate and regular rhythm. Pulmonary: Effort: Pulmonary effort is normal. Breath sounds: Normal breath sounds. Abdominal: Palpations: Abdomen is soft. Tenderness: There is no abdominal tenderness. There is right CVA tenderness. Musculoskeletal: General: Normal range of motion. Cervical back: Normal range of motion. Skin: General: Skin is warm and dry. Neurological: General: No focal deficit present. Mental Status: She is alert. Psychiatric: Mood and Affect: Mood normal. Behavior: Behavior normal. Assessment and Plan ASSESSMENT/PLAN: 1. Urinary frequency - ICD9: 788.41, ICD10: R35.0 (primary diagnosis) As below - UA DIP, URINE (POC) - URINE CULTURE 2. Acute UTI - ICD9: 599.0, ICD10: N39.0 acute - UA positive for des esterase, hematuria, and nitrates - Send urine for culture - Begin treatment with 500 mg 3 times daily for 7 days as previous urine cultures shows resistance to Macrobid and patient does have some right CVA tenderness. - Patient education for prevention given Patient strongly encouraged to go directly to the emergency department if her fever does not resolve within the next day or if she develops worsening pain, vomiting, any other new or worsening concerns. - CEPHALEXIN 500 MG CAPSULE Haresh Cantu APRN.HAT IRONER Allergies As of Date: 08/31/2024 Noted Allergy Reaction CODEINE 10/12/2005 OZEMPIC (SEMAGLUTIDE) 05/18/2024 11 - Vomiting TRULICITY (DULAGLUTIDE) 05/18/2024 11 - Vomiting VICODIN (HYDROCODONE-ACETAMINOPHE*10/15/2005 11 - Vomiting Date Reviewed: 08/31/2024 Reviewed by: Haresh Cantu APRN.HAT IRONER - Fully Assessed Reason for Visit: Urinary Frequency [1086] Cmt: burning with urination x 3 days Primary Visit Diagnosis:Urinary frequency [R35.0] Other Visit Diagnosis:Acute UTI [N39.0] Order(s):UA DIP, URINE (POC) [1386632] Order #: [id number]. #:[id number] [id number] CULTURE [[id number]] Order #: [id number]. #:[id number] cephALEXin (KEFLEX) 500 mg capsuleTake 1 capsule by mouth three times a day for 7 days.Disp: 21 capsuleRfl: 0 Prescriptions as of 08/31/2024 - cephALEXin (KEFLEX) 500 mg capsule Take 1 capsule by mouth three times a day for 7 days. - meclizine (ANTIVERT) 25 mg tab Take 1 tablet by mouth three times a day as needed. - losartan (COZAAR) 50 mg tablet Take 1 tablet by mouth once daily. - metoprolol succinate ER (TOPROL XL) 50 mg 24 hr tablet Take 1 tablet by mouth once daily. - DULoxetine (CYMBALTA) 60 mg capsule Take 1 capsule by mouth once daily. - pregabalin (LYRICA) 150 mg capsule Take 1 capsule by mouth two times a day for 90 days. - metFORMIN (GLUCOPHAGE) 1,000 mg tablet Take 1 tablet by mouth two times a day with meals. - linaGLIPtin (TRADJENTA) 5 mg tab Take 1 tablet by mouth once daily. - Lancets Test blood sugar(s) 2 times daily. Dx: Type 2 DM - Uncontrolled E11.65 Insulin: No - blood sugar diagnostic (BLOOD GLUCOSE TEST) test strip Test blood sugar(s) 2 times daily. Dx: Type 2 DM - Controlled E11.9 Insulin: No - buPROPion (WELLBUTRIN) 75 mg tablet Take 1 tablet by mouth two times a day. - glimepiride (AMARYL) 2 mg tablet Take 1 tablet by mouth daily with breakfast. - tiZANidine HCl (ZANAFLEX) 2 mg capsule Take 2 mg by mouth three times a day as needed for muscle spasm. - albuterol HFA (PROVENTIL HFA, VENTOLIN HFA) 90 mcg/actuation inhaler Inhale 2 Puffs as instructed every 4 hours as needed for wheezing/shortness of breath. - ondansetron orally disintegrating (ZOFRAN ODT) 8 mg disintegrating tablet Take 1 tablet by mouth every 8 hours as needed for nausea/vomiting. - folic acid 1 mg tablet Take 2 mg by mouth once daily. - methotrexate 2.5 mg tablet take 6 tablets by mouth ONCE WEEKLY - hydrOXYchloroQUINE (PLAQUENIL) 200 mg tablet Take 200 mg by mouth twice daily. - blood sugar diagnostic (BLOOD GLUCOSE TEST) test strip Test blood sugar(s) 1 times daily. Dx: Type 2 DM - Uncontrolled E11.65 Insulin: No - Lancets lancets Test blood sugar(s) 1 times daily. Dx: Type 2 DM - Uncontrolled E11.65 Insulin: No - CPAP Autopap 11-20 cm H2O, Heat Humidity, suitable mask, [employer] supplies, opt Chinstrap, G47.33. - EMGALITY PEN 120 mg/mL pnij INJECT 120MG/ML PEN TWICE FOR THE 1ST MONTH AND ONCE A MONTH THEREAFTER - buprenorphine (BELBUCA) [address] 150 mcg between cheek and gum q 12 HR. - blood sugar diagnostic (ONETOUCH VERIO) test strip Test blood sugar(s) 2 times daily. Dx: 250.02. Insulin: No - traMADol (ULTRAM) 50 mg tablet Take 50 mg by mouth every 8 hours as needed. Problem List As Of Date 08/31/2024 Noted Resolved Migraine, unspecified, with intractable migrain*07/10/2006 05/15/2018 Dysmenorrhea [N94.6] 03/02/2008 09/14/2016 Left flank pain [R10.9] 08/31/2009 09/14/2016 Hydronephrosis [N13.30] 08/31/2009 09/14/2016 FB bladder/urethra [T19.1XXA, T19.0XXA] 09/13/2009 09/14/2016 Other and unspecified ovarian cyst [N83.209] 09/14/2009 05/15/2018 Endometriosis [N80.9] 11/29/2009 Restless Legs [G25.81] 12/27/2009 Numbness and tingling [R20.0, R20.2] 05/12/2010 09/14/2016 Fibromyalgia [M79.7] 10/17/2010 Obstructive sleep apnea syndrome [G47.33] 08/20/2013 Chronic pain [G89.29] 06/08/2014 Chronic back pain [M54.9, G89.29] 06/08/2014 09/14/2016 Type 2 diabetes mellitus without complication (*05/16/2015 05/11/2024 Low HDL (under 40) [E78.6] 01/02/2018 Obesity, Class III, BMI 40-49.9 (morbid obesity*01/16/2018 12/31/2023 Rosacea [L71.9] 02/04/2018 Post-hysterectomy menopause [E89.40, Z90.710] 02/04/2018 05/15/2018 Sweating profusely [R61] 02/04/2018 05/23/2020 Symptomatic menopausal or female climacteric st*05/15/2018 05/15/2018 Hx of hysterectomy [Z90.710] menopause age 43 with VMS s/p TH [N95.1] 05/15/2018 Hormone replacement therapy (HRT) [Z79.890] 05/15/2018 hx of low vitamin D [E55.9] Weight gain [R63.5] 12/31/2023 Screening for colon cancer [Z12.11] 07/10/2018 08/11/2018 Cervical radiculopathy [M54.12] 08/29/2018 Pain of left upper extremity [M79.602] 08/29/2018 05/23/2020 Muscle wasting and atrophy, not elsewhere class*09/03/2018 05/23/2020 Essential hypertension [I10] 05/23/2020 BMI 50.0-59.9, adult ([facility]) [Z68.43] 10/25/2020 Rheumatoid arthritis ([facility]) [M06.9] 11/19/2022 Type 2 diabetes mellitus with diabetic neuropat*12/19/2022 Prescriptions ordered this encounter Disp Refills Start End CEPHALEXIN 500 MG CAPSULE 21 c* 0 08/31/2024 09/07/2024 Route: ORAL Sig: Take 1 capsule by mouth three times a day for 7 days. Encounter Status:Closed by HARESH CANTU on 08/31/24 BACTERIA UR CULT Observed: 08/31/2024 4:43 PM Status: F Source: [facility] CULTURE, URINE: Mixed microbiota, including predominantly: ORGANISM ID: 1 >=100,000 CFU/ml Escherichia coli ORGANISM ID: 1 (ESCHERICHIA COLI) ----- ----- ANTIBIOTIC INTERPRETATION KEYUR STATUS REFERENCE RANGE ----- ----- Ampicillin R >=32 F Susceptible <=8 , Intermediate >8 , Resistant >16 Cefazolin S <=4 F Susceptible 0-16 , Intermediate <0 or >16 , Resistant >16 For uncomplicated urinary tract infections, cefazolin results can be used to predict susceptibility or resistance to cephalexin. Ceftriaxone S <=1 F Susceptible <=1 , Intermediate >1 , Resistant >=4 Cefepime S <=1 F Susceptible <=2 , Susceptible-Dose Dependent >2 , Resistant >=16 Ertapenem S <=0.5 F Susceptible <=0.5 , Intermediate >.5 , Resistant >1 Meropenem S <=0.25 F Susceptible <=1 , Intermediate >1 , Resistant >2 Ampicillin/Sulbact I 16 F Susceptible <=8 , Intermediate >8 , Resistant >16 Piperacillin/Tazobac S <=4 F Susceptible <16 , Susceptible-Dose Dependent >=16 , Resistant >=32 Gentamicin S <=1 F Susceptible <=2 , Intermediate >2 , Resistant >=8 Tobramycin S <=1 F Susceptible <4 , Intermediate >=4 , Resistant >=8 Trimeth sulfameth R >=320 F Susceptible <=40 , Resistant >40 Ciprofloxacin S <=0.25 F Susceptible <0.5 , Intermediate >=.5 , Resistant >=1 Nitrofurantoin S <=16 F Susceptible <=32 , Intermediate >32 , Resistant >64 Performed By: #### [id number] ### # [facility] CLIA [id number] [address] [place] [address] [place] PROGRESS Observed: 08/31/2024 4:30 PM Status: COMPLETED Source: [facility] HNO ID: [id number] Author: HARESH CANTU APRN.MANUEL Service: ? Author Type: Nurse Practitioner Type: Progress Notes Filed: 08/31/2024 16:40 Note Text: This note was created using NoteWriter. Subjective Saravanan Powell is a 49 year old female. HPI For the last three days pt has had urinary frequency and burning. Patient has a history of UTIs and states this feels similar. She also notes pain in the right CVA region. Review of Systems Gastrointestinal: Negative for abdominal pain, nausea and vomiting. Genitourinary: Positive for dysuria, frequency and urgency. Objective BP 156/92 Pulse 100 Temp (!) 38.1 ?C (100.6 ?F) Resp 16 Wt 134.1 kg (295 lb 10.2 oz) LMP 09/18/2009 SpO2 96% BMI 52.37 kg/m? Physical Exam Vitals and nursing note reviewed. Constitutional: General: She is not in acute distress. Appearance: Normal appearance. She is ill-appearing. HENT: Head: Normocephalic. Mouth/Throat: Mouth: Mucous membranes are moist. Eyes: Conjunctiva/sclera: Conjunctivae normal. Cardiovascular: Rate and Rhythm: Normal rate and regular rhythm. Pulmonary: Effort: Pulmonary effort is normal. Breath sounds: Normal breath sounds. Abdominal: Palpations: Abdomen is soft. Tenderness: There is no abdominal tenderness. There is right CVA tenderness. Musculoskeletal: General: Normal range of motion. Cervical back: Normal range of motion. Skin: General: Skin is warm and dry. Neurological: General: No focal deficit present. Mental Status: She is alert. Psychiatric: Mood and Affect: Mood normal. Behavior: Behavior normal. Assessment and Plan ASSESSMENT/PLAN: 1. Urinary frequency - ICD9: 788.41, ICD10: R35.0 (primary diagnosis) As below - UA DIP, URINE (POC) - URINE CULTURE 2. Acute UTI - ICD9: 599.0, ICD10: N39.0 acute - UA positive for des esterase, hematuria, and nitrates - Send urine for culture - Begin treatment with 500 mg 3 times daily for 7 days as previous urine cultures shows resistance to Macrobid and patient does have some right CVA tenderness. - Patient education for prevention given Patient strongly encouraged to go directly to the emergency department if her fever does not resolve within the next day or if she develops worsening pain, vomiting, any other new or worsening concerns. - CEPHALEXIN 500 MG CAPSULE Haresh Cantu APRN.CNP PROGRESS Observed: 08/14/2024 1:52 PM Status: COMPLETED Source: [facility] HNO ID: [id number] Author: KACIE GUEVARA APRN.HAT IRONER Service: ? Author Type: Nurse Practitioner Type: Progress Notes Filed: 08/14/2024 18:37 Note Text: Saravanan Powell is a 49 year old female here for a Medicare wellness visit. Medicare Health Risk Assessment General Health Fair Exercise: Minutes/Day 0 min Exercise: Days/Week 0 days Alcohol: Daily Use Never Alcohol: Drinks/Day Patient does not drink Alcohol: 6 or more drinks Never Feel off balance No Concerns: Teeth/Dentures No Concerns: Sexual function No Troubled by feelings Anxious; Stressed; Angry; Irritable Frequency: Eating healthy diet Several days ADLs requiring help None of the above Safety precautions in home/vehicle Yes Smoke, vape, chews tobacco No Difficulty hearing Yes, I wear a hearing aid Difficulty seeing No Current Providers Eye doctor Pain management Rheumatology Medical/Family history review Reviewed and updated problem list, medical/surgical/family/social history, medications, and allergies. Opioid use review Opioid Medications (last 90 days) 08/14/2024 Opioid Medications buprenorphine HCl 150 mcg q 12 HR BUCCAL (150 mcg film) tramadol HCl 50 mg q 8 H PRN ORAL (50 mg tab) Details Medication marked as long-term Patient-reported medication Prescribed No opioid use on file in the last 90 days Does patient have risk factors for opioid abuse? No Pain overview Current pain concerns and treatment plan reviewed. Patient under the care of a specialist. Anxiety/Depression screening Worsening symptoms currently d/t situational issues. Recommendation: continuing current treatment plan Cognitive screening Cognitive screening reviewed and No further action needed (score 3-5). Functional Observation Was the patient's Timed Up AND Go test unsteady or >= 12 seconds? No Advance Care Planning Has an advanced directive. Scanned in chart. Measurements BP 140/100 Pulse 96 Resp 16 Wt 135.2 kg (298 lb) LMP 09/18/2009 SpO2 98% BMI 52.79 kg/m? Vision Screening: Follows with optometry/ophthalmology Assessment/Plan Medicare annual wellness visit, subsequent (Z00.00) - Counseled on healthy diet and regular exercise - Fall avoidance information provided - Personalized prevention plan provided Additional Concerns The following concerns were also discussed with the patient: DM: Reports overall feeling well. Medication side effects: No. Home sugar checks: just got new meter -- mostly 120's. Hypoglycemic spells: No. Watching diet: Yes. Not a snacker. No evening snacking. Unexpected weight loss: No. Polyuria, polydipsia: No. Vision Changes: No. Foot lesions or numbness or pain: No. Migraines Controlled with the emgality. HTN: Patient is compliant with meds Yes Denies side effects: Yes. Chest pain: No. Dyspnea: No. Edema: No. Palpitations: No. Syncope: No. Headache: No. Dizziness: No. Mood: Worsening depression/anxiety. She was a leadership intern for a long time. Recently children were removed from her home, which has been very difficult for her to deal with. Also some stressors with father. Skin rash. Recently had a lesion removed from dermatology. Has noticed a rash and odorous. Just would like to get checked. PHYSICAL EXAM BP 140/100 Pulse 96 Resp 16 Wt 135.2 kg (298 lb) LMP 09/18/2009 SpO2 98% BMI 52.79 kg/m? 138/98 GENERAL: well appearing, alert, in no acute distress CARDIOVASCULAR: regular rate and rhythm. No murmur, rubs or gallops. PULMONARY: clear to auscultation, no wheezing, rhonchi, or crackles ABDOMEN: soft, non-tender, non-distended, no masses or organomegaly EXTREMITY: no lower extremity edema. No skin discoloration. Skin: moisture and yeasty rash under right abdominal fold. ASSESSMENT/PLAN: 1. Type 2 diabetes mellitus without complication, with long-term current use of insulin (HCC) - ICD9: 250.00, V58.67, ICD10: E11.9, Z79.4 (primary diagnosis) - Control undetermined, due for labs - Continue current medications Better control since back on medication regimen. - HEMOGLOBIN A1C 2. Cutaneous candidiasis - ICD9: 112.3, ICD10: B37.2 Start: - CLOTRIMAZOLE 1 % TOPICAL CREAM 3. Essential hypertension - ICD9: 401.9, ICD10: I10 - Uncontrolled Normally controlled. Maybe related to increased stress today. Recheck in 1 month. Discussed treatment plan and patient voices understanding. Patient's questions answered appropriately. Medications and potential side effects were discussed and patient voices understanding. Return to the office as scheduled or as needed for worsening/no improvement. Kacie Guevara APRN.HAT IRONER CNOV Observed: 08/14/2024 1:40 PM Status: COMPLETED Source: [facility] Office [facility] SARAVANAN POWELL ([id number]) 1975 F Date Time Provider Department 08/14/24 1:40 PM [facility]A [facility] During your visit today, we recorded the following information about you: Pulse Respiration Blood pressure Weight 96/minute 16/minute 140/100 135.2 kg Kacie Guevara APRN.HAT IRONER 08/14/2024 6:37 PM Signed Saravanan Umanzor Sherry is a 49 year old female here for a Medicare wellness visit. Medicare Health Risk Assessment General Health Fair Exercise: Minutes/Day 0 min Exercise: Days/Week 0 days Alcohol: Daily Use Never Alcohol: Drinks/Day Patient does not drink Alcohol: 6 or more drinks Never Feel off balance No Concerns: Teeth/Dentures No Concerns: Sexual function No Troubled by feelings Anxious; Stressed; Angry; Irritable Frequency: Eating healthy diet Several days ADLs requiring help None of the above Safety precautions in home/vehicle Yes Smoke, vape, chews tobacco No Difficulty hearing Yes, I wear a hearing aid Difficulty seeing No Current Providers Eye doctor Pain management Rheumatology Medical/Family history review Reviewed and updated problem list, medical/surgical/family/social history, medications, and allergies. Opioid use review Opioid Medications (last 90 days) 08/14/2024 Opioid Medications buprenorphine HCl 150 mcg q 12 HR BUCCAL (150 mcg film) tramadol HCl 50 mg q 8 H PRN ORAL (50 mg tab) Details Medication marked as long-term Patient-reported medication Prescribed No opioid use on file in the last 90 days Does patient have risk factors for opioid abuse? No Pain overview Current pain concerns and treatment plan reviewed. Patient under the care of a specialist. Anxiety/Depression screening Worsening symptoms currently d/t situational issues. Recommendation: continuing current treatment plan Cognitive screening Cognitive screening reviewed and No further action needed (score 3-5). Functional Observation Was the patient's Timed Up AND Go test unsteady or >= 12 seconds? No Advance Care Planning Has an advanced directive. Scanned in chart. Measurements BP 140/100 Pulse 96 Resp 16 Wt 135.2 kg (298 lb) LMP 09/18/2009 SpO2 98% BMI 52.79 kg/m? Vision Screening: Follows with optometry/ophthalmology Assessment/Plan Medicare annual wellness visit, subsequent (Z00.00) - Counseled on healthy diet and regular exercise - Fall avoidance information provided - Personalized prevention plan provided Additional Concerns The following concerns were also discussed with the patient: DM: Reports overall feeling well. Medication side effects: No. Home sugar checks: just got new meter -- mostly 120's. Hypoglycemic spells: No. Watching diet: Yes. Not a snacker. No evening snacking. Unexpected weight loss: No. Polyuria, polydipsia: No. Vision Changes: No. Foot lesions or numbness or pain: No. Migraines Controlled with the emgality. HTN: Patient is compliant with meds Yes Denies side effects: Yes. Chest pain: No. Dyspnea: No. Edema: No. Palpitations: No. Syncope: No. Headache: No. Dizziness: No. Mood: Worsening depression/anxiety. She was a leadership intern for a long time. Recently children were removed from her home, which has been very difficult for her to deal with. Also some stressors with father. Skin rash. Recently had a lesion removed from dermatology. Has noticed a rash and odorous. Just would like to get checked. PHYSICAL EXAM BP 140/100 Pulse 96 Resp 16 Wt 135.2 kg (298 lb) LMP 09/18/2009 SpO2 98% BMI 52.79 kg/m? 138/98 GENERAL: well appearing, alert, in no acute distress CARDIOVASCULAR: regular rate and rhythm. No murmur, rubs or gallops. PULMONARY: clear to auscultation, no wheezing, rhonchi, or crackles ABDOMEN: soft, non-tender, non-distended, no masses or organomegaly EXTREMITY: no lower extremity edema. No skin discoloration. Skin: moisture and yeasty rash under right abdominal fold. ASSESSMENT/PLAN: 1. Type 2 diabetes mellitus without complication, with long-term current use of insulin (HCC) - ICD9: 250.00, V58.67, ICD10: E11.9, Z79.4 (primary diagnosis) - Control undetermined, due for labs - Continue current medications Better control since back on medication regimen. - HEMOGLOBIN A1C 2. Cutaneous candidiasis - ICD9: 112.3, ICD10: B37.2 Start: - CLOTRIMAZOLE 1 % TOPICAL CREAM 3. Essential hypertension - ICD9: 401.9, ICD10: I10 - Uncontrolled Normally controlled. Maybe related to increased stress today. Recheck in 1 month. Discussed treatment plan and patient voices understanding. Patient's questions answered appropriately. Medications and potential side effects were discussed and patient voices understanding. Return to the office as scheduled or as needed for worsening/no improvement. Kacie Guevara APRN.Kacie Lobo APRN.CNP 08/14/2024 2:52 PM Addendum Continue same medication. Recheck in 1 month for BP. Screening schedule The following prevention plan is recommended: Depression Screening Never done Anxiety Screening Never done Hepatitis B Vaccine(1 of 3 - 19+ 3-dose series) Never done Shingrix Vaccine(1 of 2) Never done Covid-19 Vaccine(2 - Donnie risk series) due on 03/01/2021 Dilated Retinal Exam due on 08/31/2021 BP Controlled (<130/80) due on 10/25/2021 Diabetic Foot Exam due on 05/21/2023 Influenza Vaccine(1) due on 04/26/2024 WHAT YOU CAN DO TO PREVENT FALLS Many falls can be prevented. By making some changes, you can lower your chances of falling. Four things YOU can do to prevent falls for you* and your caregiver 1. Begin a regular exercise program Exercise is one of the most important ways to lower your chances of falling. It makes you stronger and helps you feel better. Exercises that improve balance and coordination (like Jose Chi) are the most helpful. Lack of exercise leads to weakness and increases your chances of falling. Ask your doctor or health care provider about the best type of exercise program for you. 2. Have your health care provider review your medicines Have your doctor or pharmacist review all the medicines you take, even [id number] medicines. As you get older, the way medicines work in your body can change. Some medicines, or combinations of medicines, can make you sleepy or dizzy and can cause you to fall. 3. Have your vision checked Have your eyes checked by an eye doctor at least once a year. You may be wearing the wrong glasses or have a condition like glaucoma or cataracts that limits your vision. Poor vision can increase your chances of falling. 4. Make your home safer About half of all falls happen at home. To make your home safer: Remove things you can trip over (like papers, books, clothes, and shoes) from stairs and places where you walk. Remove small throw rugs or use double-sided tape to keep the rugs from slipping. Keep items you use often in cabinets you can reach easily without using a step stool. Have grab bars put in next to your toilet and in the tub or shower. Use non-slip mats in the bathtub and on shower floors. Improve the lighting in your home. As you get older, you need brighter lights to see well. Hang light-weight curtains or shades to reduce glare. Have handrails and lights put in on all staircases. Wear shoes both inside and outside the house. Avoid going barefoot or wearing slippers. For more information, contact: Centers for Disease Control and Prevention www.cdc.gov/injury * This information may not apply if you have certain medical conditions. Screening schedule The following prevention plan is recommended: Depression Screening Never done Anxiety Screening Never done Hepatitis B Vaccine(1 of 3 - 19+ 3-dose series) Never done Shingrix Vaccine(1 of 2) Never done Covid-19 Vaccine(2 - Donnie risk series) due on 03/01/2021 Dilated Retinal Exam due on 08/31/2021 BP Controlled (<130/80) due on 10/25/2021 Diabetic Foot Exam due on 05/21/2023 Influenza Vaccine(1) due on 04/26/2024 WHAT YOU CAN DO TO PREVENT FALLS Many falls can be prevented. By making some changes, you can lower your chances of falling. Four things YOU can do to prevent falls for you* and your caregiver 1. Begin a regular exercise program Exercise is one of the most important ways to lower your chances of falling. It makes you stronger and helps you feel better. Exercises that improve balance and coordination (like Jose Chi) are the most helpful. Lack of exercise leads to weakness and increases your chances of falling. Ask your doctor or health care provider about the best type of exercise program for you. 2. Have your health care provider review your medicines Have your doctor or pharmacist review all the medicines you take, even owqp-fcj-maawbiy medicines. As you get older, the way medicines work in your body can change. Some medicines, or combinations of medicines, can make you sleepy or dizzy and can cause you to fall. 3. Have your vision checked Have your eyes checked by an eye doctor at least once a year. You may be wearing the wrong glasses or have a condition like glaucoma or cataracts that limits your vision. Poor vision can increase your chances of falling. 4. Make your home safer About half of all falls happen at home. To make your home safer: Remove things you can trip over (like papers, books, clothes, and shoes) from stairs and places where you walk. Remove small throw rugs or use double-sided tape to keep the rugs from slipping. Keep items you use often in cabinets you can reach easily without using a step stool. Have grab bars put in next to your toilet and in the tub or shower. Use non-slip mats in the bathtub and on shower floors. Improve the lighting in your home. As you get older, you need brighter lights to see well. Hang light-weight curtains or shades to reduce glare. Have handrails and lights put in on all staircases. Wear shoes both inside and outside the house. Avoid going barefoot or wearing slippers. For more information, contact: Centers for Disease Control and Prevention www.cdc.gov/injury * This information may not apply if you have certain medical conditions. Allergies As of Date: 08/14/2024 Noted Allergy Reaction CODEINE 10/12/2005 OZEMPIC (SEMAGLUTIDE) 05/18/2024 11 - Vomiting TRULICITY (DULAGLUTIDE) 05/18/2024 11 - Vomiting VICODIN (HYDROCODONE-ACETAMINOPHE*10/15/2005 11 - Vomiting Date Reviewed: 08/14/2024 Reviewed by: Billy Sawant LPN - Fully Assessed Reason for Visit: Medicare Wellness Exam [4060] Primary Visit Diagnosis:Type 2 diabetes mellitus without complication, with long-term current use of insulin (HCC) [E11.9, Z79.4] Other Visit Diagnoses:Cutaneous candidiasis [B37.2] Essential hypertension [I10] Medicare annual wellness visit, subsequent [Z00.00] Order(s):meclizine (ANTIVERT) 25 mg tabTake 1 tablet by mouth three times a day as needed.Disp: 30 tabletRfl: 5 clotrimazole (LOTRIMIN) 1 % creamApply to affected area two times a day for 14 days.Disp: 28 gRfl: 1 HEMOGLOBIN A1C [HGURM9I] Order #: [id number] FUTURE Prescriptions as of 08/14/2024 - meclizine (ANTIVERT) 25 mg tab Take 1 tablet by mouth three times a day as needed. - clotrimazole (LOTRIMIN) 1 % cream Apply to affected area two times a day for 14 days. - losartan (COZAAR) 50 mg tablet Take 1 tablet by mouth once daily. - metoprolol succinate ER (TOPROL XL) 50 mg 24 hr tablet Take 1 tablet by mouth once daily. - DULoxetine (CYMBALTA) 60 mg capsule Take 1 capsule by mouth once daily. - pregabalin (LYRICA) 150 mg capsule Take 1 capsule by mouth two times a day for 90 days. - metFORMIN (GLUCOPHAGE) 1,000 mg tablet Take 1 tablet by mouth two times a day with meals. - linaGLIPtin (TRADJENTA) 5 mg tab Take 1 tablet by mouth once daily. - Lancets Test blood sugar(s) 2 times daily. Dx: Type 2 DM - Uncontrolled E11.65 Insulin: No - blood sugar diagnostic (BLOOD GLUCOSE TEST) test strip Test blood sugar(s) 2 times daily. Dx: Type 2 DM - Controlled E11.9 Insulin: No - buPROPion (WELLBUTRIN) 75 mg tablet Take 1 tablet by mouth two times a day. - glimepiride (AMARYL) 2 mg tablet Take 1 tablet by mouth daily with breakfast. - tiZANidine HCl (ZANAFLEX) 2 mg capsule Take 2 mg by mouth three times a day as needed for muscle spasm. - albuterol HFA (PROVENTIL HFA, VENTOLIN HFA) 90 mcg/actuation inhaler Inhale 2 Puffs as instructed every 4 hours as needed for wheezing/shortness of breath. - ondansetron orally disintegrating (ZOFRAN ODT) 8 mg disintegrating tablet Take 1 tablet by mouth every 8 hours as needed for nausea/vomiting. - folic acid 1 mg tablet Take 2 mg by mouth once daily. - methotrexate 2.5 mg tablet take 6 tablets by mouth ONCE WEEKLY - hydrOXYchloroQUINE (PLAQUENIL) 200 mg tablet Take 200 mg by mouth twice daily. - blood sugar diagnostic (BLOOD GLUCOSE TEST) test strip Test blood sugar(s) 1 times daily. Dx: Type 2 DM - Uncontrolled E11.65 Insulin: No - Lancets lancets Test blood sugar(s) 1 times daily. Dx: Type 2 DM - Uncontrolled E11.65 Insulin: No - CPAP Autopap 11-20 cm H2O, Heat Humidity, suitable mask, [employer] supplies, opt Chinstrap, G47.33. - EMGALITY PEN 120 mg/mL pnij INJECT 120MG/ML PEN TWICE FOR THE 1ST MONTH AND ONCE A MONTH THEREAFTER - buprenorphine (BELBUCA) [address] 150 mcg between cheek and gum q 12 HR. - blood sugar diagnostic (ONETOUCH VERIO) test strip Test blood sugar(s) 2 times daily. Dx: 250.02. Insulin: No - traMADol (ULTRAM) 50 mg tablet Take 50 mg by mouth every 8 hours as needed. Problem List As Of Date 08/14/2024 Noted Resolved Migraine, unspecified, with intractable migrain*07/10/2006 05/15/2018 Dysmenorrhea [N94.6] 03/02/2008 09/14/2016 Left flank pain [R10.9] 08/31/2009 09/14/2016 Hydronephrosis [N13.30] 08/31/2009 09/14/2016 FB bladder/urethra [T19.1XXA, T19.0XXA] 09/13/2009 09/14/2016 Other and unspecified ovarian cyst [N83.209] 09/14/2009 05/15/2018 Endometriosis [N80.9] 11/29/2009 Restless Legs [G25.81] 12/27/2009 Numbness and tingling [R20.0, R20.2] 05/12/2010 09/14/2016 Fibromyalgia [M79.7] 10/17/2010 Obstructive sleep apnea syndrome [G47.33] 08/20/2013 Chronic pain [G89.29] 06/08/2014 Chronic back pain [M54.9, G89.29] 06/08/2014 09/14/2016 Type 2 diabetes mellitus without complication (*05/16/2015 05/11/2024 Low HDL (under 40) [E78.6] 01/02/2018 Obesity, Class III, BMI 40-49.9 (morbid obesity*01/16/2018 12/31/2023 Rosacea [L71.9] 02/04/2018 Post-hysterectomy menopause [E89.40, Z90.710] 02/04/2018 05/15/2018 Sweating profusely [R61] 02/04/2018 05/23/2020 Symptomatic menopausal or female climacteric st*05/15/2018 05/15/2018 Hx of hysterectomy [Z90.710] menopause age 43 with VMS s/p TH [N95.1] 05/15/2018 Hormone replacement therapy (HRT) [Z79.890] 05/15/2018 hx of low vitamin D [E55.9] Weight gain [R63.5] 12/31/2023 Screening for colon cancer [Z12.11] 07/10/2018 08/11/2018 Cervical radiculopathy [M54.12] 08/29/2018 Pain of left upper extremity [M79.602] 08/29/2018 05/23/2020 Muscle wasting and atrophy, not elsewhere class*09/03/2018 05/23/2020 Essential hypertension [I10] 05/23/2020 BMI 50.0-59.9, adult (HCC) [Z68.43] 10/25/2020 Rheumatoid arthritis (HCC) [M06.9] 11/19/2022 Type 2 diabetes mellitus with diabetic neuropat*12/19/2022 Other instructions from your clinician: Continue same medication. Recheck in 1 month for BP. Screening schedule The following prevention plan is recommended: Depression Screening Never done Anxiety Screening Never done Hepatitis B Vaccine(1 of 3 - 19+ 3-dose series) Never done Shingrix Vaccine(1 of 2) Never done Covid-19 Vaccine(2 - Donnie risk series) due on 03/01/2021 Dilated Retinal Exam due on 08/31/2021 BP Controlled (<130/80) due on 10/25/2021 Diabetic Foot Exam due on 05/21/2023 Influenza Vaccine(1) due on 04/26/2024 WHAT YOU CAN DO TO PREVENT FALLS Many falls can be prevented. By making some changes, you can lower your chances of falling. Four things YOU can do to prevent falls for you* and your caregiver 1. Begin a regular exercise program Exercise is one of the most important ways to lower your chances of falling. It makes you stronger and helps you feel better. Exercises that improve balance and coordination (like Jose Chi) are the most helpful. Lack of exercise leads to weakness and increases your chances of falling. Ask your doctor or health care provider about the best type of exercise program for you. 2. Have your health care provider review your medicines Have your doctor or pharmacist review all the medicines you take, even [id number]-[id number] medicines. As you get older, the way medicines work in your body can change. Some medicines, or combinations of medicines, can make you sleepy or dizzy and can cause you to fall. 3. Have your vision checked Have your eyes checked by an eye doctor at least once a year. You may be wearing the wrong glasses or have a condition like glaucoma or cataracts that limits your vision. Poor vision can increase your chances of falling. 4. Make your home safer About half of all falls happen at home. To make your home safer: Remove things you can trip over (like papers, books, clothes, and shoes) from stairs and places where you walk. Remove small throw rugs or use double-sided tape to keep the rugs from slipping. Keep items you use often in cabinets you can reach easily without using a step stool. Have grab bars put in next to your toilet and in the tub or shower. Use non-slip mats in the bathtub and on shower floors. Improve the lighting in your home. As you get older, you need brighter lights to see well. Hang light-weight curtains or shades to reduce glare. Have handrails and lights put in on all staircases. Wear shoes both inside and outside the house. Avoid going barefoot or wearing slippers. For more information, contact: Centers for Disease Control and Prevention www.cdc.gov/injury * This information may not apply if you have certain medical conditions. Screening schedule The following prevention plan is recommended: Depression Screening Never done Anxiety Screening Never done Hepatitis B Vaccine(1 of 3 - 19+ 3-dose series) Never done Shingrix Vaccine(1 of 2) Never done Covid-19 Vaccine(2 - Donnie risk series) due on 03/01/2021 Dilated Retinal Exam due on 08/31/2021 BP Controlled (<130/80) due on 10/25/2021 Diabetic Foot Exam due on 05/21/2023 Influenza Vaccine(1) due on 04/26/2024 WHAT YOU CAN DO TO PREVENT FALLS Many falls can be prevented. By making some changes, you can lower your chances of falling. Four things YOU can do to prevent falls for you* and your caregiver 1. Begin a regular exercise program Exercise is one of the most important ways to lower your chances of falling. It makes you stronger and helps you feel better. Exercises that improve balance and coordination (like Jose Chi) are the most helpful. Lack of exercise leads to weakness and increases your chances of falling. Ask your doctor or health care provider about the best type of exercise program for you. 2. Have your health care provider review your medicines Have your doctor or pharmacist review all the medicines you take, even [id number] medicines. As you get older, the way medicines work in your body can change. Some medicines, or combinations of medicines, can make you sleepy or dizzy and can cause you to fall. 3. Have your vision checked Have your eyes checked by an eye doctor at least once a year. You may be wearing the wrong glasses or have a condition like glaucoma or cataracts that limits your vision. Poor vision can increase your chances of falling. 4. Make your home safer About half of all falls happen at home. To make your home safer: Remove things you can trip over (like papers, books, clothes, and shoes) from stairs and places where you walk. Remove small throw rugs or use double-sided tape to keep the rugs from slipping. Keep items you use often in cabinets you can reach easily without using a step stool. Have grab bars put in next to your toilet and in the tub or shower. Use non-slip mats in the bathtub and on shower floors. Improve the lighting in your home. As you get older, you need brighter lights to see well. Hang light-weight curtains or shades to reduce glare. Have handrails and lights put in on all staircases. Wear shoes both inside and outside the house. Avoid going barefoot or wearing slippers. For more information, contact: Centers for Disease Control and Prevention www.cdc.gov/injury * This information may not apply if you have certain medical conditions. Prescriptions ordered this encounter Disp Refills Start End MECLIZINE 25 MG TABLET 30 t* 5 08/14/2024 Route: ORAL Sig: Take 1 tablet by mouth three times a day as needed. CLOTRIMAZOLE 1 % TOPICAL CREAM 28 g 1 08/14/2024 08/28/2024 Route: TOPICAL Sig: Apply to affected area two times a day for 14 days. Medications Discontinued During This Encounter Prescriptions - esterified estrogens-methylTESTOSTERone (ESTRATEST) 1.25-2.5 mg per tablet (Discontinued) Take 1 tablet by mouth once daily for 180 days. - mometasone (ELOCON) 0.1 % cream (Discontinued) Apply 1 application to affected area once daily. - meclizine (ANTIVERT) 25 mg tab (Discontinued) Take 1 tablet by mouth three times daily as needed. Encounter Status:Closed by KACIE GUEVARA on 08/14/24 [facility] SCREENING Observed: 08/13/2024 10:18 AM Status: F Source: [facility] * * *Final Report* * * DATE OF EXAM: Aug 13 2024 10:18AM [facility] [id number] - [facility] SCREENING / PROCEDURE REASON: Encounter for screening mammogram for malignant neoplasm of breast * * * * Physician Interpretation * * * * RESULT: [place] [address] #[id number] - [facility] SCREENING HISTORY: Patient is 49 years old and is seen for screening and is asymptomatic in both breasts. Patient states no personal history of breast cancer. Patient states no personal history of other cancers. COMPARISON STUDIES: The present examination has been compared to prior imaging studies dated 03/03/2019 (ultrasound), 06/02/2020 (mammogram), 06/30/2021 (mammogram), 08/10/2022 (mammogram) and 07/29/2023 (mammogram). MAMMOGRAM TECHNIQUE: The study was acquired using full field digital technology and interpreted from soft copy. Computer-aided detection was utilized by the radiologist in the interpretation of this examination. MAMMOGRAM FINDINGS: There are scattered areas of fibroglandular density. No suspicious masses, calcifications or other abnormalities are seen in either breast. There are no significant interval changes. The study is limited in positioning due to the patient's limited mobility. IMPRESSION: There is no mammographic evidence of malignancy in either breast. Routine screening mammogram is recommended. Annual mammogram will be due in 1 year. BI-RADS Category 1: Negative RISK: Based on the Tyrer-Cuzick (TC) risk assessment model, this patient has a 4.2% lifetime risk of developing breast cancer, meaning they are at average risk for developing breast cancer. However, this is only an estimate based on available history provided on the patient's questionnaire. We encourage all patients to talk with their providers about these results, further recommendations for managing breast health, and appropriate supplemental screening options if the patient has dense breast tissue. Interpreting Radiologist: Arabella Hyman M.D. Electronically signed on: 08/14/2024 Veneer Drier: LEONOR Transcribe Date/Time: Aug 13 2024 9:58A Dictated by: ARABELLA HYMAN MD This examination was interpreted and the report reviewed and electronically signed by: ARABELLA HYMAN MD on Aug 14 2024 3:30PM EST [id number] PROGRESS Observed: 08/13/2024 9:50 AM Status: COMPLETED Source: [facility] ID: [id number] Author: SCOTT CAMEJO Mammo Tech Service: ? Author Type: Salvage Inspector Type: Progress Notes Filed: 08/13/2024 10:21 Note Text: Radiology Service Progress Note PATIENT NAME: Saravanan Powell DATE OF SERVICE: August 13, 2024 TIME: 10:20 AM PATIENT IDENTITY VERIFICATION COMPLETED USING TWO (2) IDENTIFIERS: Name and Date of confirmed by patient verbally. FALL SCREENING: Has the patient had 2 falls in the last year or 1 fall with injury or currently using an Ambulatory Assistive Device (Walker, Cane, Wheelchair, Crutches, etc.)? No PATIENT GENDER DATA: Female. status: : No status: NO. PATIENT RELEVANT IMPLANT DATA REVIEWED: Not Applicable PATIENT PRESENTS WITH AN IMPLANTABLE OR ATTACHED WIND TURBINE ERECTOR: No RADIOLOGY DEPARTMENT: Mammography PERIPHERAL IV DATA: Not applicable SIGNED BY: Reagan Noble August 13, 2024 10:20 AM PROGRESS Observed: 08/11/2024 2:48 PM Status: COMPLETED Source: [facility] ID: [id number] Author: VLAD SAMSON MA Service: ? Author Type: Brand Activation Manager Type: Progress Notes Filed: 08/11/2024 14:51 Note Text: POPULATION HEALTH NAVIGATION OUTREACH Action/FYI spoke to pt to schedule wellness, follow up- pt didn't want to schedule this early for the appointments she said she will call back, bp to be addressed as not compliant not <130/80, pt said that she goes to an outside facility for her diabetic eye exam, influenza not addressed at this time, hgba1c- not pended as appointments aren't made, mammogram scheduled and dx code added to appointment- estimate ran and finalized Reason for Outreach Care Gap/HCC or Scheduling Wellness Visits Care Gaps due: Medicare Annual Wellness Visit Follow-up Appointment Breast Cancer Screening Controlling Blood Pressure Diabetic Eye Exam HBA1C Flu Vaccine Patient Contacted: Spoke to patient/parent/or legal guardian Patient identified by name and : Yes Care Gap/HCC/Scheduling Wellness actions taken: Patient scheduled/pended orders: Breast Cancer Screening Navigation Signature: Vlad Samson MA August 11, 2024 2:48 PM CNPTOUTREAEMELINA Observed: 08/11/2024 12:00 AM Status: COMPLETED Source: [facility] Patient Outreach (NETNAV) SARAVANAN POWELL ([id number]) 1975 F Date Time Provider Department 08/11/24 VLAD SAMSON During your visit today, we recorded the following information about you: Vlad Samson MA 08/11/2024 2:51 PM Signed POPULATION HEALTH NAVIGATION OUTREACH Action/FYI spoke to pt to schedule wellness, follow up- pt didn't want to schedule this early for the appointments she said she will call back, bp to be addressed as not compliant not <130/80, pt said that she goes to an outside facility for her diabetic eye exam, influenza not addressed at this time, hgba1c- not pended as appointments aren't made, mammogram scheduled and dx code added to appointment- estimate ran and finalized Reason for Outreach Care Gap/HCC or Scheduling Wellness Visits Care Gaps due: Medicare Annual Wellness Visit Follow-up Appointment Breast Cancer Screening Controlling Blood Pressure Diabetic Eye Exam HBA1C Flu Vaccine Patient Contacted: Spoke to patient/parent/or legal guardian Patient identified by name and : Yes Care Gap/HCC/Scheduling Wellness actions taken: Patient scheduled/pended orders: Breast Cancer Screening Navigation Signature: Vlad Samson MA August 11, 2024 2:48 PM Allergies As of Date: 08/11/2024 Noted Allergy Reaction CODEINE 10/12/2005 OZEMPIC (SEMAGLUTIDE) 05/18/2024 11 - Vomiting TRULICITY (DULAGLUTIDE) 05/18/2024 11 - Vomiting VICODIN (HYDROCODONE-ACETAMINOPHE*10/15/2005 11 - Vomiting Date Reviewed: 05/18/2024 Reviewed by: Sameer Matt MD - Fully Assessed Reason for Visit: Population Health Navigation Outreach [3910] Cmt: Penelope atkins Prescriptions as of 08/11/2024 - DULoxetine (CYMBALTA) 60 mg capsule Take 1 capsule by mouth once daily. - pregabalin (LYRICA) 150 mg capsule Take 1 capsule by mouth two times a day for 90 days. - metFORMIN (GLUCOPHAGE) 1,000 mg tablet Take 1 tablet by mouth two times a day with meals. - linaGLIPtin (TRADJENTA) 5 mg tab Take 1 tablet by mouth once daily. - Lancets Test blood sugar(s) 2 times daily. Dx: Type 2 DM - Uncontrolled E11.65 Insulin: No - blood sugar diagnostic (BLOOD GLUCOSE TEST) test strip Test blood sugar(s) 2 times daily. Dx: Type 2 DM - Controlled E11.9 Insulin: No - buPROPion (WELLBUTRIN) 75 mg tablet Take 1 tablet by mouth two times a day. - glimepiride (AMARYL) 2 mg tablet Take 1 tablet by mouth daily with breakfast. - tiZANidine HCl (ZANAFLEX) 2 mg capsule Take 2 mg by mouth three times a day as needed for muscle spasm. - albuterol HFA (PROVENTIL HFA, VENTOLIN HFA) 90 mcg/actuation inhaler Inhale 2 Puffs as instructed every 4 hours as needed for wheezing/shortness of breath. - losartan (COZAAR) 50 mg tablet Take 1 tablet by mouth once daily. - metoprolol succinate ER (TOPROL XL) 50 mg 24 hr tablet Take 1 tablet by mouth once daily. - ondansetron orally disintegrating (ZOFRAN ODT) 8 mg disintegrating tablet Take 1 tablet by mouth every 8 hours as needed for nausea/vomiting. - folic acid 1 mg tablet Take 2 mg by mouth once daily. - methotrexate 2.5 mg tablet take 6 tablets by mouth ONCE WEEKLY - mometasone (ELOCON) 0.1 % cream Apply 1 application to affected area once daily. - meclizine (ANTIVERT) 25 mg tab Take 1 tablet by mouth three times daily as needed. - hydrOXYchloroQUINE (PLAQUENIL) 200 mg tablet Take 200 mg by mouth twice daily. - esterified estrogens-methylTESTOSTERone (ESTRATEST) 1.25-2.5 mg per tablet Take 1 tablet by mouth once daily for 180 days. - blood sugar diagnostic (BLOOD GLUCOSE TEST) test strip Test blood sugar(s) 1 times daily. Dx: Type 2 DM - Uncontrolled E11.65 Insulin: No - Lancets lancets Test blood sugar(s) 1 times daily. Dx: Type 2 DM - Uncontrolled E11.65 Insulin: No - CPAP Autopap 11-20 cm H2O, Heat Humidity, suitable mask, Lif[employer] supplies, opt Chinstrap, G47.33. - EMGALITY PEN 120 mg/mL pnij INJECT 120MG/ML PEN TWICE FOR THE 1ST MONTH AND ONCE A MONTH THEREAFTER - buprenorphine (BELBUCA) [address] 150 mcg between cheek and gum q 12 HR. - blood sugar diagnostic (ONETOUCH VERIO) test strip Test blood sugar(s) 2 times daily. Dx: 250.02. Insulin: No - traMADol (ULTRAM) 50 mg tablet Take 50 mg by mouth every 8 hours as needed. Problem List As Of Date 08/11/2024 Noted Resolved Migraine, unspecified, with intractable migrain*07/10/2006 05/15/2018 Dysmenorrhea [N94.6] 03/02/2008 09/14/2016 Left flank pain [R10.9] 08/31/2009 09/14/2016 Hydronephrosis [N13.30] 08/31/2009 09/14/2016 FB bladder/urethra [T19.1XXA, T19.0XXA] 09/13/2009 09/14/2016 Other and unspecified ovarian cyst [N83.209] 09/14/2009 05/15/2018 Endometriosis [N80.9] 11/29/2009 Restless Legs [G25.81] 12/27/2009 Numbness and tingling [R20.0, R20.2] 05/12/2010 09/14/2016 Fibromyalgia [M79.7] 10/17/2010 Obstructive sleep apnea syndrome [G47.33] 08/20/2013 Chronic pain [G89.29] 06/08/2014 Chronic back pain [M54.9, G89.29] 06/08/2014 09/14/2016 Type 2 diabetes mellitus without complication (*05/16/2015 05/11/2024 Low HDL (under 40) [E78.6] 01/02/2018 Obesity, Class III, BMI 40-49.9 (morbid obesity*01/16/2018 12/31/2023 Rosacea [L71.9] 02/04/2018 Post-hysterectomy menopause [E89.40, Z90.710] 02/04/2018 05/15/2018 Sweating profusely [R61] 02/04/2018 05/23/2020 Symptomatic menopausal or female climacteric st*05/15/2018 05/15/2018 Hx of hysterectomy [Z90.710] menopause age 43 with VMS s/p TH [N95.1] 05/15/2018 Hormone replacement therapy (HRT) [Z79.890] 05/15/2018 hx of low vitamin D [E55.9] Weight gain [R63.5] 12/31/2023 Screening for colon cancer [Z12.11] 07/10/2018 08/11/2018 Cervical radiculopathy [M54.12] 08/29/2018 Pain of left upper extremity [M79.602] 08/29/2018 05/23/2020 Muscle wasting and atrophy, not elsewhere class*09/03/2018 05/23/2020 Essential hypertension [I10] 05/23/2020 BMI 50.0-59.9, adult (HCC) [Z68.43] 10/25/2020 Rheumatoid arthritis ([facility]) [M06.9] 11/19/2022 Type 2 diabetes mellitus with diabetic neuropat*12/19/2022 Encounter Status:Closed by VLAD SAMSON on 08/11/24 MANUELN Observed: 07/20/2024 12:00 AM Status: COMPLETED Source: [facility] SARAVANAN POWELL ([id number]) 1975 F Date Time Provider Department 07/20/24 SAMEER MATT [facility] During your visit today, we recorded the following information about you: Susana Johns RN 07/20/2024 3:23 PM Signed Patient calling to request order for annual mammogram. MIGUEL Ross Rilee, MA 07/20/2024 4:31 PM Signed Can we please contact pt and help her setup Mammogram as ordered. Ml Pillai MA Allergies As of Date: 07/20/2024 Noted Allergy Reaction CODEINE 10/12/2005 OZEMPIC (SEMAGLUTIDE) 05/18/2024 11 - Vomiting TRULICITY (DULAGLUTIDE) 05/18/2024 11 - Vomiting VICODIN (HYDROCODONE-ACETAMINOPHE*10/15/2005 11 - Vomiting Date Reviewed: 05/18/2024 Reviewed by: Sameer Matt MD - Fully Assessed Reason for Visit: Orders [681] Primary Visit Diagnosis:Encounter for screening mammogram for malignant neoplasm of breast [Z12.31] Order(s):[facility] SCREENING [[id number]] Order #: [id number] FUTURE Prescriptions as of 07/20/2024 - DULoxetine (CYMBALTA) 60 mg capsule Take 1 capsule by mouth once daily. - pregabalin (LYRICA) 150 mg capsule Take 1 capsule by mouth two times a day for 90 days. - metFORMIN (GLUCOPHAGE) 1,000 mg tablet Take 1 tablet by mouth two times a day with meals. - linaGLIPtin (TRADJENTA) 5 mg tab Take 1 tablet by mouth once daily. - Lancets Test blood sugar(s) 2 times daily. Dx: Type 2 DM - Uncontrolled E11.65 Insulin: No - blood sugar diagnostic (BLOOD GLUCOSE TEST) test strip Test blood sugar(s) 2 times daily. Dx: Type 2 DM - Controlled E11.9 Insulin: No - buPROPion (WELLBUTRIN) 75 mg tablet Take 1 tablet by mouth two times a day. - glimepiride (AMARYL) 2 mg tablet Take 1 tablet by mouth daily with breakfast. - tiZANidine HCl (ZANAFLEX) 2 mg capsule Take 2 mg by mouth three times a day as needed for muscle spasm. - albuterol HFA (PROVENTIL HFA, VENTOLIN HFA) 90 mcg/actuation inhaler Inhale 2 Puffs as instructed every 4 hours as needed for wheezing/shortness of breath. - losartan (COZAAR) 50 mg tablet Take 1 tablet by mouth once daily. - metoprolol succinate ER (TOPROL XL) 50 mg 24 hr tablet Take 1 tablet by mouth once daily. - ondansetron orally disintegrating (ZOFRAN ODT) 8 mg disintegrating tablet Take 1 tablet by mouth every 8 hours as needed for nausea/vomiting. - folic acid 1 mg tablet Take 2 mg by mouth once daily. - methotrexate 2.5 mg tablet take 6 tablets by mouth ONCE WEEKLY - mometasone (ELOCON) 0.1 % cream Apply 1 application to affected area once daily. - meclizine (ANTIVERT) 25 mg tab Take 1 tablet by mouth three times daily as needed. - hydrOXYchloroQUINE (PLAQUENIL) 200 mg tablet Take 200 mg by mouth twice daily. - esterified estrogens-methylTESTOSTERone (ESTRATEST) 1.25-2.5 mg per tablet Take 1 tablet by mouth once daily for 180 days. - blood sugar diagnostic (BLOOD GLUCOSE TEST) test strip Test blood sugar(s) 1 times daily. Dx: Type 2 DM - Uncontrolled E11.65 Insulin: No - Lancets lancets Test blood sugar(s) 1 times daily. Dx: Type 2 DM - Uncontrolled E11.65 Insulin: No - CPAP Autopap 11-20 cm H2O, Heat Humidity, suitable mask, [employer] supplies, opt Chinstrap, G47.33. - EMGALITY PEN 120 mg/mL pnij INJECT 120MG/ML PEN TWICE FOR THE 1ST MONTH AND ONCE A MONTH THEREAFTER - buprenorphine (BELBUCA) [address] 150 mcg between cheek and gum q 12 HR. - blood sugar diagnostic (ONETOUCH VERIO) test strip Test blood sugar(s) 2 times daily. Dx: 250.02. Insulin: No - traMADol (ULTRAM) 50 mg tablet Take 50 mg by mouth every 8 hours as needed. Problem List As Of Date 07/20/2024 Noted Resolved Migraine, unspecified, with intractable migrain*07/10/2006 05/15/2018 Dysmenorrhea [N94.6] 03/02/2008 09/14/2016 Left flank pain [R10.9] 08/31/2009 09/14/2016 Hydronephrosis [N13.30] 08/31/2009 09/14/2016 FB bladder/urethra [T19.1XXA, T19.0XXA] 09/13/2009 09/14/2016 Other and unspecified ovarian cyst [N83.209] 09/14/2009 05/15/2018 Endometriosis [N80.9] 11/29/2009 Restless Legs [G25.81] 12/27/2009 Numbness and tingling [R20.0, R20.2] 05/12/2010 09/14/2016 Fibromyalgia [M79.7] 10/17/2010 Obstructive sleep apnea syndrome [G47.33] 08/20/2013 Chronic pain [G89.29] 06/08/2014 Chronic back pain [M54.9, G89.29] 06/08/2014 09/14/2016 Type 2 diabetes mellitus without complication (*05/16/2015 05/11/2024 Low HDL (under 40) [E78.6] 01/02/2018 Obesity, Class III, BMI 40-49.9 (morbid obesity*01/16/2018 12/31/2023 Rosacea [L71.9] 02/04/2018 Post-hysterectomy menopause [E89.40, Z90.710] 02/04/2018 05/15/2018 Sweating profusely [R61] 02/04/2018 05/23/2020 Symptomatic menopausal or female climacteric st*05/15/2018 05/15/2018 Hx of hysterectomy [Z90.710] menopause age 43 with VMS s/p TH [N95.1] 05/15/2018 Hormone replacement therapy (HRT) [Z79.890] 05/15/2018 hx of low vitamin D [E55.9] Weight gain [R63.5] 12/31/2023 Screening for colon cancer [Z12.11] 07/10/2018 08/11/2018 Cervical radiculopathy [M54.12] 08/29/2018 Pain of left upper extremity [M79.602] 08/29/2018 05/23/2020 Muscle wasting and atrophy, not elsewhere class*09/03/2018 05/23/2020 Essential hypertension [I10] 05/23/2020 BMI 50.0-59.9, adult (HCC) [Z68.43] 10/25/2020 Rheumatoid arthritis (HCC) [M06.9] 11/19/2022 Type 2 diabetes mellitus with diabetic neuropat*12/19/2022 Encounter Status:Closed by SAMEER MATT on 07/20/24 MANUELN Observed: 07/15/2024 12:00 AM Status: COMPLETED Source: [facility] Telephone ([facility]) SARAVANAN POWELL ([id number]) 1975 F Date Time Provider Department 07/15/24 TAMI MAHMOODN During your visit today, we recorded the following information about you: Tami Mahmood [facility] 07/15/2024 10:12 AM Signed Telephoned the patient to schedule a new Primary Care pharmacy appt. Left a message. Tami Mahmood [facility] 07/21/2024 4:15 PM Signed Telephoned the patient to schedule a new Primary Care pharmacy appt. Left a message. Made two attempts to contact the patient. Patient was sent Tonara message. If the patient returns a call, an appt will be scheduled. Encounter routed to the clinical pharmacist. Allergies As of Date: 07/15/2024 Noted Allergy Reaction CODEINE 10/12/2005 OZEMPIC (SEMAGLUTIDE) 05/18/2024 11 - Vomiting TRULICITY (DULAGLUTIDE) 05/18/2024 11 - Vomiting VICODIN (HYDROCODONE-ACETAMINOPHE*10/15/2005 11 - Vomiting Date Reviewed: 05/18/2024 Reviewed by: Sameer Matt MD - Fully Assessed Reason for Visit: New Primary Care Pharmacy Appt. [Other] Prescriptions as of 07/21/2024 - DULoxetine (CYMBALTA) 60 mg capsule Take 1 capsule by mouth once daily. - pregabalin (LYRICA) 150 mg capsule Take 1 capsule by mouth two times a day for 90 days. - metFORMIN (GLUCOPHAGE) 1,000 mg tablet Take 1 tablet by mouth two times a day with meals. - linaGLIPtin (TRADJENTA) 5 mg tab Take 1 tablet by mouth once daily. - Lancets Test blood sugar(s) 2 times daily. Dx: Type 2 DM - Uncontrolled E11.65 Insulin: No - blood sugar diagnostic (BLOOD GLUCOSE TEST) test strip Test blood sugar(s) 2 times daily. Dx: Type 2 DM - Controlled E11.9 Insulin: No - buPROPion (WELLBUTRIN) 75 mg tablet Take 1 tablet by mouth two times a day. - glimepiride (AMARYL) 2 mg tablet Take 1 tablet by mouth daily with breakfast. - tiZANidine HCl (ZANAFLEX) 2 mg capsule Take 2 mg by mouth three times a day as needed for muscle spasm. - albuterol HFA (PROVENTIL HFA, VENTOLIN HFA) 90 mcg/actuation inhaler Inhale 2 Puffs as instructed every 4 hours as needed for wheezing/shortness of breath. - losartan (COZAAR) 50 mg tablet Take 1 tablet by mouth once daily. - metoprolol succinate ER (TOPROL XL) 50 mg 24 hr tablet Take 1 tablet by mouth once daily. - ondansetron orally disintegrating (ZOFRAN ODT) 8 mg disintegrating tablet Take 1 tablet by mouth every 8 hours as needed for nausea/vomiting. - folic acid 1 mg tablet Take 2 mg by mouth once daily. - methotrexate 2.5 mg tablet take 6 tablets by mouth ONCE WEEKLY - mometasone (ELOCON) 0.1 % cream Apply 1 application to affected area once daily. - meclizine (ANTIVERT) 25 mg tab Take 1 tablet by mouth three times daily as needed. - hydrOXYchloroQUINE (PLAQUENIL) 200 mg tablet Take 200 mg by mouth twice daily. - esterified estrogens-methylTESTOSTERone (ESTRATEST) 1.25-2.5 mg per tablet Take 1 tablet by mouth once daily for 180 days. - blood sugar diagnostic (BLOOD GLUCOSE TEST) test strip Test blood sugar(s) 1 times daily. Dx: Type 2 DM - Uncontrolled E11.65 Insulin: No - Lancets lancets Test blood sugar(s) 1 times daily. Dx: Type 2 DM - Uncontrolled E11.65 Insulin: No - CPAP Autopap 11-20 cm H2O, Heat Humidity, suitable mask, [employer] supplies, opt Chinstrap, G47.33. - EMGALITY PEN 120 mg/mL pnij INJECT 120MG/ML PEN TWICE FOR THE 1ST MONTH AND ONCE A MONTH THEREAFTER - buprenorphine (BELBUCA) [address] 150 mcg between cheek and gum q 12 HR. - blood sugar diagnostic (ONETOUCH VERIO) test strip Test blood sugar(s) 2 times daily. Dx: 250.02. Insulin: No - traMADol (ULTRAM) 50 mg tablet Take 50 mg by mouth every 8 hours as needed. Problem List As Of Date 07/15/2024 Noted Resolved Migraine, unspecified, with intractable migrain*07/10/2006 05/15/2018 Dysmenorrhea [N94.6] 03/02/2008 09/14/2016 Left flank pain [R10.9] 08/31/2009 09/14/2016 Hydronephrosis [N13.30] 08/31/2009 09/14/2016 FB bladder/urethra [T19.1XXA, T19.0XXA] 09/13/2009 09/14/2016 Other and unspecified ovarian cyst [N83.209] 09/14/2009 05/15/2018 Endometriosis [N80.9] 11/29/2009 Restless Legs [G25.81] 12/27/2009 Numbness and tingling [R20.0, R20.2] 05/12/2010 09/14/2016 Fibromyalgia [M79.7] 10/17/2010 Obstructive sleep apnea syndrome [G47.33] 08/20/2013 Chronic pain [G89.29] 06/08/2014 Chronic back pain [M54.9, G89.29] 06/08/2014 09/14/2016 Type 2 diabetes mellitus without complication (*05/16/2015 05/11/2024 Low HDL (under 40) [E78.6] 01/02/2018 Obesity, Class III, BMI 40-49.9 (morbid obesity*01/16/2018 12/31/2023 Rosacea [L71.9] 02/04/2018 Post-hysterectomy menopause [E89.40, Z90.710] 02/04/2018 05/15/2018 Sweating profusely [R61] 02/04/2018 05/23/2020 Symptomatic menopausal or female climacteric st*05/15/2018 05/15/2018 Hx of hysterectomy [Z90.710] menopause age 43 with VMS s/p TH [N95.1] 05/15/2018 Hormone replacement therapy (HRT) [Z79.890] 05/15/2018 hx of low vitamin D [E55.9] Weight gain [R63.5] 12/31/2023 Screening for colon cancer [Z12.11] 07/10/2018 08/11/2018 Cervical radiculopathy [M54.12] 08/29/2018 Pain of left upper extremity [M79.602] 08/29/2018 05/23/2020 Muscle wasting and atrophy, not elsewhere class*09/03/2018 05/23/2020 Essential hypertension [I10] 05/23/2020 BMI 50.0-59.9, adult (HCC) [Z68.43] 10/25/2020 Rheumatoid arthritis (HCC) [M06.9] 11/19/2022 Type 2 diabetes mellitus with diabetic neuropat*12/19/2022 Encounter Status:Closed by TAMI MAHMOOD on 07/15/24 PROGRESS Observed: 07/14/2024 10:44 AM Status: COMPLETED Source: [facility] ID: [id number] Author: SYDNEY REIS RPh Service: ? Author Type: Pharmacist Type: Progress Notes Filed: 07/14/2024 10:45 Note Text: Primary Care Pharmacy Panel Management This patient has been identified through Specialty Integration/Value-Based Operations Diabetes List Review by the primary care pharmacy team. Please contact patient and schedule a pharmacy in-person, phone, or virtual visit for diabetes management. Please use New Pharmacy, New Pharmacy Phone call, or Video Primary New visit types. Sydney Reis PharmD, DARLENE Primary Care Clinical Set Illustrator MANUELTOUTREAEMELINA Observed: 07/14/2024 12:00 AM Status: COMPLETED Source: [facility] Patient Outreach ([facility]) SARAVANAN POWELL ([id number]) 1975 F Date Time Provider Department 07/14/24 SYDNEY REIS [facility] During your visit today, we recorded the following information about you: Sydney Reis daly 07/14/2024 10:45 AM Signed Primary Care Pharmacy Panel Management This patient has been identified through Specialty Integration/Value-Based Operations Diabetes List Review by the primary care pharmacy team. Please contact patient and schedule a pharmacy in-person, phone, or virtual visit for diabetes management. Please use New Pharmacy, New Pharmacy Phone call, or Video Primary New visit types. Sydney Reis PharmD, DARLENE Primary Care Clinical Set Illustrator Allergies As of Date: 07/14/2024 Noted Allergy Reaction CODEINE 10/12/2005 OZEMPIC (SEMAGLUTIDE) 05/18/2024 11 - Vomiting TRULICITY (DULAGLUTIDE) 05/18/2024 11 - Vomiting VICODIN (HYDROCODONE-ACETAMINOPHE*10/15/2005 11 - Vomiting Date Reviewed: 05/18/2024 Reviewed by: Sameer Matt MD - Fully Assessed Primary Visit Diagnosis:Type 2 diabetes mellitus without complication, unspecified whether terminal clerk insulin use (HCC) [E11.9] Order(s):CONSULT TO PHARMACY [19991101] Order #: [id number]: 1 Prescriptions as of 07/14/2024 - DULoxetine (CYMBALTA) 60 mg capsule Take 1 capsule by mouth once daily. - pregabalin (LYRICA) 150 mg capsule Take 1 capsule by mouth two times a day for 90 days. - metFORMIN (GLUCOPHAGE) 1,000 mg tablet Take 1 tablet by mouth two times a day with meals. - linaGLIPtin (TRADJENTA) 5 mg tab Take 1 tablet by mouth once daily. - Lancets Test blood sugar(s) 2 times daily. Dx: Type 2 DM - Uncontrolled E11.65 Insulin: No - blood sugar diagnostic (BLOOD GLUCOSE TEST) test strip Test blood sugar(s) 2 times daily. Dx: Type 2 DM - Controlled E11.9 Insulin: No - buPROPion (WELLBUTRIN) 75 mg tablet Take 1 tablet by mouth two times a day. - glimepiride (AMARYL) 2 mg tablet Take 1 tablet by mouth daily with breakfast. - tiZANidine HCl (ZANAFLEX) 2 mg capsule Take 2 mg by mouth three times a day as needed for muscle spasm. - albuterol HFA (PROVENTIL HFA, VENTOLIN HFA) 90 mcg/actuation inhaler Inhale 2 Puffs as instructed every 4 hours as needed for wheezing/shortness of breath. - losartan (COZAAR) 50 mg tablet Take 1 tablet by mouth once daily. - metoprolol succinate ER (TOPROL XL) 50 mg 24 hr tablet Take 1 tablet by mouth once daily. - ondansetron orally disintegrating (ZOFRAN ODT) 8 mg disintegrating tablet Take 1 tablet by mouth every 8 hours as needed for nausea/vomiting. - folic acid 1 mg tablet Take 2 mg by mouth once daily. - methotrexate 2.5 mg tablet take 6 tablets by mouth ONCE WEEKLY - mometasone (ELOCON) 0.1 % cream Apply 1 application to affected area once daily. - meclizine (ANTIVERT) 25 mg tab Take 1 tablet by mouth three times daily as needed. - hydrOXYchloroQUINE (PLAQUENIL) 200 mg tablet Take 200 mg by mouth twice daily. - esterified estrogens-methylTESTOSTERone (ESTRATEST) 1.25-2.5 mg per tablet Take 1 tablet by mouth once daily for 180 days. - blood sugar diagnostic (BLOOD GLUCOSE TEST) test strip Test blood sugar(s) 1 times daily. Dx: Type 2 DM - Uncontrolled E11.65 Insulin: No - Lancets lancets Test blood sugar(s) 1 times daily. Dx: Type 2 DM - Uncontrolled E11.65 Insulin: No - CPAP Autopap 11-20 cm H2O, Heat Humidity, suitable mask, [employer] supplies, opt Chinstrap, G47.33. - EMGALITY PEN 120 mg/mL pnij INJECT 120MG/ML PEN TWICE FOR THE 1ST MONTH AND ONCE A MONTH THEREAFTER - buprenorphine (BELBUCA) [address] 150 mcg between cheek and gum q 12 HR. - blood sugar diagnostic (ONETOUCH VERIO) test strip Test blood sugar(s) 2 times daily. Dx: 250.02. Insulin: No - traMADol (ULTRAM) 50 mg tablet Take 50 mg by mouth every 8 hours as needed. Problem List As Of Date 07/14/2024 Noted Resolved Migraine, unspecified, with intractable migrain*07/10/2006 05/15/2018 Dysmenorrhea [N94.6] 03/02/2008 09/14/2016 Left flank pain [R10.9] 08/31/2009 09/14/2016 Hydronephrosis [N13.30] 08/31/2009 09/14/2016 FB bladder/urethra [T19.1XXA, T19.0XXA] 09/13/2009 09/14/2016 Other and unspecified ovarian cyst [N83.209] 09/14/2009 05/15/2018 Endometriosis [N80.9] 11/29/2009 Restless Legs [G25.81] 12/27/2009 Numbness and tingling [R20.0, R20.2] 05/12/2010 09/14/2016 Fibromyalgia [M79.7] 10/17/2010 Obstructive sleep apnea syndrome [G47.33] 08/20/2013 Chronic pain [G89.29] 06/08/2014 Chronic back pain [M54.9, G89.29] 06/08/2014 09/14/2016 Type 2 diabetes mellitus without complication (*05/16/2015 05/11/2024 Low HDL (under 40) [E78.6] 01/02/2018 Obesity, Class III, BMI 40-49.9 (morbid obesity*01/16/2018 12/31/2023 Rosacea [L71.9] 02/04/2018 Post-hysterectomy menopause [E89.40, Z90.710] 02/04/2018 05/15/2018 Sweating profusely [R61] 02/04/2018 05/23/2020 Symptomatic menopausal or female climacteric st*05/15/2018 05/15/2018 Hx of hysterectomy [Z90.710] menopause age 43 with VMS s/p TH [N95.1] 05/15/2018 Hormone replacement therapy (HRT) [Z79.890] 05/15/2018 hx of low vitamin D [E55.9] Weight gain [R63.5] 12/31/2023 Screening for colon cancer [Z12.11] 07/10/2018 08/11/2018 Cervical radiculopathy [M54.12] 08/29/2018 Pain of left upper extremity [M79.602] 08/29/2018 05/23/2020 Muscle wasting and atrophy, not elsewhere class*09/03/2018 05/23/2020 Essential hypertension [I10] 05/23/2020 BMI 50.0-59.9, adult (HCC) [Z68.43] 10/25/2020 Rheumatoid arthritis (HCC) [M06.9] 11/19/2022 Type 2 diabetes mellitus with diabetic neuropat*12/19/2022 Encounter Status:Closed by SYDNEY REIS on 07/14/24 ALLERGIES DATE TYPE / CODE NAME / CODE REACTION SEVERITY SOURCE 05/18/2024 DRUG INGREDI/751027 003(SNOMED CT) DULAGLUTIDE Nauseavomit [facility] 05/18/2024 DRUG INGREDI/377150 003(SNOMED CT) SEMAGLUTIDE Nauseavomit [facility] 05/18/2024 DRUG INGREDI/038030 003(SNOMED CT) SEMAGLUTIDE Vomiting [facility] 05/18/2024 DRUG INGREDI/930600 003(SNOMED CT) DULAGLUTIDE Vomiting [facility] 06/11/2019 DRUG INGREDI/130528 003(SNOMED CT) HYDROCODONE NandV [facility] 10/15/2005 DRUG/[id number] (SNOMED CT) HYDROCODONE-ACETAMIN OPHEN Other [facility] 10/15/2005 DRUG/[id number] (SNOMED CT) HYDROCODONE-ACETAMIN OPHEN Vomiting [facility] 10/12/2005 DRUG INGREDI/968213 003(SNOMED CT) CODEINE Other [facility] 10/12/2005 DRUG INGREDI/509676 003(SNOMED CT) CODEINE [facility] ENCOUNTERS ADMIT/DISCHARGE ACCOUNT NUMBER ADMITTING ENCOUNTER CLASS LOCATION SOURCE 05/21/2025/05/21/20 25 [id number] [facility]05[facility]21[facility]20 25 [id number] Ambulatory [facility] Hospital[facility] ding:[facility] 04/15/2025/04/15/20 25 [id number] Ambulatory [facility] Hospital[facility] ding:SRUTHI [facility] 03/22/2025/03/22/20 25 [id number] Ambulatory Building:[facility]G [facility]OD[facility]AM[facility]Y [facility] 02/22/2025/02/27/20 25 [id number] LISSETTE VERA Ambulatory Building:POD AMBRPKDG [facility] 02/22/2025/02/23/20 25 [id number] Ambulatory Building:[facility]ODIATRYAMBR [facility]Y [facility] 02/15/2025/02/16/20 25 [id number] Ambulatory [facility] Hospital[facility]il ding:[facility] 10/01/2024/10/01/19 25 [id number] [facility] 09/21/2024/09/21/19 25 [id number] [facility] 09/20/2024/09/20/19 25 [id number] [facility]31[facility] [id number] [facility]/14/2024/08/14/20 24 [id number] [facility] 08/13/2024/08/13/20 [id number] [facility]WODM [facility] PAYERS ENCOUNTER GUARANTOR PAYER SUBSCRIBER SOURCE 05/21/2025 Primary Insuranc e:[facility] CHOICE PLUSPolicy Number: [id number] Date:4325-22-89Bcet Name:Suhail Jimenez SWEGLEDOB: 6600-66-25APD508 [address] [address] [facility] 05/21/2025 Secondary Insurance:HU[employer] MEDICARE PPOPolicy Number: [id number] Date:8857-33-19Feqq Name:Wesley Umanzor SWEGLEDOB: [id number] [address] [address] [facility] 05/21/2025 Primary Insuranc e:[facility] CHOICE PLUSPolicy Number: [id number] Date:1680-59-98Azyv Name:Suhail Jimenez SWEGLEDOB: [id number] [address] [address] [facility] 05/21/2025 Secondary Insurance:[employer]NA MEDICARE PPOPolicy Number: [id number] Date:7044-47-17Vgtz Name:Wesley Umanzor SWEGLEDOB: 5084-15-99SON110 [address] [address] [facility] 04/15/2025 Primary Insuranc e:[facility] CHOICE PLUSPolicy Number: [id number] Date:9550-24-89Qycn Name:Suhail Jimenez SWEGLEDOB: [id number] [address] [address] [facility] 04/15/2025 Secondary Insurance:[employer]NA MEDICARE PPOPolicy Number: [id number] Date:9480-09-13Crus Name:Wesley Umanzor SWEGLEDOB: [id number] [address] [address] [facility] 03/22/2025 SARAVANAN SWEGLEDOB: [address] [address] [address] [place] [address]Vta: ~(41 [phone] (HP) Primary Insurance:UHCPolicy Number: [id number] Date:7373-42-52[address], [place] [address]VO: TIAGO Jimenez SWEGLEDOB: 1771-87-26COR453 [address] [address] [facility] 03/22/2025 Secondary Insurance:HUMANA MANAGED MEDICAREPolicy Number: [id number] Date:6396-23-03[address] [place] [phone]: SARAVANAN SWEGLEDOB: [id number] [address] [address]Bnb: (HP) [facility] 02/22/2025 SARAVANAN SWEGLEDOB: [address] [address]Zgb: ~(41 [phone] (HP) Primary Insurance:UHCPolicy Number: [id number] Date:6468-11-50Q[address], [place] [address]FZ: TIAGO Jimenez SWEGLEDOB: 5020-63-02PCV104 [address] [address] [facility] 02/22/2025 Secondary Insurance:HUMANA MANAGED MEDICAREPolicy Number: [id number] Date:3635-95-25IP [address] [place] [address]HW: SARAVANAN SWEGLEDOB: 4713-64-31JEI595 [address] [address]Ebf: (HP) [facility] 02/22/2025 SARAVANAN SWEGLEDOB: [address] [address]Fny: ~(41 [phone] (HP) Primary Insurance:UHCPolicy Number: [id number] Date:7033-53-30[address], [place] [address]QU: TIAGO Jimenez SWEGLEDOB: [id number] [address] [address] [facility] 02/22/2025 Secondary Insurance:HUMANA MANAGED MEDICAREPolicy Number: [id number] Date:2553-25-08TP [address] [place] [address]QN: SARAVANAN SWEGLEDOB: 4815-51-29PHM[address] [place] [id number]: () [facility] 02/15/2025 Primary Insuranc e:[facility] CHOICE PLUSPolicy Number: [id number] Date:7381-10-11Lvcs Name:Suhail Jimenez SWEGLEDOB: [id number] [address] 02/15/2025 Secondary Insurance:[employer]NA MEDICARE PPOPolicy Number: [id number] Date:8381-10-85Zevp Name:Wesley Umanzor SWEGLEDOB: 3551-50-01UXE796 [address] 10/01/2024 Primary Insuranc e:[facility] CHOICE PLUSPolicy Number: [id number] Date:2125-55-40Unyi Name:Suhail Jimenez SWEGLEDOB: 8047-99-81PHW007 [address] [address] [facility] 10/01/2024 Secondary Insurance:HUMANA MEDICARE PPOPolicy Number: [id number] Date:6806-42-76Odlk Name:Welsey Umanzor SWEGLEDOB: 9776-23-96DCV202 [address] [address] [facility] 09/21/2024 Primary Insuranc e:[facility] CHOICE PLUSPolicy Number: [id number] Date:8242-44-74Dxgd Name:Suhail Jimenez SWEGLEDOB: 9755-35-23QGI146 [place] [id number] [facility] 09/21/2024 Secondary Insurance:[employer]NA MEDICARE PPOPolicy Number: [id number] Date:5110-06-73Jtqx Name:Wesley Umanzor SWEGLEDOB: [id number] [place] [address] [facility] 09/20/2024 Primary Insuranc e:[facility] CHOICE PLUSPolicy Number: [id number] Date:5047-89-25Dksx Name:Suhail Jimenez SWEGLEDOB: [id number] [address] [facility] 09/20/2024 Secondary Insurance:[employer] MEDICARE PPOPolicy Number: [id number] Date:1684-00-22Ihse Name:Wesley Umanzor SWEGLEDOB: 1685-02-35FDT[address] [place] [address] [facility] 08/31/2024 Primary Insuranc e:[facility] CHOICE PLUSPolicy Number: [id number] Date:7221-34-81Jrlb Name:Suhail Jimenez SWEGLEDOB: [id number] [address] [address] [facility] 08/31/2024 Secondary Insurance:HU[employer]NA MEDICARE PPOPolicy Number: [id number] Date:4011-53-22Uiyy Name:Wesley Umanzor SWEGLEDOB: 1860-18-87[address] [place] [address] [facility] 08/14/2024 Primary Insuranc e:[facility] CHOICE PLUSPolicy Number: [id number] Date:0111-03-68Owfi Name:Suhail Jimenez SWEGLEDOB: [id number] [address] [address] [facility] 08/14/2024 Secondary Insurance:HU[employer]NA MEDICARE PPOPolicy Number: [id number] Date:4205-21-12Ftup Name:Wesley Umanzor SWEGLEDOB: 0784-03-[address] [place] [address] [facility] 08/13/2024 Primary Insuranc e:[facility] CHOICE PLUSPolicy Number: [id number] Date:9843-94-78Gsvn Name:Suhail PECKOB: 0583-40-36SWU596 [address] [address] [facility] 08/13/2024 Secondary Insurance:HUMANA MEDICARE PPOPolicy Number: [id number] Date:6927-51-82Otqt Name:Wesley ACEVEDO: 0533-32-42XLL[address] [address] [facility]
[2025-05-25 10:17] VITALS: BP 183/102; PULSE 86; RESP 20; TEMP 37.2; O2SAT 100; BMI 54.0
--- NOTE | 2025-05-25 10:22 | CT_ITS ---
PROCEDURE: ABDOMEN/PELVIS WITHOUT CONT 05/25/2025 REASON FOR EXAM: PAIN TECHNIQUE: Procedure Code: CTABDPEL Modality: CT Procedure: ABDOMEN/PELVIS WITHOUT CONT Noncontrast technique limits evaluation of the abdominal and pelvic viscera. Coronal and Sagittal reconstruction series were provided. One or more dose reduction techniques were used (e.g., Automated exposure control, adjustment of the mA and/or kV according to patient size, use of iterative reconstruction technique). RADIATION DOSE SUMMARY: CTDlvol: 24.18 mGy DLP: 1322.92 mGycm COMPARISON: 2020 FINDINGS: Lung bases: Clear Liver: Normal size. No obvious mass. Gallbladder: Not seen Spleen: Normal size. Pancreas: Normal size. No surrounding inflammation. Adrenals: Unremarkable Kidneys: Right kidney is free of obstructive uropathy or suspicious solid renal lesion. Left kidney however shows hydronephrosis and hydroureter with a minimal amount of perinephric and Emily ureteral inflammatory stranding. No ureteral stone is identified. There is a subtle 2 mm calcification in the dependent bladder which may have recently passed from the left ureter. There is also evidence of surgical clips adjacent to the distal left ureter from likely tubal ligation which could be impinging upon the ureter and causing drainage issues. There also could be a non radiopaque stone present. Bladder: No wall thickening or pericystic inflammation. Reproductive Organs: Likely surgically absent Bowel: No CTA evidence of obstruction or acute inflammation, there is fat deposition within the ascending colon which could be due to chronic inflammatory bowel disease. Sigmoid diverticula without CT evidence of acute diverticulitis Appendix: Normal appendix seen on coronal recon images 69-89 Lymph nodes: No suspicious mesenteric or retroperitoneal lymphadenopathy Vasculature: Unremarkable Peritoneum / Retroperitoneum: No free fluid or air Bones: Degenerative bony changes CT/Abdomen/Pelvis without Cont IMPRESSION: Left-sided hydronephrosis and hydroureter with a minimal amount of perinephric and Emily ureteral inflammatory stranding. No obstructing stone is noted. There is a subtle 2 mm stone in the dependent blad nimisha which may have recently passed from the left collecting system. Other possibilities include non radiopaque stone or impinge ment/stricture from tubal ligation as there are surgical clips immediately adjacent to the distal left ureter seen on coronal r econ image 99, and axial image 153 No free intraperitoneal fluid, air, or suspicious adenopathy, normal appendix v isualized Sigmoid diverticulosis Degenerative bony changes Reading Location: [id number]
--- NOTE | 2025-05-25 10:24 | ED.VIS.GI ---
HPI HPI - GI History of Present Illness Chief Complaint: Flank Pain Detail of Chief Complaint: Left flank pain 3 AM. History of kidney stones. Informant: patient Abdominal Pain/Flank Pain Onset: Today and Hours Context: Sudden Onset Timing: Continuous Quality: Sharp Location: Left Flank Current Severity: Severe Maximum Severity: Severe Worsened by: Nothing Relieved by: Nothing Diarrhea/Melena/Hematochezia GI Symptom: Positive for Diarrhea (Yesterday.) Associated Symptoms Associated Symptoms: Negative for Dysuria, Frequency, Hematuria or Urgency Narrative Narrative: 50-year-old female history of diabetes and prior kidney stones with prior stent. States she was at work this morning 3 AM sudden onset left flank pain. Similar to prior kidney stones. Last kidney stone was about 2 years ago. She has had prior stenting. Denies nausea or vomiting. Some mild loose stools yesterday. No dysuria. Denies any fever. She has had a prior cholecystectomy and complete hysterectomy with BSO. Prior similar symptoms: Yes Recent Illness/Hospitalization: No PFSH PFSH Medical History (Updated 05/25/25 @ 12:[address] Daniel Briones MD) Hormone deficiency Hearing problem Frequent headaches Fibromyalgia Anxiety and depression Diabetes Carpal tunnel syndrome Breast lump in female Arthritis Home Medications ?Medication ?Instructions ?Recorded ?Last Taken ?Type buprenorphine 20 mcg/hour weekly 1 patch TD Q7D 04/12/17 Unknown History transdermal patch cephalexin 500 mg capsule (Keflex) 500 mg PO 4X/DAY ##30 04/12/17 Unknown Rx duloxetine 60 mg capsule,delayed 60 mg PO BID 04/12/17 Unknown History release glimepiride 1 mg tablet 1 mg PO DAILY 04/12/17 Unknown History metformin 1,000 mg tablet 1,000 mg PO BID 04/12/17 Unknown History pregabalin 150 mg capsule 150 mg PO BID 04/12/17 Unknown History tramadol 50 mg tablet 50 mg PO BID 04/12/17 Unknown History alpha lipoic acid 300 mg capsule 300 mg PO DAILY 05/18/19 Unknown History bupropion HCl 75 mg tablet 75 mg PO BID 05/18/19 Unknown History cholecalciferol (vitamin D3) 250 10,000 unit PO DAILY 05/18/19 Unknown History mcg (10,000 unit) capsule conjugated estrogens 0.3 mg tablet 0.3 mg PO DAILY 05/18/19 Unknown History (Premarin) esterified 1 tab PO DAILY 05/18/19 Unknown History estrogens-methyltestosterone 0.625 mg-1.25 mg tablet metoprolol tartrate 25 mg tablet 25 mg PO BID 05/18/19 Unknown History pyridoxine (vitamin B6) 100 mg 100 mg PO DAILY 05/18/19 Unknown History tablet sulfamethoxazole 800 1 tab PO BID 14 days #28 tabs 01/15/21 Unknown Rx mg-trimethoprim 160 mg tablet (Bactrim DS) Allergy/AdvReac Type Severity Reaction Status Date / Time acetaminophen (From Vicodin) AdvReac Unknown Verified 05/25/25 10:18 codeine AdvReac Unknown Verified 05/25/25 10:18 hydrocodone (From Vicodin) AdvReac Unknown Verified 05/25/25 10:18 Family History Other Arthritis Cancer Depression Diabetes Heart disease Hormone disorder Hypertension Severe allergy Skin cancer Surgical History History of cholecystectomy H/O total hysterectomy Social History Smoking Status: Former smoker alcohol intake: never substance use type: does not use additional social history: DOES NOT USE ASPIRIN DOES NOT USE IBUPROFEN ROS ROS ED ROS Narrative Left flank pain. Constitutional Constitutional ED: Denies chills or fever(s) ENT ENT ED: Denies ear pain Cardiovascular Cardiovascular: Denies chest pain Respiratory/Chest Respiratory/Chest: Denies cough or dyspnea Gastrointestinal Gastrointestinal: Reports diarrhea and other Details: Left flank pain. ; Denies abdominal pain, constipation, melena, nausea or vomiting Genitourinary Genitourinary ED: Denies dysuria or hematuria Musculoskeletal Musculoskeletal: Reports back pain; Denies arthralgias Integumentary Denies abscess or Abrasions Neurologic Neurologic: Denies headache(s) Psychiatric Psychiatric: Denies anxiety Endocrine Endocrinology: Denies polydipsia Hematologic/Lymphatic Hematologic/Lymphatic: Denies easy bleeding Allergic/Immunologic Allergic/Immunologic ED: Denies mouth swelling, tongue swelling or urticaria EXAM Physical Exam Narrative Exam Narrative: 50-year-old female in bed. Vital signs stable afebrile. Complaint left flank pain. Family present. H EENT exam pupils round react light. Moist mutes membranes. Neck nontender no lymphadenopathy. Back no reproducible pain. No bruising. Lungs clear to auscultation bilaterally. Heart regular rhythm rate about 85 no murmur. Chest wall ribs nontender. Abdomen soft nontender. No peritoneal signs. No reproducible pain. Moving all 4 extremities. Nontender. Normal strength. Awake and alert. Answer questions following commands. No focal motor deficits. Const Vital Signs: 05/25/25 10:17 Temperature 99 F Temperature Source Temporal Pulse Rate 86 Respiratory Rate 20 H Blood Pressure 183/102 H Blood Pressure Mean 129 Pulse Ox 100 Oxygen Delivery Method Room Air Positive well nourished and well developed; Negative for cachectic, contractures or unkempt General Appearance ED: well developed; Negative for unkempt, cachectic, contractures, NAD or pallor Nutritional Appearance: Negative for cachectic HEENT Reports moist mucous membranes normocephalic and atraumatic Eyes PERRL and EOMs intact bilaterally Neck no lymphadenopathy, supple and no JVD General: Negative for tenderness Resp normal respiratory effort and clear to auscultation bilaterally Cardio regular rate, regular rhythm, S1 normal heart sound, S2 normal heart sound and no murmurs GI non-tender, non-distended and no masses Inspection: Negative for abdominal distention Auscultation: normoactive bowel sounds Palpation: soft; Negative for tender, guarding, rigid or rebound tenderness present Back/Spine no CVA tenderness General Back: Negative for CVA tenderness Cervical Spine: Negative for cervical spine tenderness Thoracic Spine / Upper Back: Negative for thoracic spinal tenderness Lumbar Spine / Lower Back: Negative for lumbar spinal tenderness Extremity full ROM General Extremety ED: Negative for edema or tenderness General Extremity: Negative for edema Neuro CN's II-XII intact bilaterally and moves all extremities Sensorium / Orientation: alert, oriented to person, oriented to place and oriented to time Motor Exam: strength 5/5 throughout Psych mental status grossly normal and thought process normal Appearance: Negative for unkempt Skin no wounds General Skin Exam: Negative for jaundice or pallor Lesions: no lesions Rashes: no rashes Trauma: Negative for abrasion Nails: Negative for discolored MDM MDM MDM Narrative Medical decision making narrative: 50-year-old left flank pain history of kidney stones. Should be treated with IV morphine, Zofran and Toradol for pain. UA, labs and CT will be obtained. Differential be kidney stone versus UTI versus other. Repeat exam patient doing well at 12:06 PM. CAT scan shows what is been seen before in the past. She may have passed a 2 mm stone seen in her bladder but she has had a hydro nephrosis hydroureter on this side for some time. She has had prior stents there is a question if there could be scar tissue. Patient to be discharged to home. Fluids. Motrin and Tylenol. She will be given a local urologist to follow-up with. She needs further evaluation of the hydronephrosis and hydroureter. History & Record Review Discussion w/independent historian: Patient Additional record(s) reviewed:: Prior inpatient record, Prior outpatient record, Prior ED visit and Prior labs Lab Data Attestation: I reviewed the patient's lab results. Lab results narrative: CBC shows a white 11.4. H&H 14 and 44. Platelets 317. Electrolytes show gap 12. Normal BUN and creatinine. Glucose 440. Known diabetic. CAT scan shows a stone in the bladder that recently passed. 2 mm. Dilated left ureter. Also hydronephrosis. Seen on prior studies. UA shows no nitrates. No red cells. 10-25 white cells but is contaminated with 5-10 epithelial cells. No bacteria. Labs: Laboratory Results - last 24 hr 05/25/25 05/25/25 10:26 11:32 WBC 11.4 H RBC 5.23 Hgb 14.4 Hct 44.2 MCV 84.5 MCH 27.5 MCHC 32.6 RDW Std Deviation 42.7 RDW Coeff of Pritesh 14.0 Plt Count 317 MPV 11.5 Immature Gran % (Auto) 0.400 Neut % (Auto) 87.9 H Lymph % (Auto) 8.4 L [place] % (Auto) 1.9 Eos % (Auto) 0.9 Baso % (Auto) 0.5 Absolute Neuts (auto) 10.0 H Absolute Lymphs (auto) 0.96 Nucleated RBC % 0 Sodium 137 Potassium 4.6 Chloride 101 Carbon Dioxide 23.6 Anion Gap 12 BUN 12 Creatinine 0.75 Estim Creat Clear Calc 115.88 Est GFR (MDRD) Non-Af 97 BUN/Creatinine Ratio 15.7 Glucose 440 H Calcium 9.3 Urine Color Yellow Urine Clarity Clear Urine pH 6.0 Ur Specific [place] 1.015 Urine Protein 15 H Urine Glucose (UA) 1000 H Urine Ketones Negative Urine Occult Blood 50 H Urine Nitrite Negative Urine Bilirubin Negative Urine Urobilinogen Normal Ur Leukocyte Esterase 500 H Urine RBC 0-5 SEEN Urine WBC 10-25 SEEN Ur Squamous Epith Cells 5-10 SEEN Urine Bacteria 0 SEEN Urine Mucus 0 SEEN Radiography Diagnostic Testing: Clinical Impression(s) from Imaging Studies Abdomen/Pelvis CT 05/25/25 10:22 IMPRESSION: Left-sided hydronephrosis and hydroureter with a minimal amount of perinephric and Emily ureteral inflammatory stranding. No obstructing stone is noted. There is a subtle 2 mm stone in the dependent bladder which may have recently passed from the left collecting system. Other possibilities include non radiopaque stone or impingement/stricture from tubal ligation as there are surgical clips immediately adjacent to the distal left ureter seen on coronal recon image 99, and axial image 153 No free intraperitoneal fluid, air, or suspicious adenopathy, normal appendix visualized Sigmoid diverticulosis Degenerative bony changes Reading Location: [facility] Discharge Plan Triage Chief Complaint: Flank Pain ED Provider: Daniel Briones Dx/Rx/DC Orders Clinical Impression: Acute left flank pain, History of diabetes mellitus, Kidney stone on left side Instructions: ED Kidney Stone, Passed Prescriptions: No Action bupropion HCl 75 mg tablet 75 mg PO BID estrogens-methyltestosterone 0.625-1.25 mg tablet 1 tab PO DAILY Premarin 0.3 mg tablet 0.3 mg PO DAILY metoprolol tartrate 25 mg tablet 25 mg PO BID alpha lipoic acid 300 mg capsule 300 mg PO DAILY pyridoxine (vitamin B6) 100 mg tablet 100 mg PO DAILY cholecalciferol (vitamin D3) 10,000 unit capsule 10,000 unit PO DAILY tramadol 50 MG tablet 50 mg PO BID Patient Comments: glimepiride 1 MG tablet 1 mg PO DAILY Patient Comments: metformin 1,000 MG tablet 1,000 mg PO BID duloxetine 60 MG capsule 60 mg PO BID Patient Comments: pregabalin 150 MG capsule 150 mg PO BID Patient Comments: buprenorphine 1 EACH patch weekly 1 patch TD Q7D Patient Comments: cephalexin [Keflex] 500 MG capsule 500 mg PO 4X/DAY Qty: 30 0RF sulfamethoxazole-trimethoprim [Bactrim DS] 800-160 mg tablet 1 tab PO BID 14 Days Qty: 28 0RF Primary Care Provider: Sameer Matt Referrals: Mayda Cerda MD [Med Staff - Active Staff, Urology] - As soon as possible Davie Tenorio MD [Med Staff - Active Staff, Urology] - As soon as possible Sameer Matt MD [Primary Care Provider, Medical] Activity Restrictions/Additional Instructions: Motrin and/or Tylenol for pain. Plenty of fluids. Call and follow-up with one of the 2 urologist I referred you to for further evaluation of the dilated ureter and kidney on your left side. It may be from scar tissue from your prior stent or other causes. Print Language: Italian Disposition Disposition: Home, Self Care
[2025-05-25] MEDS: Ketorolac 30 MG/ML Syringe IV (10:30)
[2025-05-25 10:43] LABS: Hematocrit 44.2 % (37-47); Hemoglobin 14.4 g/dL (12.0-15.0); Immature Granulocytes Count 0.050 X10^3/uL (0.0-0.0); Mean Corp Hgb Conc 32.6 g/dL (32-36); Mean Corpuscular Volume 84.5 fL (81-99); Mean Platelet Vol. 11.5 fl (6.2-12.0); NRBC Flagged by Analyzer 0 % (0-5); Platelet Count 317 K/mm3 (150-450); RBC Distribution Width CV 14.0 % (11.6-14.6); RBC Distribution Width SD 42.7 fl (35.1-43.9); Red Blood Count 5.23 M/mm3 (4.2-5.4); White Blood Count 11.4 K/mm3 (4.4-11.0)
[2025-05-25 11:01] LABS: Anion Gap 12 (5-15); BUN 12 mg/dL (4-19); BUN/Creat Ratio 15.7 RATIO (10-20); Calcium,Total 9.3 mg/dL (7.6-11.0); Carbon Dioxide 23.6 mmol/L (21.0-32.0); Chloride 101 mmol/L (98-108); Estimated Creatinine Clearance 115.88 ml/min (50-250); Glucose 440 mg/dL (70-99); Potassium 4.6 mmol/L (3.3-5.1)
[2025-05-25 11:35] LABS: Mucous, Urine 0 SEEN /hpf (<or=2+)
[2025-05-25 11:44] LABS: Color, Urine Yellow (Yellow); Glucose, Dipstick 1000 mg/dl (Normal); Ketone-Dipstick Negative (Negative); Leukocyte Esterase-Dipstick 500 /ul (Negative); Nitrite-Dipstick Negative (Negative); Occult Blood-Urine 50 /ul (Negative); Protein-Dipstick 15 mg/dl (Negative); Specific Gravity, Urine 1.015 (1.002-1.030); Urine Bilirubin Dipstick Negative (Negative)
[2025-05-25 11:50] LABS: Red Blood Cells-Urine 0-5 SEEN /hpf (0-5); Squamous Epithelial Cells - UA 5-10 SEEN /hpf (5-10)
[2025-05-25 12:23] VITALS: BP 167/86; PULSE 80; RESP 16; TEMP 37; O2SAT 100
== END 2025-05-25 12:34 | disposition home or self-care (01) ==
PROVIDERS: Emergency Provider Emergency Medicine; PCP Family Medicine; Visit Provider Emergency Medicine
DX: R10.9 Unspecified abdominal pain (principal); E11.9 Type 2 diabetes mellitus without complications; Z90.710 Acquired absence of both cervix and uterus; Z87.891 Personal history of nicotine dependence; Z90.49 Acquired absence of other specified parts of digestive tract; F41.8 Other specified anxiety disorders; Z79.899 Other long term (current) drug therapy; Z79.84 Long term (current) use of oral hypoglycemic drugs; N13.2 Hydronephrosis with renal and ureteral calculous obstruction
CPT/HCPCS: 74176; 80048; 81001; 85025; 96374; 96375; 96376; 99283; A4216; J2405